=== PATIENT | female | born 1950 | race Caucasian/White ===

== ENCOUNTER 2017-01-16 13:25 | Outpatient (CLI) | payer MEDICARE, OTHER | END 2017-01-16 13:26 | disposition home or self-care (01) | DX: K58.9 Irritable bowel syndrome, unspecified (principal); D50.9 Iron deficiency anemia, unspecified; I10 Essential (primary) hypertension; M51.86 Other intervertebral disc disorders, lumbar region; F32.9 Major depressive disorder, single episode, unspecified; E78.5 Hyperlipidemia, unspecified ==

== ENCOUNTER 2017-04-18 16:46 | Outpatient (CLI) | payer MEDICARE, OTHER | END 2017-04-18 16:47 | disposition critical access hospital (66) | LOC: EMS 16:46 | PROVIDERS: ATTEND Surgery | DX: R45.89 Other symptoms and signs involving emotional state (principal) | CPT/HCPCS: A0425; A0429 ==

== ENCOUNTER 2017-04-18 17:16 | Emergency (ER) | payer MEDICARE, OTHER ==
[2017-04-18 17:25] VITALS: BP 129/88
--- NOTE | 2017-04-18 18:02 | ED Physician Documentation ---
PD HPI MHE - Stated complaint Stated Complaint: MHE - Chief complaint Chief Complaint: MHE - History obtained from History obtained from: Patient - History of Present Illness Primary symptom: Depression. No: Suicidal ideation, Psychosis, Off meds (had started a new med last week for insomnia and says she is sleeping better but still feeling a bit foggy during the mornings and thinks it might be too strong. Her main complaint here in ED is having problems with her apartment, feeling there is mold in it and it might be causing some congestion the trouble sleeping. The school business manager and low-income housing contact center consultant had not gotten back to her in the past few days after she called them.) Timing - onset: How many weeks ago (trouble sleeping for weeks, being treated. Troubles with her apartment mold for long time.) Contributing factors: Other (housing problems with her apartment) Similar symptoms before: Has not had sx before Recently seen: Clinic (seen for insomnia and had Seroquel Rx, which she says is allowing her to sleep better, but feeling foggy in the mornings.) Review of Systems Constitutional: denies: Fever, Chills Nose: denies: Rhinorrhea / runny nose, Congestion Throat: denies: Sore throat Cardiac: denies: Chest pain / pressure Respiratory: denies: Cough GI: denies: Abdominal Pain, Nausea, Vomiting, Diarrhea, Bloody / black stool : denies: Dysuria, Frequency Musculoskeletal: reports: Back pain (chronic) Neurologic: denies: Generalized weakness, Difficulty speaking, Near syncope, Confused, Altered mental status, Headache Psychiatric: reports: Anxiety, Insomnia. 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 HEENT: Tonsil/Adenoidectomy, Other - Present Medications Home Medications: Ambulatory Orders Medication Instructions Recorded Confirmed Albuterol Sulfate [Albuterol 2 puffs INH Q6HR PRN 03/23/15 04/16/17 Sulfate Hfa] Cetirizine [ZyrTEC] 10 mg PO DAILY 03/23/15 04/16/17 Fluticasone [Flonase] 2 spr OPHELIA DAILY 03/23/15 04/16/17 Gabapentin 900 mg PO DAILY 03/23/15 04/16/17 Lisinopril 10 mg PO DAILY 03/23/15 04/16/17 Montelukast Sodium [Singulair] 10 mg PO DAILY 03/23/15 04/16/17 Omeprazole [PriLOSEC] 1 cap PO DAILY 03/23/15 04/16/17 amLODIPine [Norvasc] 1 tab PO DAILY 03/23/15 04/16/17 oxyCODONE/ACET 5/325 [Percocet 5 1 tab PO TID 03/23/15 04/16/17 mg/325 mg] Ketoconazole 1 applic TP BID PRN 02/19/17 04/16/17 QUEtiapine [SEROquel] 50 mg PO DAILY 04/16/17 04/16/17 Benzonatate [Tessalon] 100 mg PO TID PRN #25 capsule 04/18/17 Dexamethasone [Decadron] 4 mg PO DAILY #5 tablet 04/18/17 - Allergies Allergies/Adverse Reactions: Allergies Allergy/AdvReac Type Severity Reaction Status Date / Time ibuprofen [From Motrin] AdvReac Headache Verified 03/23/15 13:04 - Social History Does the pt smoke?: No Smoking Status: Never smoker PD ED PE NORMAL - Vitals Vital signs reviewed: Yes - General General: Alert and oriented X 3, Well developed/nourished - HEENT HEENT: PERRL, EOMI, Pharynx benign - Neck Neck: Supple, no meningeal sign, No adenopathy - Cardiac Cardiac: RRR, No murmur - Respiratory Respiratory: Clear bilaterally - Abdomen Abdomen: Soft, Non tender - Derm Derm: Normal color, Warm and dry - Extremities Extremities: No tenderness to palpate, Normal ROM s pain - Neuro Neuro: Alert and oriented X 3, 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 She is also having trouble with her housing apartment and says the car rental agency manager is not responding to her. She asks if SW can help with that. I told her that they have gone for the day but I also don't think that they would have much enforcement/control over low-income housing issues. ), d/w patient Departure - Departure Disposition: 01 Home, Self Care Clinical Impression: Medication side effect, Cough Condition: Stable Record reviewed to determine appropriate education?: Yes Follow-Up: William Diaz MD [Provider Admit Priv/Credential] - Prescriptions: Dexamethasone [Decadron] 4 mg PO DAILY #5 tablet Benzonatate [Tessalon] 100 mg PO TID PRN #25 capsule PRN Reason: Cough Comments: I would suggest cutting the Seroquel in half (25 mg) at night and see if it does not give as much side effect and still allow sleep. For the cough, Continue your Albuterol inhaler 2 puffs 3-4 times daily. Can add Tessalon for cough and also Decadron (mild steroid) to reduce bronchiole inflammation. Follow up PMD Friday. Discharge Date/Time: 04/18/17 18:59
[2017-04-18] MEDS ORDERED: oxyCOD/ACETAMIN 5 MG/325 MG TABLET PO STA (18:14)
[2017-04-18] MEDS ORDERED: GABAPENTIN 100 MG CAPSULE PO STA (18:14)
[2017-04-18] MEDS ORDERED: oxyCOD/ACETAMIN 5 MG/325 MG TABLET PO ONE (18:22)
[2017-04-18] MEDS ORDERED: GABAPENTIN 300 MG CAPSULE ONE (18:23)
== END 2017-04-18 18:59 | disposition home or self-care (01) ==
LOC: EDUNIT# → ED 17:16
DX: F41.9 Anxiety disorder, unspecified (principal); T50.995A Adverse effect of other drugs, medicaments and biological substances, initial encounter; R05 Cough; I10 Essential (primary) hypertension; J44.9 Chronic obstructive pulmonary disease, unspecified; J45.909 Unspecified asthma, uncomplicated; Z86.010 Personal history of colon polyps; M19.90 Unspecified osteoarthritis, unspecified site; M06.9 Rheumatoid arthritis, unspecified; M10.9 Gout, unspecified
CPT/HCPCS: 99283; A9270

== ENCOUNTER 2017-05-28 14:00 | Outpatient (CLI) | payer MEDICARE, OTHER ==
--- NOTE | 2017-05-29 17:36 | Mammography Report ---
DIGITAL SCREENING MAMMOGRAM: 05/28/2017 CLINICAL INDICATION: A 66-year-old for screening. COMPARISON: 12/2010, 06/2009, 11/2007. TECHNIQUE: Routine CC and MLO projections were obtained of the breasts. FINDINGS: Scattered fibroglandular tissue is present within the breasts. There are no dominant mass es, suspicious microcalcifications, or secondary signs of malignancy. In comparison to the previous studies, there are no significant changes. ASSESSMENT: NO MAMMOGRAPHIC EVIDENCE OF MALIGNANCY. NO SIGNIFICANT INTERVAL CHANGES. RECOMMENDATION: Screening mammography is recommended annually. BIRADS category 1 - negative. STANDARD QUALIFYING STATEMENTS 1. This examination was reviewed with the aid of Computed-Aided Detection (CAD). 2. A negative or benign imaging report should not delay biopsy if clinically suspicious findings are present. Consider surgical consultation if warranted. More than 5% of cancers are not identified b y imaging. 3. Dense breasts may obscure an underlying neoplasm. JOB #: [id number] EXT JOB #:[id number]
== END 2017-05-28 14:01 | disposition home or self-care (01) ==
LOC: DI 14:00
PROVIDERS: ATTEND Internal Medicine
DX: Z12.31 Encounter for screening mammogram for malignant neoplasm of breast (principal)
CPT/HCPCS: 77067

== ENCOUNTER 2017-06-03 12:56 | Outpatient (CLI) | payer MEDICARE, OTHER ==
--- NOTE | 2017-06-04 08:52 | XRAY Report ---
TWO-VIEW CHEST: 06/03/2017 CLINICAL INDICATION: Asthma. FINDINGS: Frontal and lateral views of the chest demonstrate a normal cardiac silhouette. The lungs are hyperinflated, compatible with COPD. No focal consolidation, effusion, or pneumothorax is prese nt. IMPRESSION: HYPERINFLATION. NO EVIDENCE OF ACUTE CARDIOPULMONARY DISEASE. JOB #: [id number] EXT JOB #:[id number]
== END 2017-06-03 12:57 | disposition home or self-care (01) ==
LOC: RT 12:56
PROVIDERS: ATTEND Internal Medicine
DX: J45.909 Unspecified asthma, uncomplicated (principal); R05 Cough; F17.200 Nicotine dependence, unspecified, uncomplicated
CPT/HCPCS: 71020; 94010

== ENCOUNTER 2017-07-11 09:39 | Outpatient (CLI) | payer MEDICARE, OTHER ==
--- NOTE | 2017-07-11 13:33 | DEXA Report ---
DEXA SCAN: 07/11/2017 CLINICAL INDICATION: Postmenopausal. TECHNIQUE: Dual energy x-ray absorptiometry (DXA) was performed on a [employer] system. Regions measured are the AP spine, femoral neck, and, if needed, forearm. COMPARISON: None. In accordance with the International Society for Clinical Densitometry (ISCD) guidelines, data from previous exams may be reanalyzed using current recommendations and techniques. This is done to allow a more accurate basis for comparison with the current study. FINDINGS The data for the lumbar spine is as follows: REGION BMD (g/cm/cm) T-SCORE Z-SCORE L1 0.952 -1.5 0.1 L2 1.425 1.9 3.5 L3 1.430 1.9 3.5 L4 1.156 -0.4 1.3 TOTAL 1.236 0.5 2.1 NOTE: All evaluable vertebrae are used for classification. The data for the hip is as follows: REGION BMD (g/cm/cm) T-SCORE Z-SCORE Neck 0.865 -1.2 0.3 TOTAL 0.8788 -1.0 0.2 NOTE: The femoral neck or total proximal femur, whichever is lowest, is used for classification. IMPRESSION: THE WHO CLASSIFICATION BASED ON THE INTERNATIONAL REFERENCE STANDARD IS OSTEOPENIA (REFERENCE LEFT FEMORAL NECK). THE FRACTURE RISK IS INCREASED. RECOMMENDATION: Patients with diagnosis of osteoporosis or osteopenia should have regular bone mineral density assessment. For those eligible for Medicare, routine testing is allowed once every 2 years. Testing frequency can be increased for patients who have rapidly progressing disease or for those who are receiving medical therapy to restore bone mass. COMMENT: World Health Organization (WHO) definitions for osteoporosis and osteopenia: NORMAL BMD: T-score at -1.0 or higher, fracture risk is low. OSTEOPENIA BMD: T-score between -1.0 and -2.5, fracture risk is increased. OSTEOPOROSIS BMD: T-score at -2.5 or lower, fracture risk high. National Osteoporosis Foundation recommends: 1. Obtain adequate dietary calcium (at least 1200 mg per day) and vitamin D (400 -800 international units per day). 2. Participate, as appropriate, in regular weightbearing and muscle- strengthening exercise. 3. Avoid tobacco use and reduce alcohol and caffeine intake. 4. For more detailed information see the website at www.NOF.org. MTDD
== END 2017-07-11 09:40 | disposition home or self-care (01) ==
LOC: DI 09:39
PROVIDERS: ATTEND Internal Medicine
DX: M85.88 Other specified disorders of bone density and structure, other site (principal); N95.8 Other specified menopausal and perimenopausal disorders
CPT/HCPCS: 77080

== ENCOUNTER 2017-07-16 15:31 | Outpatient (CLI) | payer MEDICARE, OTHER ==
--- NOTE | 2017-07-17 11:08 | CT Report ---
CT CHEST WITHOUT CONTRAST FOR LUNG CANCER SCREENIN07/16/2017 CLINICAL INDICATION: A 66-year-old asymptomatic patient with [id number] history of smoking, curren t smoker for lung cancer screening. TECHNIQUE: Axial CT images of the chest were obtained without intravenous contrast, using low-dose s creening technique. No previous CT is available for comparison. In accordance with CT protocol optimization, one or more of the following dose reduction techniques w ere utilized for this exam: automated exposure control, adjustment of mA and/or KV based on patient size, or use of iterative reconstructive technique. FINDINGS: The heart and great vessels demonstrate atherosclerotic calcifications. No hilar or media stinal lymphadenopathy is present. The lungs demonstrate emphysematous changes. There is a 5-mm nod ule in the posterolateral left lower lobe (axial image 87), and a 3-mm nodule in the anterolateral ri ght lower lobe (axial image 67). No effusion or pneumothorax is present. Limited evaluation of uppe r abdominal structures demonstrates normal adrenal glands. Osseous structures demonstrate degenerati ve changes. IMPRESSION: BENIGN APPEARANCE. RECOMMENDATION: Continue annual screening with low-dose CT in 12 months. LUNG-RADS CATEGORY 2 - BENIGN APPEARANCE. JOB #: [id number] EXT JOB #:[id number]
== END 2017-07-16 15:32 | disposition home or self-care (01) ==
LOC: DI 15:31
PROVIDERS: ATTEND Internal Medicine
DX: Z12.2 Encounter for screening for malignant neoplasm of respiratory organs (principal); F17.210 Nicotine dependence, cigarettes, uncomplicated

== ENCOUNTER 2017-10-23 12:45 | Outpatient (CLI) | payer MEDICARE, OTHER ==
--- NOTE | 2017-10-23 18:47 | XRAY Report ---
DATE OF SERVICE: 10/23/2017 TWO VIEW BILATERAL FEET: 10/23/2017 CLINICAL INDICATION: Rheumatoid arthritis. Frontal and lateral views of the bilateral feet demonstrate bilateral arthritic changes of the first metatarsophalangeal joints, with moderate hallux valgus bilaterally. There is no evidence of acute fracture. No periarticular erosions are seen. IMPRESSION: Moderate bilateral hallux valgus, with moderate arthritic changes at the 1st metatarsophalangeal joints. TD: 10/23/2017 19:46
== END 2017-10-23 12:46 | disposition home or self-care (01) ==
LOC: DI 12:45
PROVIDERS: ATTEND Family Medicine
DX: M06.9 Rheumatoid arthritis, unspecified (principal); M20.12 Hallux valgus (acquired), left foot; M20.11 Hallux valgus (acquired), right foot

== ENCOUNTER 2018-03-10 16:07 | Emergency (ER) | payer MEDICARE, OTHER ==
[2018-03-10 17:06] LABS: BILIRUBIN,URINE NEGATIVE (NEGATIVE); GLUCOSE, URINE (UA) NEGATIVE (NEGATIVE); KETONES,URINE (UA) NEGATIVE (NEGATIVE); LEUKOCYTE ESTERASE, URINE NEGATIVE (NEGATIVE); NITRITE,URINE NEGATIVE (NEGATIVE); OCCULT BLOOD,URINE NEGATIVE (NEGATIVE); PH,URINE 7.5 PH (5.0-7.5); PROTEIN,URINE NEGATIVE (NEGATIVE); UROBILINOGEN,URINE 0.2 (NORMAL) E.U./dL (NORMAL)
[2018-03-10 17:07] LABS: CLARITY,URINE CLEAR (CLEAR)
[2018-03-10] MEDS ORDERED: DEXAMETHASONE 10 MG/ML VIAL IVP STA (17:24)
[2018-03-10] MEDS ORDERED: KETOROLAC 60 MG/2 ML VIAL IVP STA (17:24)
[2018-03-10] MEDS ORDERED: SODIUM CHLORIDE 0.9% 1,000 ML IV ONE (17:24)
[2018-03-10] MEDS ORDERED: cefTRIAXone 1 GM in SODIUM CHLORIDE 0.9% MINIBAG 100 ML IV STA (17:24)
--- NOTE | 2018-03-10 17:27 | ED Physician Documentation ---
PD HPI BACK PAIN - Stated complaint Stated Complaint: LOW BACK PX - Chief complaint Chief Complaint: Back Pain - History obtained from History obtained from: Patient - History of Present Illness Timing - onset: How many months ago (2+) Timing - duration: Months (2+) Timing - details: Gradual onset, Still present, Waxing and waning Location: Lower, Right Quality: Pain, Spasm, Sharp Associated symptoms: No: Fever, Weakness, Numbness, Incontinent of urine, Unable to urinate, Hematuria, Incontinent of stool Improves with: Position, Meds Worsened by: Movement Similar symptoms before: Diagnosis (sciatica) Recently seen: Clinic - Additional information Additional information: 67-year-old female with history of fibromyalgia who is on Percocet regularly has developed some pain in her right back and radiation around to the front. She has had this present for about 2 months now and the pain has become intolerable. She does have recollection that while she was taking some antibiotics for an abscessed tooth her pain seemed to improve somewhat and when she finished the antibiotics the pain came back and is now worse. She does have a history of irritable bowel and feels that her bowels are "all messed up". She is having some issues with constipation and low stool output. She takes Percocet 3 per day and she is not having relief of this pain that medicine. Review of Systems Constitutional: reports: Myalgias, Fatigue, Sweats. denies: Fever Eyes: denies: Decreased vision Ears: reports: Ear pain Nose: reports: Congestion, Sinus pressure / pain Throat: denies: Sore throat Cardiac: denies: Chest pain / pressure, Palpitations Respiratory: denies: Dyspnea, Cough GI: reports: Abdominal Pain, Constipation : denies: Dysuria, Frequency Skin: denies: Rash Musculoskeletal: reports: Back pain, Extremity pain. 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 HEENT: Tonsil/Adenoidectomy, Other - Present Medications Home Medications: Ambulatory Orders Medication Instructions Recorded Confirmed Albuterol Sulfate [Albuterol 2 puffs INH Q6HR PRN 03/23/15 01/07/18 Sulfate Hfa] Fluticasone [Flonase] 2 spr OPHELIA DAILY 03/23/15 01/07/18 Gabapentin 900 mg PO DAILY 03/23/15 01/07/18 Lisinopril 10 mg PO DAILY 03/23/15 01/07/18 Montelukast Sodium [Singulair] 10 mg PO DAILY 03/23/15 01/07/18 Omeprazole [PriLOSEC] 1 cap PO DAILY 03/23/15 01/07/18 amLODIPine [Norvasc] 1 tab PO DAILY 03/23/15 01/07/18 oxyCODONE/ACET 5/325 [Percocet 5 1 tab PO TID 03/23/15 01/07/18 mg/325 mg] Ketoconazole 1 applic TP BID PRN 02/19/17 01/07/18 QUEtiapine [SEROquel] 50 mg PO DAILY 04/16/17 01/07/18 Cyclobenzaprine HCl 1 tab PO DAILY 01/07/18 01/07/18 Meloxicam 1 tab PO DAILY 01/07/18 01/07/18 Amox/Clav 875/125 [Augmentin] 1 each PO Q12H #20 tablet 03/10/18 - Allergies Allergies/Adverse Reactions: Allergies Allergy/AdvReac Type Severity Reaction Status Date / Time ibuprofen [From Motrin] AdvReac Headache Verified 03/23/15 13:04 - Social History Does the pt smoke?: No Smoking Status: Never smoker PD ED PE NORMAL - Vitals Vital signs reviewed: Yes - General General: Alert and oriented X 3, No acute distress, Well developed/nourished - HEENT HEENT: Atraumatic, PERRL, EOMI, Other (The mucous membranes are dry. The TM's are inflamed bilaterally with rounding of the landmarks. ) - Neck Neck: Supple, no meningeal sign, No bony TTP - Cardiac Cardiac: RRR, No murmur - Respiratory Respiratory: No respiratory distress, Clear bilaterally - Abdomen Abdomen: Soft, Other (There is specific right lower quadrant pain to palpation along the inguinal ligament. ) - Back Back: No CVA TTP, Other (There is tenderness to a specific area of the lower lumbar spine over the L4/5 region on the right. ) - Derm Derm: Normal color, Warm and dry, No rash - Extremities Extremities: No deformity, No edema - Neuro Neuro: Alert and oriented X 3, No motor deficit, No sensory deficit, Normal speech Eye Opening: Spontaneous Motor: Obeys Commands Verbal: Oriented GCS Score: 15 - Psych Psych: Other (The mood is defeated and the affect is flat. ) Results - Vitals Vitals: Vital Signs - 24 hr 03/10/18 16:35 Temperature 36.6 C Heart Rate 78 Respiratory 17 Rate Blood Pressure 142/65 H O2 Saturation 100 Oxygen O2 Source Room air - Labs Labs: Laboratory Tests 03/10/18 03/10/18 03/10/18 16:50 17:30 17:30 WBC 7.2 RBC 4.43 Hgb 13.2 Hct 40.0 MCV 90.4 MCH 29.9 MCHC 33.0 RDW 13.6 Plt Count 256 MPV 7.5 L Neut # (Auto) 4.7 Lymph # (Auto) 2.0 Mitchell # (Auto) 0.5 Eos # (Auto) 0.1 Baso # (Auto) 0.0 Absolute Nucleated RBC 0.00 Nucleated RBC % 0.0 Sodium 133 L Potassium 4.7 Chloride 98 L Carbon Dioxide 26 Anion Gap 9.0 BUN 11 Creatinine 0.8 Estimated GFR (MDRD) 72 L Glucose 100 Calcium 10.1 Total Bilirubin 0.5 AST 24 ALT 16 Alkaline Phosphatase 95 Total Protein 7.5 Albumin 4.8 Globulin 2.7 Albumin/Globulin Ratio 1.8 Lipase 31 Urine Color YELLOW Urine Clarity CLEAR Urine pH 7.5 Ur Specific [place] 1.010 Urine Protein NEGATIVE Urine Glucose (UA) NEGATIVE Urine Ketones NEGATIVE Urine Occult Blood NEGATIVE Urine Nitrite NEGATIVE Urine Bilirubin NEGATIVE Urine Urobilinogen 0.2 (NORMAL) Ur Leukocyte Esterase NEGATIVE Ur Microscopic Review NOT INDICATED Urine Culture Comments NOT INDICATED - Rads (name of study) CT abdomen and pelvis with Radiology: Prelim report reviewed (Impression: 1. Right renal lithiasis.2 Mild obstipation.3 Normal appendix.), EMP read indepedently, See rad report PD MEDICAL DECISION MAKING - ED course Complexity details: reviewed results, re-evaluated patient, considered differential, d/w patient ED course: 67 y/o female with right sided hip/inguinal pain for months does not think this is her sciatica. She does have the curious history of her pain being better while she was on abx for a tooth abcess and sinus infection. On exam today she continues to have evidence of OM. She reports poor stool output and she is tender to the inguinal ligament. A CT scan of the abdomen and pelvis is ordered and she is treated for sciatica and OM with decadron, rocephin and toradal as well as a liter of saline. Her CT scan is impressive for the amount of stool present and this is addressed with the patient as well. Departure - Departure Disposition: 01 Home, Self Care Clinical Impression: Constipation by delayed colonic transit Sciatica Qualifiers: Laterality: right Qualified Code(s): M54.31 - Sciatica, right side Otitis media Qualifiers: Otitis media type: suppurative Chronicity: acute Laterality: bilateral Recurrence: not specified as recurrent Spontaneous tympanic membrane rupture: without spontaneous rupture Qualified Code(s): H66.003 - Acute suppurative otitis media without spontaneous rupture of ear drum, bilateral Condition: Stable Instructions: ED Constipation, ED Otitis Media Acute Adult, ED Sciatica Follow-Up: Waylon Power DO [Primary Care Provider] - Prescriptions: Amox/Clav 875/125 [Augmentin] 1 each PO Q12H #20 tablet
[2018-03-10 17:40] LABS: BASOPHILS % (AUTO) 0.7 %; EOSINOPHILS # (AUTO) 0.1 10^3/uL (0.0-0.7); HGB - HEMOGLOBIN 13.2 g/dL (12.0-16.0); LYMPHOCYTES % (AUTO) 26.9 %; MEAN CORPUSCULAR HEMOGLOBIN 29.9 pg (27.0-31.0); MEAN CORPUSCULAR VOLUME 90.4 fL (81.0-99.0); MEAN PLATELET VOLUME 7.5 fL (7.9-10.8); MONOCYTES # (AUTO) 0.5 10^3/uL (0.0-1.0); MONOCYTES % (AUTO) 6.3 %; NEUTROPHILS # (AUTO) 4.7 10^3/uL (1.5-6.6); NEUTROPHILS % (AUTO) 65.1 %; PLT - PLATELET COUNT 256 10^3/uL (130-450); RED BLOOD COUNT 4.43 10^6/uL (4.20-5.40); RED CELL DISTRIBUTION WIDTH 13.6 % (12.0-15.0); WHITE BLOOD COUNT 7.2 x10^3/uL (4.8-10.8)
[2018-03-10 17:53] LABS: ALBUMIN 4.8 g/dL (3.2-5.5); ALBUMIN/GLOBULIN RATIO 1.8 (1.0-2.2); BILIRUBIN,TOTAL 0.5 mg/dL (0.2-1.0); CALCIUM 10.1 mg/dL (8.5-10.3); CREATININE 0.8 mg/dL (0.4-1.0); TOTAL PROTEIN 7.5 g/dL (6.7-8.2)
[2018-03-10] MEDS ORDERED: IOPAMIDOL-300 100 ML VIAL ONE (17:56)
[2018-03-10] MEDS ORDERED: cefTRIAXone 1 GM VIAL ONE (18:04)
[2018-03-10] MEDS ORDERED: IOPAMIDOL-300 100 ML VIAL IVP ONE (18:32)
[2018-03-10] MEDS ORDERED: MAGNESIUM HYDROXIDE 2,400 MG/30 ML UDC PO STA (18:43)
--- NOTE | 2018-03-10 18:53 | CT Preliminary Report ---
Exam: CT ABDOMEN/PELVIS W/ IMPRESSION: 1. Right renal lithiasis. 2. Mild obstipation. 3. Normal appendix. [facility] SITE ID: [id number]
--- NOTE | 2018-03-10 18:55 | CT Report ---
EXAM: CT ABDOMEN AND PELVIS. EXAM DATE: 03/10/2018 06:15 PM. CLINICAL HISTORY: Right lower quadrant pain for several weeks, increasing since last week. Nausea and vomiting. Chronic constipation. COMPARISONS: None. TECHNIQUE: Routine helical CT imaging was performed through the abdomen and pelvis. IV contrast: 100 cc Isovue-300. Enteric contrast: No. Reconstructions: Coronal and sagittal. In accordance with CT protocol optimization, one or more of the following dose reduction techniques w ere utilized for this exam: automated exposure control, adjustment of mA and/or KV based on patient s ize, or use of iterative reconstructive technique. FINDINGS: Lung Bases: Unremarkable. Liver: Normal. No masses. Gallbladder/Bile Ducts: Unremarkable. Spleen: Normal. Pancreas: Normal. Adrenal Glands: Normal. Kidneys: 2 mm stone superior right calyx. Several 2.5 cm and smaller left renal cyst. Kidneys are otherwise unremarkable. No hydronephrosis. Peritoneal Cavity/Bowel: Marked amount of stool throughout the borderline enlarged colon. No free flu id, free air or adenopathy. No masses or acute inflammatory process. The appendix is well visualized and normal. Pelvic Organs: No stones within the small caliber urinary bladder. Uterus is either very small or amy gically absent. No free fluid nor adnexal mass lesions. Vasculature: No aneurysms or other significant abnormality. Bones: Marked degenerative disk disease L2-L3 . No significant abnormality. Other: None. IMPRESSION: 1. Right renal lithiasis. 2. Mild obstipation. 3. Normal appendix. [facility] Referring Provider Line: [phone] SITE ID: [id number]
[2018-03-10 19:17] VITALS: BP 178/75
== END 2018-03-10 19:16 | disposition home or self-care (01) ==
LOC: ED 16:07
DX: K59.01 Slow transit constipation (principal); M54.31 Sciatica, right side; H66.003 Acute suppurative otitis media without spontaneous rupture of ear drum, bilateral; I10 Essential (primary) hypertension; M06.9 Rheumatoid arthritis, unspecified
CPT/HCPCS: 36415; 74177; 80053; 81003; 83690; 85025; 96365; 96375; 99283; 99284; A9270; Q9967; 81001; 87086

== ENCOUNTER 2018-03-22 14:44 | Emergency (ER) | payer MEDICARE, OTHER ==
[2018-03-22] MEDS ORDERED: LIDOCAINE PATCH 5% TOP PRN (15:30)
--- NOTE | 2018-03-22 15:36 | ED Physician Documentation ---
History of Present Illness - Stated complaint Stated Complaint: BK PX/R LEG PX - Chief complaint Chief Complaint: Back Pain - Additonal information Additional information: hx from pt 67 female pmhx HTN COPD colon polyps RA fibromyalgia anxiety bipolar and anemia suffers from chronic pain has had low back pain for years worse recently rad to RLE (ant thigh to the foot) states she had recent dental work - but had back pain prior also recent lili OM dx in ER has had fevers at home which she has been treating with percocet diff urinating - hard to void - no incont or hematuria she is weak due to the pain she has numbness in her right leg also has constipation 2/2 pain meds last colonoscopy was 3 yr ago and showed polyps no blood in BM or urine in ED pt had CT AP with IV con that showd degen changes but no bony mets and no AAA, lili renal stones but no ureteral stones, no evidence of asbcess on CT txed with steroids in ED and dc on augmentin which she finished followed up with her PMD - per pt PMD checked her ears and her knee which has been giving out, and gave her a steroid shot for the back pain but no MRI has been discussed per pt she is presently on percocet gabapentin flexeril meloxicam as well as meds for her COPD and HTN she feels very drowsy 2/2 pain meds but she drove herself here (which i told her she absolutely cannot do as it endangers others) states pain is not controlled nurse screening question pt responded that she sometimes thinks about suicide when the pain is bad - I asked her and she is not suicidal at this time - she has outpt counselor Review of Systems Constitutional: reports: Fever Cardiac: denies: Chest pain / pressure Respiratory: denies: Dyspnea GI: reports: Abdominal Pain, Constipation. denies: Nausea Musculoskeletal: reports: Back pain Neurologic: reports: Numbness (RLE). 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 HEENT: Tonsil/Adenoidectomy, Other - Present Medications Home Medications: Ambulatory Orders Medication Instructions Recorded Confirmed Albuterol Sulfate [Albuterol 2 puffs INH Q6HR PRN 03/23/15 01/07/18 Sulfate Hfa] Fluticasone [Flonase] 2 spr OPHELIA DAILY 03/23/15 01/07/18 Gabapentin 900 mg PO DAILY 03/23/15 01/07/18 Lisinopril 10 mg PO DAILY 03/23/15 01/07/18 Montelukast Sodium [Singulair] 10 mg PO DAILY 03/23/15 01/07/18 Omeprazole [PriLOSEC] 1 cap PO DAILY 03/23/15 01/07/18 oxyCODONE/ACET 5/325 [Percocet 5 1 tab PO TID 03/23/15 01/07/18 mg/325 mg] Ketoconazole 1 applic TP BID PRN 02/19/17 01/07/18 Cyclobenzaprine HCl 1 tab PO DAILY 01/07/18 01/07/18 Meloxicam 1 tab PO DAILY 01/07/18 01/07/18 Felodipine [Felodipine ER] 03/22/18 Lidocaine Patch 5% [Lidoderm Patch] 1 each TOP DAILY PRN #10 patch 03/22/18 - Allergies Allergies/Adverse Reactions: Allergies Allergy/AdvReac Type Severity Reaction Status Date / Time ibuprofen [From Motrin] AdvReac Headache Verified 03/23/15 13:04 - Social History Does the pt smoke?: No Smoking Status: Never smoker PD ED PE NORMAL - Vitals Vital signs reviewed: Yes - General General: Alert and oriented X 3 - Cardiac Cardiac: RRR - Respiratory Respiratory: No respiratory distress - Abdomen Abdomen: Soft, Other (mod TTP s peritoneal signs and no pulsatile mass (and pt had a CT within last 2 weeks for same sx)) - Back Back: Other (no focal spine pain redness or swelling, diffuse pain does not seem to be worsened by palpation but is worse with movement) - Derm Derm: Normal color - Extremities Extremities: Normal ROM s pain. No: No edema (mod lili symm edema R > L) - Neuro Neuro: Alert and oriented X 3, Other (states dec senaation RLE, denies saddle anesthesia, SLR worsens back pain but not leg pain, no ankle clonus, very weak effort at all attempts at ROM 2/2 pain but is able to attempt foot dorsi plant knee ext and hip flexion, tried but could not get pt postioned well enough to check patellar DTRs) Results - Vitals Vitals: Vital Signs - 24 hr 03/22/18 03/22/18 14:49 17:22 Temperature 36.6 C Heart Rate 84 72 Respiratory 18 16 Rate Blood Pressure 114/61 151/81 H O2 Saturation 98 99 Oxygen O2 Source Room air - Labs Labs: Laboratory Tests 03/22/18 03/22/18 03/22/18 15:39 15:39 15:39 WBC 6.7 RBC 4.51 Hgb 14.0 Hct 41.6 MCV 92.1 MCH 31.0 MCHC 33.6 RDW 13.5 Plt Count 279 MPV 7.4 L Neut # (Auto) 4.4 Lymph # (Auto) 1.7 [place] # (Auto) 0.5 Eos # (Auto) 0.0 Baso # (Auto) 0.0 Absolute Nucleated RBC 0.01 Nucleated RBC % 0.1 ESR 6 Sodium 135 Potassium 3.7 Chloride 99 L Carbon Dioxide 27 Anion Gap 9.0 BUN 8 Creatinine 0.6 Estimated GFR (MDRD) 100 Glucose 106 H Calcium 9.9 C-Reactive Protein < 1.0 Urine Color Urine Clarity Urine pH Ur Specific [place] Urine Protein Urine Glucose (UA) Urine Ketones Urine Occult Blood Urine Nitrite Urine Bilirubin Urine Urobilinogen Ur Leukocyte Esterase Ur Microscopic Review Urine Culture Comments 03/22/18 16:31 WBC RBC Hgb Hct MCV MCH MCHC RDW Plt Count MPV Neut # (Auto) Lymph # (Auto) [place] # (Auto) Eos # (Auto) Baso # (Auto) Absolute Nucleated RBC Nucleated RBC % ESR Sodium Potassium Chloride Carbon Dioxide Anion Gap BUN Creatinine Estimated GFR (MDRD) Glucose Calcium C-Reactive Protein Urine Color LT. YELLOW Urine Clarity CLEAR Urine pH 7.5 Ur Specific [place] 1.010 Urine Protein NEGATIVE Urine Glucose (UA) NEGATIVE Urine Ketones NEGATIVE Urine Occult Blood NEGATIVE Urine Nitrite NEGATIVE Urine Bilirubin NEGATIVE Urine Urobilinogen 0.2 (NORMAL) Ur Leukocyte Esterase NEGATIVE Ur Microscopic Review NOT INDICATED Urine Culture Comments NOT INDICATED - Rads (name of study) duplex RLE Radiology: See rad report (neg ) PD MEDICAL DECISION MAKING - ED course ED course: back pain is long standing by pt report but worse recently reported fevers at home and worsening pain were concerning pt had recent CT with IV con for same sx within the last two weeks - no spine abn seen - considered MRI but that service is not available today at [facility] so checked labs and post void pt is afebrile here, has no saddle anesthesia, nl WBC, neg ESR and CRP and had a post void residual of zero so given the resources available to me at this time, i feel it is unlikely pt had an epidural abscess or cauda equina she is already on numerous meds for pain so will not b able to rx further controlled meds for her she reports no relief with steroids from her PMD so will add lido patches still feel pt needs a MRI but feel safe to defer to outpt setting will ask her to fup PMD next 48 hr to get this scheduled she was ambulating independently in the ER after lido and ofirmev - Sepsis Event Vital Signs: Vital Signs - 24 hr 03/22/18 03/22/18 14:49 17:22 Temperature 36.6 C Heart Rate 84 72 Respiratory 18 16 Rate Blood Pressure 114/61 151/81 H O2 Saturation 98 99 Oxygen O2 Source Room air Departure - Departure Disposition: Home, Self Care Clinical Impression: Sciatica Qualifiers: Laterality: right Qualified Code(s): M54.31 - Sciatica, right side Condition: Good Instructions: ED Sciatica, ED Neck Back Pain General Follow-Up: Waylon Power DO [Primary Care Provider] - (tomorroow to discuss getting a MRI) Prescriptions: Lidocaine Patch 5% [Lidoderm Patch] 1 each TOP DAILY PRN #10 patch PRN Reason: Pain Comments: We tried to get a MRI today for you but that service is not available on Sundays Your exam and work up with the resources that are available today are reassuring that you do not have a severe disk herniation compressing your spinal cord or an infection around the spinal cord. I still want you to get the MRI but given the reassuring work up, I think it safe for you to go home for tonight and have your PMD order the MRI as an outpatient. Because of the leg pain and your limited mobility, we also got an ultrasound of you leg and no blood clot was found You had a CT scan for similar symptoms within the last few weeks and no aneurysms was seen, some degenerative changes of the spine were noted but no fracture or bony displacement And the urine sample does not show any blood to suggest a kidney stone is passing nor any bacteria to suggest a kidney infection You are already on percocet gabapentin flexeril and meloxicam so the only medication i can think to add is lidocaine patches You reported to the ER staff that the severity of the pain sometimes makes you think about . you told me you were not feeling suicidal today. But I do recommend you follow up with your counselor about these feelings and ways to help handle the burden of chronic pain You cannot drive while taking sedating medications - it puts you and everyone else at risk
[2018-03-22 15:50] LABS: BASOPHILS % (AUTO) 0.5 %; EOSINOPHILS % (AUTO) 0.6 %; LYMPHOCYTES # (AUTO) 1.7 10^3/uL (1.5-3.5); LYMPHOCYTES % (AUTO) 25.2 %; MEAN CORPUSCULAR HGB CONC 33.6 g/dL (32.0-36.0); MEAN CORPUSCULAR VOLUME 92.1 fL (81.0-99.0); MEAN PLATELET VOLUME 7.4 fL (7.9-10.8); MONOCYTES # (AUTO) 0.5 10^3/uL (0.0-1.0); MONOCYTES % (AUTO) 7.7 %; NEUTROPHILS # (AUTO) 4.4 10^3/uL (1.5-6.6); PLT - PLATELET COUNT 279 10^3/uL (130-450); RED BLOOD COUNT 4.51 10^6/uL (4.20-5.40); RED CELL DISTRIBUTION WIDTH 13.5 % (12.0-15.0); WHITE BLOOD COUNT 6.7 x10^3/uL (4.8-10.8)
[2018-03-22] MEDS ORDERED: ACETAMINOPHEN 1,000 MG/100 ML 100 ML IV STA (16:03)
[2018-03-22 16:05] LABS: BUN - BLOOD UREA NITROGEN 8 mg/dL (6-20); CALCIUM 9.9 mg/dL (8.5-10.3); CARBON DIOXIDE - CO2 27 mmol/L (21-32); CHLORIDE 99 mmol/L (101-111); CREATININE 0.6 mg/dL (0.4-1.0); GFR - MDRD 100 (>89); GLUCOSE 106 mg/dL (70-100); SODIUM 135 mmol/L (135-145)
[2018-03-22 16:16] LABS: CRP - C-REACTIVE PROTEIN < 1.0 mg/dL (0-1.0)
[2018-03-22 16:39] LABS: BILIRUBIN,URINE NEGATIVE (NEGATIVE); GLUCOSE, URINE (UA) NEGATIVE (NEGATIVE); KETONES,URINE (UA) NEGATIVE (NEGATIVE); LEUKOCYTE ESTERASE, URINE NEGATIVE (NEGATIVE); NITRITE,URINE NEGATIVE (NEGATIVE); OCCULT BLOOD,URINE NEGATIVE (NEGATIVE); PH,URINE 7.5 PH (5.0-7.5); PROTEIN,URINE NEGATIVE (NEGATIVE); UROBILINOGEN,URINE 0.2 (NORMAL) E.U./dL (NORMAL)
[2018-03-22 16:43] LABS: CLARITY,URINE CLEAR (CLEAR)
--- NOTE | 2018-03-22 16:45 | Ultrasound Report ---
Procedure Date: 03/22/2018 Accession Number: [id number] / [id number] Procedure: US - Duplex Ext Veins Right CPT Code: FULL RESULT: EXAM: RIGHT LOWER EXTREMITY VENOUS ULTRASOUND EXAM DATE: 03/22/2018 04:30 PM. CLINICAL HISTORY: Right lower extremity pain and swelling. COMPARISON: None. TECHNIQUE: Real-time sonographic vascular imaging was performed by the nanotechnology engineering technologist through the lower extremity utilizing both color-flow and Doppler spectral analysis. Multiple solar sales representative static images were saved for review. FINDINGS: Common Femoral Vein (CFV): Normal. CFV-GSV Junction: Normal. Profunda Femoral Vein (PFV): Normal. Femoral Vein (FV) Prox: Normal. Femoral Vein (FV) Mid: Normal. Femoral Vein (FV) Dist: Normal. Popliteal Vein: Normal. Posterior Tibial Veins: Normal. Peroneal Veins: Normal. Contralateral Side CFV: Normal. Other: None. IMPRESSION: No evidence for deep venous thrombosis. [facility]
[2018-03-22 17:22] VITALS: BP 151/81
== END 2018-03-22 18:37 | disposition home or self-care (01) ==
LOC: ED 14:44
DX: M54.41 Lumbago with sciatica, right side (principal); M06.00 Rheumatoid arthritis without rheumatoid factor, unspecified site; M19.90 Unspecified osteoarthritis, unspecified site; I10 Essential (primary) hypertension; Z79.891 Long term (current) use of opiate analgesic
CPT/HCPCS: 36415; 80048; 81003; 85025; 85651; 86140; 93971; 96365; 99283; A9270; J0131; 81001; 87086

== ENCOUNTER 2018-03-25 14:33 | Outpatient (CLI) | payer MEDICARE, OTHER ==
--- NOTE | 2018-03-26 17:08 | MRI Report ---
Procedure Date: 03/25/2018 Accession Number: [id number] / [id number] Procedure: MRI - Lumbar Spine W/O CPT Code: FULL RESULT: EXAM: MRI LUMBAR SPINE WITHOUT CONTRAST. EXAM DATE: 03/25/2018 02:36 PM. CLINICAL HISTORY: Severe right-sided sciatica. No known injury. COMPARISON: MRI lumbar spine without contrast 02/07/2012. TECHNIQUE: Multiplanar, multisequence T1-weighted and fluid-sensitive sequences of the lumbar spine from T12 to S1 without contrast. Other: None. FINDINGS: Spinal Cord: The conus terminates at T12-L1. The conus medullaris and cauda equina are unremarkable. Alignment: Dextroconvex scoliosis centered at the L2-L3 level. Left lateral listhesis of L3 on L4 by approximately 4 mm. Grade 1 retrolisthesis at L2-L3 by approximately 2 mm. Bone Marrow: Five gdb-zfo-zuycljq lumbar vertebral bodies are assumed. No gross fractures or bone lesions. No bone marrow edema. Disk Levels/Facets: L5-S1: Right-sided degenerative endplate changes. Joeb-fn-dhwrvjmj right-sided and mild left-sided disk space narrowing. Minimal disk bulge. Moderate to severe facet arthropathy which has increased since the previous study. No canal stenosis. Mild foraminal stenoses. No change. L4-L5: Minimal disk bulge. Focal fissure at the left posterior lateral aspect of the disk annulus. Moderate to severe ligamentum flavum thickening and vxco-ud-aowpmadc facet arthropathy. Mild right foraminal stenosis. No canal stenosis. No change. L3-L4: There is a new posterior right paracentral disk extrusion which extends inferiorly into the upper L4 right lateral recess. The disk extrusion measures approximately 1.1 x 0.7 x 0.7 cm and causes probable impingement of the right L4 nerve. There is dvke-eg-yoefjayc right and mild left facet arthropathy. Small facet joint effusions. Mild canal stenosis. Hmfccyjn-zc-ctmsra right subarticular zone and upper L4 right lateral recess stenoses. Rojppbau-wv-wzfhtl right and mild left foraminal stenoses which is unchanged. L2-L3: Severe left-sided and severe anterior and kkqi-zm-wcwndxif right-sided disk space narrowing. Lbxuj-jj-ubbmyqyn sized left foraminal and extraforaminal disk bulge/osteophyte complex. Moderate left foraminal stenosis. Similar findings are seen on the previous study. L1-L2: Minimal disk bulge. Mild facet arthropathy. No stenoses. T12-L1: Tiny posterior central disk protrusion. Minimal caliber narrowing. No foraminal stenoses. No change. Musculature: Mild/moderate fatty atrophy of posterior paraspinal muscles. Other: The partially visualized retroperitoneum is unremarkable. IMPRESSION: 1. Kbav-al-vkdmwtif dextroconvex scoliosis centered at the L2-L3 level. Left lateral listhesis of L3 on L4 by approximately 4 mm. Grade 1 retrolisthesis at L2-L3. 2. Multilevel degenerative disk changes, osteophytosis, ligamentum flavum thickening, and facet arthropathy. Some of the more significant levels are at L3-L4 and L2-L3. 3. A new yoewi-vd-pfupfztx sized posterior right paracentral disk extrusion at L3-L4 which extends into the upper L4 right lateral recess. The disk extrusion causes impingement of the right L4 nerve. Mild canal stenosis. Gnmvsmsq-mq-fbanan right subarticular zone at upper L4 lateral recess stenoses. Rvegxvzs-pw-fowuxc right and mild left foraminal stenoses which is unchanged. 4. Oefse-yy-rauhcdea sized left foraminal and extraforaminal disk bulge/osteophyte complex at L2-L3. Moderate left foraminal stenosis. No significant change. 5. Worsening facet arthropathy at L5-S1. Mild L5-S1 foraminal stenoses. Comment: The following findings are so common in adults without low back pain that while we report their presence, they must be interpreted with caution and in the context of the clinical situation. (Reference Samanthak et al, Spine 2001) Prevalence of findings in patients without low back pain: Disk degeneration (any evidence): 92% Disk desiccation/T2 signal loss: 83% Disk height loss: 56% Disk bulge: 64% Disk protrusion: 32% Annular tear/high intensity zone: 38% RAD[facility]
== END 2018-03-25 14:34 | disposition home or self-care (01) ==
LOC: DI 14:33
PROVIDERS: ATTEND Family Medicine
DX: M51.16 Intervertebral disc disorders with radiculopathy, lumbar region (principal); M51.36 Other intervertebral disc degeneration, lumbar region; M47.896 Other spondylosis, lumbar region; M41.86 Other forms of scoliosis, lumbar region; M51.37 Other intervertebral disc degeneration, lumbosacral region; M47.897 Other spondylosis, lumbosacral region; M43.16 Spondylolisthesis, lumbar region
CPT/HCPCS: 72148

== ENCOUNTER 2018-04-24 09:57 | Outpatient (CLI) | payer MEDICARE, OTHER ==
--- NOTE | 2018-04-24 17:06 | MRI Report ---
Procedure Date: 04/24/2018 Accession Number: [id number] / [id number] Procedure: MRI - Knee RT W/O CPT Code: FULL RESULT: EXAM: RIGHT KNEE MRI WITHOUT CONTRAST EXAM DATE: 04/24/2018 10:59 AM. CLINICAL HISTORY: Instability and pain right knee. COMPARISON: Radiographs 04/17/2015. TECHNIQUE: Multiplanar, multisequence T1-weighted and fluid-sensitive sequences of the knee without contrast. Other: None. FINDINGS: Bones: Cvpe-lu-gwtfhwtt reactive edema and cystic changes at the posterolateral aspect lateral femoral condyle and to a lesser extent lateral tibial plateau. Contour deformity at the posterior margin lateral tibial plateau, suggestive of possible old impaction fracture. Minimal reactive edema at the medial aspect medial tibial plateau. Mild degenerative change at the proximal tibiofibular joint. Articular Cartilage: Shallow partial-thickness loss at the central aspect medial compartment. Large regions of full-thickness loss at the central to posterior aspects lateral compartment. Medial Meniscus: The medial meniscus is intact. Lateral Meniscus: Horizontal tear contacts the inferior articular surface anterior horn and body. Cruciate Ligaments: The anterior and posterior cruciate ligaments are intact. Collateral Ligaments: The medial collateral and lateral collateral ligamentous structures are intact. Tendons: The quadriceps, patellar, semimembranosus, and popliteus tendons are unremarkable. Musculature: No edema or fatty atrophy. Other: Small joint effusion. Moderate popliteal cyst with subtle leak proximally. No loose bodies. The medial and lateral retinacula are intact. Mild subcutaneous edema over the anterior aspect patellar tendon. Minimal reactive edema in the anterior fat pads. IMPRESSION: 1. Horizontal tear body and posterior horn lateral meniscus. 2. Tricompartmental cartilage loss, full-thickness/grade 4 at the lateral compartment. 3. Small joint effusion. [facility] MUSCULOSKELETAL RADIOLOGY SECTION
== END 2018-04-24 09:58 | disposition home or self-care (01) ==
LOC: DI 09:57
PROVIDERS: ATTEND Family Medicine
DX: S83.281A Other tear of lateral meniscus, current injury, right knee, initial encounter (principal); M23.91 Unspecified internal derangement of right knee; M25.461 Effusion, right knee

== ENCOUNTER 2018-04-29 15:45 | Outpatient (CLI) | payer MEDICARE, OTHER | END 2018-04-29 15:46 | disposition critical access hospital (66) | LOC: EMS 15:45 | PROVIDERS: ATTEND Surgery | DX: R42 Dizziness and giddiness (principal); M54.2 Cervicalgia; R51 Headache; W18.39XA Other fall on same level, initial encounter; Y92.510 Bank as the place of occurrence of the external cause | CPT/HCPCS: A0425; A0427 ==

== ENCOUNTER 2018-04-29 16:10 | Emergency (ER) | payer MEDICARE, OTHER ==
--- NOTE | 2018-04-29 17:05 | ED Physician Documentation ---
PD HPI SYNCOPE - Stated complaint Stated Complaint: GLF - Chief complaint Chief Complaint: General - History obtained from History obtained from: Patient - History of Present Illness Witnessed: Witnessed Timing - onset: Today (she was at the bank and says she felt lightheaded when went from hot outside to cool indoors and was standing there. Fell backward and struck head. possible brief LOC per bystanders. BP low initially. She says she had been feeling okay earlier in the day.) Preceding symptoms: Light headed. No: Headache, Chest pain, Palpitations, Abdominal pain Associated symptoms: Headache. No: Chest pain, Dyspnea, Nausea / vomiting, Abdominal pain Contributing factors: Other (standing few minutes in bank line). No: Recent med change, Noxious stimulae Injury occurred: Head injury Treatment CHEMICAL PLANT MANAGER: Fluids Similar symptoms before: Has not had sx before Recently seen: Not recently seen Review of Systems Constitutional: denies: Fever, Chills Nose: denies: Rhinorrhea / runny nose, Congestion Throat: denies: Sore throat Cardiac: denies: Chest pain / pressure Respiratory: denies: Dyspnea, Cough GI: denies: Abdominal Pain, Nausea, Vomiting, Diarrhea : reports: Frequency Skin: denies: Rash, Lesions Musculoskeletal: reports: Neck pain. denies: Back pain, Extremity pain Neurologic: reports: Headache. 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 HEENT: Tonsil/Adenoidectomy, Other - Present Medications Home Medications: Ambulatory Orders Medication Instructions Recorded Confirmed Albuterol Sulfate [Albuterol 2 puffs INH Q6HR PRN 03/23/15 01/07/18 Sulfate Hfa] Fluticasone [Flonase] 2 spr OPHELIA DAILY 03/23/15 01/07/18 Gabapentin 900 mg PO DAILY 03/23/15 01/07/18 Lisinopril 10 mg PO DAILY 03/23/15 01/07/18 Montelukast Sodium [Singulair] 10 mg PO DAILY 03/23/15 01/07/18 Omeprazole [PriLOSEC] 1 cap PO DAILY 03/23/15 01/07/18 oxyCODONE/ACET 5/325 [Percocet 5 1 tab PO TID 03/23/15 01/07/18 mg/325 mg] Ketoconazole 1 applic TP BID PRN 02/19/17 01/07/18 Cyclobenzaprine HCl 1 tab PO DAILY 01/07/18 01/07/18 Meloxicam 1 tab PO DAILY 01/07/18 01/07/18 Felodipine [Felodipine ER] 03/22/18 Lidocaine Patch 5% [Lidoderm Patch] 1 each TOP DAILY PRN #10 patch 03/22/18 Phenazopyridine [Pyridium] 200 mg PO TID PRN #15 tablet 04/29/18 Sulfamethox/Trimeth 800/160 1 each PO BID #14 tablet 04/29/18 [Bactrim Ds 800/160] - Allergies Allergies/Adverse Reactions: Allergies Allergy/AdvReac Type Severity Reaction Status Date / Time ibuprofen [From Motrin] AdvReac Headache Verified 04/29/18 16:22 - Social History Does the pt smoke?: No Smoking Status: Never smoker PD ED PE NORMAL - Vitals Vital signs reviewed: Yes - General General: Alert and oriented X 3, No acute distress, Well developed/nourished - HEENT HEENT: PERRL, EOMI, Ears normal, Pharynx benign, Other (small hematoma on back of head) - Neck Neck: Supple, no meningeal sign, No adenopathy, Other (mildly tender lower cervical area) - Cardiac Cardiac: RRR, No murmur - Respiratory Respiratory: Clear bilaterally - Abdomen Abdomen: Soft, Non tender - Back Back: No CVA TTP, No spinal TTP - Derm Derm: Normal color, Warm and dry - Extremities Extremities: No deformity, No tenderness to palpate, Normal ROM s pain, No edema , No calf tenderness / cord - Neuro Neuro: Alert and oriented X 3, registered nurses 2-12 intact, No motor deficit, No sensory deficit, Normal speech Eye Opening: Spontaneous Motor: Obeys Commands Verbal: Oriented GCS Score: 15 Results - Vitals Vitals: Vital Signs - 24 hr 04/29/18 04/29/18 16:19 20:28 Temperature 36.1 C L Heart Rate 77 80 Respiratory 18 18 Rate Blood Pressure 90/63 112/66 O2 Saturation 97 99 Oxygen O2 Source Room air - EKG (time done) 17:55 Rate: Rate (enter#) (72) Rhythm: NSR [place]: Normal Intervals: Normal [place] QRS: Normal Ischemia: Normal ST segments. No: ST elevation c/w ischemia, ST depression - Labs Labs: Microbiology 04/29/18 18:10 Urine Culture - Preliminary Urine,Clean Catch Laboratory Tests 04/29/18 04/29/18 04/29/18 17:47 17:47 17:47 WBC 7.9 RBC 3.96 L Hgb 12.2 Hct 36.1 L MCV 91.1 MCH 30.8 MCHC 33.8 RDW 12.9 Plt Count 227 MPV 6.6 L Neut # (Auto) 6.3 Lymph # (Auto) 0.9 L [place] # (Auto) 0.7 Eos # (Auto) 0.0 Baso # (Auto) 0.0 Absolute Nucleated RBC 0.00 Nucleated RBC % 0.0 Sodium 129 L Potassium 4.1 Chloride 96 L Carbon Dioxide 25 Anion Gap 8.0 BUN 16 Creatinine 0.8 Estimated GFR (MDRD) 72 L Glucose 116 H Calcium 9.2 Magnesium 2.2 Total Bilirubin 0.4 AST 15 ALT 12 Alkaline Phosphatase 94 Troponin I Total Protein 6.6 L Albumin 3.9 Globulin 2.7 Albumin/Globulin Ratio 1.4 Lipase 42 TSH 0.79 Urine Color Urine Clarity Urine pH Ur Specific [place] Urine Protein Urine Glucose (UA) Urine Ketones Urine Occult Blood Urine Nitrite Urine Bilirubin Urine Urobilinogen Ur Leukocyte Esterase Urine RBC Urine WBC Urine WBC Clumps Ur Squamous Epith Cells Urine Bacteria Ur Microscopic Review Urine Culture Comments 04/29/18 04/29/18 17:47 18:10 WBC RBC Hgb Hct MCV MCH MCHC RDW Plt Count MPV Neut # (Auto) Lymph # (Auto) [place] # (Auto) Eos # (Auto) Baso # (Auto) Absolute Nucleated RBC Nucleated RBC % Sodium Potassium Chloride Carbon Dioxide Anion Gap BUN Creatinine Estimated GFR (MDRD) Glucose Calcium Magnesium Total Bilirubin AST ALT Alkaline Phosphatase Troponin I < 0.04 Total Protein Albumin Globulin Albumin/Globulin Ratio Lipase TSH Urine Color YELLOW Urine Clarity SL. CLOUDY Urine pH 6.0 Ur Specific [place] <=1.005 Urine Protein NEGATIVE Urine Glucose (UA) NEGATIVE Urine Ketones TRACE Urine Occult Blood SMALL H Urine Nitrite NEGATIVE Urine Bilirubin NEGATIVE Urine Urobilinogen 0.2 (NORMAL) Ur Leukocyte Esterase MODERATE H Urine RBC 11-25 H Urine WBC >25 H Urine WBC Clumps PRESENT Ur Squamous Epith Cells FEW Squamous Urine Bacteria Many H Ur Microscopic Review INDICATED Urine Culture Comments INDICATED - Rads (name of study) head and neck CT Radiology: Prelim report reviewed (no acute findings) PD MEDICAL DECISION MAKING - ED course Complexity details: re-evaluated patient (BP improved with some fluids. Has UTI but does not seem septic. Prefers to go home. ), considered differential, d/w patient - Sepsis Event Vital Signs: Vital Signs - 24 hr 04/29/18 04/29/18 16:19 20:28 Temperature 36.1 C L Heart Rate 77 80 Respiratory 18 18 Rate Blood Pressure 90/63 112/66 O2 Saturation 97 99 Oxygen O2 Source Room air Departure - Departure Disposition: 01 Home, Self Care Clinical Impression: Lightheadedness, Near syncope Head contusion Qualifiers: Encounter type: initial encounter Contusion of head detail: scalp Qualified Code(s): S00.03XA - Contusion of scalp, initial encounter UTI (urinary tract infection) Qualifiers: Urinary tract infection type: acute cystitis Hematuria presence: without hematuria Qualified Code(s): N30.00 - Acute cystitis without hematuria Condition: Stable Record reviewed to determine appropriate education?: Yes Instructions: ED Head Injury Closed, ED UTI Cystitis Female Prescriptions: Phenazopyridine [Pyridium] 200 mg PO TID PRN #15 tablet PRN Reason: Pain Sulfamethox/Trimeth 800/160 [Bactrim Ds 800/160] 1 each PO BID #14 tablet Comments: Tylenol or naproxen if needed for headache or pains from the injury. Your head scan appears normal without any signs of bleeding or skull fracture. I think he felt lightheaded and faint due to her transient drop in blood pressure. Your blood pressure and vital signs appear normal here now. Your discomfort urinating is from a bladder infection and take Bactrim antibiotic twice daily for a week and he can use phenazopyridine to help with the discomfort of urination. Recheck if not improved over the next few days. Discharge Date/Time: 04/29/18 20:42
[2018-04-29] MEDS ORDERED: SODIUM CHLORIDE 0.9% 1,000 ML IV ONE (17:32)
[2018-04-29 17:54] LABS: BASOPHILS % (AUTO) 0.3 %; EOSINOPHILS % (AUTO) 0.1 %; HGB - HEMOGLOBIN 12.2 g/dL (12.0-16.0); LYMPHOCYTES # (AUTO) 0.9 10^3/uL (1.5-3.5); MEAN CORPUSCULAR HEMOGLOBIN 30.8 pg (27.0-31.0); MEAN CORPUSCULAR HGB CONC 33.8 g/dL (32.0-36.0); MEAN CORPUSCULAR VOLUME 91.1 fL (81.0-99.0); MEAN PLATELET VOLUME 6.6 fL (7.9-10.8); MONOCYTES # (AUTO) 0.7 10^3/uL (0.0-1.0); MONOCYTES % (AUTO) 8.3 %; NEUTROPHILS # (AUTO) 6.3 10^3/uL (1.5-6.6); NEUTROPHILS % (AUTO) 80.3 %; PLT - PLATELET COUNT 227 10^3/uL (130-450); RED BLOOD COUNT 3.96 10^6/uL (4.20-5.40); RED CELL DISTRIBUTION WIDTH 12.9 % (12.0-15.0); WHITE BLOOD COUNT 7.9 x10^3/uL (4.8-10.8)
[2018-04-29 18:14] LABS: ALBUMIN 3.9 g/dL (3.2-5.5); ALBUMIN/GLOBULIN RATIO 1.4 (1.0-2.2); BILIRUBIN,TOTAL 0.4 mg/dL (0.2-1.0); CALCIUM 9.2 mg/dL (8.5-10.3); CREATININE 0.8 mg/dL (0.4-1.0); MAGNESIUM 2.2 mg/dL (1.7-2.8); TOTAL PROTEIN 6.6 g/dL (6.7-8.2)
[2018-04-29 18:28] LABS: BILIRUBIN,URINE NEGATIVE (NEGATIVE); GLUCOSE, URINE (UA) NEGATIVE (NEGATIVE); KETONES,URINE (UA) TRACE mg/dL (NEGATIVE); LEUKOCYTE ESTERASE, URINE MODERATE (NEGATIVE); NITRITE,URINE NEGATIVE (NEGATIVE); OCCULT BLOOD,URINE SMALL (NEGATIVE); PROTEIN,URINE NEGATIVE (NEGATIVE); UROBILINOGEN,URINE 0.2 (NORMAL) E.U./dL (NORMAL)
[2018-04-29 18:34] LABS: CLARITY,URINE SL. CLOUDY (CLEAR)
[2018-04-29 19:02] LABS: SQUAMOUS EPITHELIAL CELL,UR FEW Squamous (<= Few); WBC CLUMPS,URINE PRESENT
[2018-04-29 19:03] LABS: BACTERIA,URINE Many /HPF (None Seen)
--- NOTE | 2018-04-29 19:29 | CT Report ---
Procedure Date: 04/29/2018 Accession Number: [id number] / [id number] Procedure: CT - Head W/O CPT Code: FULL RESULT: EXAM: CT HEAD EXAM DATE: 04/29/2018 06:54 PM. CLINICAL HISTORY: Syncope. Hit head. COMPARISON: None. TECHNIQUE: Multiaxial CT images were obtained from the foramen magnum to the vertex. Reformats: Sagittal and coronal. IV contrast: None. In accordance with CT protocol optimization, one or more of the following dose reduction techniques were utilized for this exam: automated exposure control, adjustment of mA and/or KV based on patient size, or use of iterative reconstructive technique. FINDINGS: Parenchyma: No intraparenchymal hemorrhage. No evidence of mass, midline shift, or CT findings of infarction. Hawkins-white differentiation is distinct. Extraaxial Spaces: Normal for age. No subdural or epidural collections identified. Ventricles: Normal in size and position. Sinuses and Orbits: Imaged paranasal sinuses, orbits, and mastoids show no significant abnormality. Bones: No evidence of fracture or calvarial defect. Other: None. IMPRESSION: Normal head CT. RADIA
[2018-04-29] MEDS ORDERED: SULFAMETH/TRIMETH DS 800/160 MG TABLET PO STA (19:47)
[2018-04-29] MEDS ORDERED: PHENAZOPYRIDINE 100 MG TABLET PO STA (19:48)
--- NOTE | 2018-04-29 19:53 | CT Report ---
Procedure Date: 04/29/2018 Accession Number: [id number] / [id number] Procedure: CT - Cervical Spine W/O CPT Code: FULL RESULT: EXAM: CT CERVICAL SPINE WITHOUT CONTRAST. DATE: 04/29/2018 07:13 PM. HISTORY: Syncope, hit head; head/neck pain. COMPARISONS: CT head without contrast 04/29/2018. MR cervical spine 08/09/2017. TECHNIQUE: Thin-section axial images were acquired of the cervical spine without contrast. Post-processing: Coronal and sagittal reformats. Other: None. In accordance with CT protocol optimization, one or more of the following dose reduction techniques were utilized for this exam: automated exposure control, adjustment of mA and/or KV based on patient size, or use of iterative reconstructive technique. FINDINGS: Alignment: No scoliosis or spondylolisthesis. Bones: No fracture or bone lesion. Interspace Levels/Facets: Similar mild disk height loss at C4-C5 and moderate disk height loss at C5-C6. Partial fusion of the bilateral facets at C2-C3. Otherwise minimal to mild multilevel degenerative facet disease. No evidence of moderate or severe canal stenosis at any level. Moderate to severe bilateral neural foraminal stenosis at C5-C6 due to uncovertebral spurring as before. Musculature: Normal. No fatty atrophy. Other: The paravertebral and prevertebral soft tissues are unremarkable. The lung apices are clear. IMPRESSION: No acute osseous abnormality or malalignment of the cervical spine with degenerative changes from C4-C6, similar to prior MRI. RADIA
[2018-04-29 20:28] VITALS: BP 112/66
== END 2018-04-29 20:42 | disposition home or self-care (01) ==
LOC: EDUNIT# → ED 16:10
DX: S00.03XA Contusion of scalp, initial encounter (principal); N30.00 Acute cystitis without hematuria; R42 Dizziness and giddiness; R55 Syncope and collapse; I10 Essential (primary) hypertension; W18.30XA Fall on same level, unspecified, initial encounter; W22.8XXA Striking against or struck by other objects, initial encounter; Y92.510 Bank as the place of occurrence of the external cause
CPT/HCPCS: 36415; 70450; 72125; 80053; 81001; 83690; 83735; 84443; 84484; 85025; 87077; 87086; 87181; 93005; 99283; A9270; 81003

== ENCOUNTER 2018-08-11 17:36 | Outpatient (CLI) | payer MEDICARE, OTHER | END 2018-08-11 17:37 | disposition critical access hospital (66) | LOC: EMS 17:36 | PROVIDERS: ATTEND Surgery | DX: R45.851 Suicidal ideations (principal) | CPT/HCPCS: A0425; A0429 ==

== ENCOUNTER 2018-08-11 18:05 | Emergency (ER) | payer MEDICARE, OTHER ==
--- NOTE | 2018-08-11 18:26 | ED Physician Documentation ---
PD HPI MHE - Stated complaint Stated Complaint: SI - Chief complaint Chief Complaint: MHE - History obtained from History obtained from: Patient, EMS - History of Present Illness Primary symptom: Suicidal ideation Timing - onset: How many hours ago (1) Pain level max: 0 Pain level now: 0 - Additional information Additional information: Patient is a 67-year-old female who told her family that she was going to kill herself tonight by eating papaya which she has a reported allergy to. She has no evidence of anaphylaxis on scene or here. She is not answering questions willingly. Review of Systems Unable to obtain: Uncooperative PD PAST MEDICAL HISTORY - Past Medical History Cardiovascular: Hypertension Respiratory: Asthma, COPD Endocrine/Autoimmune: None GI: Colon polyps, Other : None HEENT: Other Psych: None Musculoskeletal: Osteoarthritis, Rheumatoid arthritis, Gout, Chronic back pain Derm: None - Past Surgical History Past Surgical History: Yes Ortho: Other /[employer]: Hysterectomy HEENT: Tonsil/Adenoidectomy, Other - Present Medications Home Medications: Ambulatory Orders Medication Instructions Recorded Confirmed Albuterol Sulfate [Albuterol 2 puffs INH Q6HR PRN 03/23/15 01/07/18 Sulfate Hfa] Fluticasone [Flonase] 2 spr OPHELIA DAILY 03/23/15 01/07/18 Gabapentin 900 mg PO DAILY 03/23/15 01/07/18 Lisinopril 10 mg PO DAILY 03/23/15 01/07/18 Montelukast Sodium [Singulair] 10 mg PO DAILY 03/23/15 01/07/18 Omeprazole [PriLOSEC] 1 cap PO DAILY 03/23/15 01/07/18 oxyCODONE/ACET 5/325 [Percocet 5 1 tab PO TID 03/23/15 01/07/18 mg/325 mg] Ketoconazole 1 applic TP BID PRN 02/19/17 01/07/18 Cyclobenzaprine HCl 1 tab PO DAILY 01/07/18 01/07/18 Meloxicam 1 tab PO DAILY 01/07/18 01/07/18 Felodipine [Felodipine ER] 03/22/18 Lidocaine Patch 5% [Lidoderm Patch] 1 each TOP DAILY PRN #10 patch 03/22/18 Phenazopyridine [Pyridium] 200 mg PO TID PRN #15 tablet 04/29/18 Sulfamethox/Trimeth 800/160 1 each PO BID #14 tablet 04/29/18 [Bactrim Ds 800/160] - Allergies Allergies/Adverse Reactions: Allergies Allergy/AdvReac Type Severity Reaction Status Date / Time ibuprofen [From Motrin] AdvReac Headache Verified 04/29/18 16:22 - Social History Does the pt smoke?: No Smoking Status: Never smoker PD ED PE NORMAL - Vitals Vital signs reviewed: Yes - General General: No acute distress, Other (Flat affect, disheveled) - HEENT HEENT: PERRL, Moist mucous membranes - Neck Neck: Supple, no meningeal sign - Cardiac Cardiac: RRR - Respiratory Respiratory: No respiratory distress, Clear bilaterally - Abdomen Abdomen: Soft, Non tender, Non distended - Back Back: No spinal TTP - Derm Derm: Warm and dry - Extremities Extremities: No deformity - Neuro Neuro: Other (Alert) - Psych Psych: Other (Flat) Results - Vitals Vitals: Vital Signs - 24 hr 08/11/18 18:06 Temperature 36.6 C Heart Rate 84 Respiratory 16 Rate Blood Pressure 137/83 H O2 Saturation 98 Oxygen O2 Source Room air - EKG (time done) 1839 Rate: Rate (enter#) (82) Rhythm: NSR [place]: Normal Intervals: Normal GA QRS: Normal Ischemia: Normal ST segments - Labs Labs: Laboratory Tests 08/11/18 08/11/18 08/11/18 18:24 18:24 18:24 WBC 7.2 RBC 4.32 Hgb 12.9 Hct 38.9 MCV 90.0 MCH 29.9 MCHC 33.2 RDW 14.7 Plt Count 269 MPV 7.4 L Neut # (Auto) 4.9 Lymph # (Auto) 1.7 [place] # (Auto) 0.5 Eos # (Auto) 0.0 Baso # (Auto) 0.0 Absolute Nucleated RBC 0.00 Nucleated RBC % 0.0 Sodium 136 Potassium 3.8 Chloride 102 Carbon Dioxide 25 Anion Gap 9.0 BUN 11 Creatinine 0.8 Estimated GFR (MDRD) 72 L Glucose 165 H Calcium 9.6 Total Bilirubin 0.5 AST 26 ALT 17 Alkaline Phosphatase 112 Total Protein 7.2 Albumin 4.4 Globulin 2.8 Albumin/Globulin Ratio 1.6 Lipase 35 TSH 0.98 Urine Color Urine Clarity Urine pH Ur Specific [place] Urine Protein Urine Glucose (UA) Urine Ketones Urine Occult Blood Urine Nitrite Urine Bilirubin Urine Urobilinogen Ur Leukocyte Esterase Ur Microscopic Review Urine Culture Comments Salicylates < 6.0 Urine Opiates Screen Ur Oxycodone Screen Urine Methadone Screen Ur Propoxyphene Screen Acetaminophen < 10 L Ur Barbiturates Screen Ur Tricyclics Screen Ur Phencyclidine Scrn Ur Amphetamine Screen U Methamphetamines Scrn U Benzodiazepines Scrn Urine Cocaine Screen U Cannabinoids Screen Ethyl Alcohol < 5.0 08/11/18 18:58 WBC RBC Hgb Hct MCV MCH MCHC RDW Plt Count MPV Neut # (Auto) Lymph # (Auto) [place] # (Auto) Eos # (Auto) Baso # (Auto) Absolute Nucleated RBC Nucleated RBC % Sodium Potassium Chloride Carbon Dioxide Anion Gap BUN Creatinine Estimated GFR (MDRD) Glucose Calcium Total Bilirubin AST ALT Alkaline Phosphatase Total Protein Albumin Globulin Albumin/Globulin Ratio Lipase TSH Urine Color YELLOW Urine Clarity CLEAR Urine pH 7.0 Ur Specific [place] <=1.005 Urine Protein NEGATIVE Urine Glucose (UA) NEGATIVE Urine Ketones NEGATIVE Urine Occult Blood NEGATIVE Urine Nitrite NEGATIVE Urine Bilirubin NEGATIVE Urine Urobilinogen 0.2 (NORMAL) Ur Leukocyte Esterase NEGATIVE Ur Microscopic Review NOT INDICATED Urine Culture Comments NOT INDICATED Salicylates Urine Opiates Screen NEGATIVE Ur Oxycodone Screen NEGATIVE Urine Methadone Screen NEGATIVE Ur Propoxyphene Screen NEGATIVE Acetaminophen Ur Barbiturates Screen NEGATIVE Ur Tricyclics Screen NEGATIVE Ur Phencyclidine Scrn NEGATIVE Ur Amphetamine Screen NEGATIVE U Methamphetamines Scrn NEGATIVE U Benzodiazepines Scrn NEGATIVE Urine Cocaine Screen NEGATIVE U Cannabinoids Screen NEGATIVE Ethyl Alcohol PD MEDICAL DECISION MAKING - ED course Complexity details: reviewed results, considered differential, 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 She reportedly stated that she is allergic to papayas. No evidence of allergic reaction here. No focal neurological deficits. She is uncooperative with the exam. Patient is medically clear for psychiatric care. Patient will be signed out to the oncoming emergency department physician awaiting disposition from the [facility]. This document was made in part using voice recognition software. While efforts are made to proofread this document, sound alike and grammatical errors may occur. No anaphylaxis or allergic reaction present Departure - Departure Clinical Impression: Suicidal behavior Qualifiers: Attempted self-injury: with attempted self-injury Qualified Code(s): T14.91XA - Suicide attempt, initial encounter Condition: Stable
[2018-08-11 18:31] LABS: BASOPHILS % (AUTO) 0.5 %; EOSINOPHILS % (AUTO) 0.5 %; HGB - HEMOGLOBIN 12.9 g/dL (12.0-16.0); LYMPHOCYTES # (AUTO) 1.7 10^3/uL (1.5-3.5); LYMPHOCYTES % (AUTO) 23.5 %; MEAN CORPUSCULAR HEMOGLOBIN 29.9 pg (27.0-31.0); MEAN CORPUSCULAR HGB CONC 33.2 g/dL (32.0-36.0); MEAN PLATELET VOLUME 7.4 fL (7.9-10.8); MONOCYTES # (AUTO) 0.5 10^3/uL (0.0-1.0); NEUTROPHILS # (AUTO) 4.9 10^3/uL (1.5-6.6); NEUTROPHILS % (AUTO) 68.5 %; PLT - PLATELET COUNT 269 10^3/uL (130-450); RED BLOOD COUNT 4.32 10^6/uL (4.20-5.40); RED CELL DISTRIBUTION WIDTH 14.7 % (12.0-15.0); WHITE BLOOD COUNT 7.2 x10^3/uL (4.8-10.8)
[2018-08-11 18:57] LABS: ACETAMINOPHEN < 10 ug/mL (10-30); ALBUMIN 4.4 g/dL (3.2-5.5); ALBUMIN/GLOBULIN RATIO 1.6 (1.0-2.2); ALKALINE PHOSPHATASE 112 IU/L (42-121); ALT ALANINE AMINOTRANSFERASE 17 IU/L (10-60); AST ASPARTATE AMINOTRANSFERASE 26 IU/L (10-42); BILIRUBIN,TOTAL 0.5 mg/dL (0.2-1.0); BUN - BLOOD UREA NITROGEN 11 mg/dL (6-20); CALCIUM 9.6 mg/dL (8.5-10.3); CARBON DIOXIDE - CO2 25 mmol/L (21-32); CHLORIDE 102 mmol/L (101-111); CREATININE 0.8 mg/dL (0.4-1.0); GFR - MDRD 72 (>89); GLUCOSE 165 mg/dL (70-100); LIPASE 35 U/L (22-51); SALICYLATE < 6.0 mg/dL; SODIUM 136 mmol/L (135-145); TOTAL PROTEIN 7.2 g/dL (6.7-8.2)
[2018-08-11 18:59] LABS: MUDS CUTOFF CONCENTRATIONS CUTOFF CONC BELOW:
[2018-08-11 19:02] LABS: BILIRUBIN,URINE NEGATIVE (NEGATIVE); GLUCOSE, URINE (UA) NEGATIVE (NEGATIVE); KETONES,URINE (UA) NEGATIVE (NEGATIVE); LEUKOCYTE ESTERASE, URINE NEGATIVE (NEGATIVE); NITRITE,URINE NEGATIVE (NEGATIVE); OCCULT BLOOD,URINE NEGATIVE (NEGATIVE); PROTEIN,URINE NEGATIVE (NEGATIVE); UROBILINOGEN,URINE 0.2 (NORMAL) E.U./dL (NORMAL)
[2018-08-11 19:07] LABS: CLARITY,URINE CLEAR (CLEAR)
[2018-08-11 19:14] LABS: AMPHETAMINE SCREEN,URINE NEGATIVE (NEGATIVE); BENZODIAZEPINES SCREEN, URINE NEGATIVE (NEGATIVE); COCAINE SCREEN URINE NEGATIVE (NEGATIVE); METHADONE SCREEN, URINE NEGATIVE (NEGATIVE); METHAMPHETAMINES SCREEN, URINE NEGATIVE (NEGATIVE); OPIATE SCREEN, URINE NEGATIVE (NEGATIVE); OXYCODONE SCREEN, URINE NEGATIVE (NEGATIVE); PROPOXYPHENE SCREEN, URINE NEGATIVE (NEGATIVE); TRICYCLIC ANTIDEPRESSANT,URINE NEGATIVE (NEGATIVE)
[2018-08-12] MEDS ORDERED: diphenhydrAMINE 25 MG CAPSULE PO STA (00:02)
--- NOTE | 2018-08-12 06:02 | ED Physician Documentation ---
ED Addendum - Addendum Addendum: 08/12/18 07:00 AM The patient's care was turned over to By the off going emergency physician who medically cleared the patient. The patient is currently pending evaluation by the [facility]. The [facility] came and evaluated the patient, they have determined that the patient is not obtainable but have recommended that the patient not be discharged home until social work sees and evaluates the patient. The patient does not want to be placed in a behavioral health facility, [facility] would like for social work to arrange close follow-up for the patient before being discharged home. The patient has been stable throughout the evening. The patient's care will be turned over to the oncoming emergency physician Dr. Jarrett for final disposition
[2018-08-12 15:59] VITALS: BP 130/84
== END 2018-08-12 11:03 | disposition home or self-care (01) ==
LOC: EDUNIT# → ED 18:05
DX: T14.91XA Suicide attempt, initial encounter (principal); X83.8XXA Intentional self-harm by other specified means, initial encounter; I10 Essential (primary) hypertension; J44.9 Chronic obstructive pulmonary disease, unspecified; M19.90 Unspecified osteoarthritis, unspecified site; M06.9 Rheumatoid arthritis, unspecified; M10.9 Gout, unspecified; G89.29 Other chronic pain; M54.9 Dorsalgia, unspecified; Z79.51 Long term (current) use of inhaled steroids; Z79.891 Long term (current) use of opiate analgesic; Z79.2 Long term (current) use of antibiotics
CPT/HCPCS: 36415; 80053; 81003; 83690; 84443; 85025; 93005; 99283; 99284; A9270; 80306; 80307; 80320; 80329; 81001; 87086

== ENCOUNTER 2019-06-01 13:08 | Outpatient (CLI) | payer MEDICARE, OTHER ==
--- NOTE | 2019-06-02 15:32 | XRAY Report ---
Reason: DYSPHAGIA, CHRONIC LARYNGITIS Procedure Date: 06/01/2019 Accession Number: [id number] / [id number] Procedure: FL - Modified Barium Swallow W/SP CPT Code: FULL RESULT: EXAM: MODIFIED BARIUM SWALLOW EXAM DATE: 06/01/2019 02:26 PM. CLINICAL HISTORY: Dysphagia, chronic laryngitis. COMPARISON: None. TECHNIQUE: Under the direction of speech pathology, patient swallowed various consistencies of barium under lateral fluoroscopic observation of the neck. Fluoroscopy Time: 37 seconds. Number of Images: 45. FINDINGS: Swallowing Mechanism: Normal oral phase and swallowing reflex. Airway Protection: Normal epiglottic motion. No episodes of tracheal penetration or aspiration with all consistencies of barium. Pharynx: Normal. No significant vallecular or piriform sinus contrast pooling. Other: None. IMPRESSION: No aspiration is visualized. RADIA
== END 2019-06-01 13:09 | disposition home or self-care (01) ==
LOC: DI 13:08
PROVIDERS: ATTEND Otolaryngology
DX: R13.19 Other dysphagia (principal); J37.0 Chronic laryngitis
CPT/HCPCS: 74230

== ENCOUNTER 2019-06-25 13:24 | Outpatient (CLI) | payer MEDICARE, OTHER ==
[2019-06-25] MEDS ORDERED: IOVERSOL 320 50 ML VIAL ONE (13:55)
[2019-06-25] MEDS ORDERED: IOVERSOL 320 100 ML VIAL IVP ONE ×2 (13:55→15:36)
[2019-06-25] MEDS ORDERED: IOVERSOL 320 50 ML VIAL PO ONE (15:36)
--- NOTE | 2019-06-27 00:04 | CT Report ---
Reason: RIGHT LOWER QUADRANT PAIN, ABDOMINAL PAIN Procedure Date: 06/25/2019 Accession Number: [id number] / [id number] Procedure: CT - Abdomen/Pelvis W CPT Code: FULL RESULT: EXAM: CT ABDOMEN AND PELVIS EXAM DATE: 06/25/2019 03:21 PM. CLINICAL HISTORY: RIGHT LOWER QUADRANT PAIN, ABDOMINAL PAIN. COMPARISONS: ABDOMEN/PELVIS W/ 03/10/2018 6:14 PM. TECHNIQUE: Routine helical CT imaging was performed through the abdomen and pelvis. IV contrast: OPTI 320 90ML. Enteric contrast: Yes. Reconstructions: Coronal and sagittal. In accordance with CT protocol optimization, one or more of the following dose reduction techniques were utilized for this exam: automated exposure control, adjustment of mA and/or KV based on patient size, or use of iterative reconstructive technique. FINDINGS: Lung Bases: Unremarkable. Liver: Normal. No masses. Gallbladder/Bile Ducts: Unremarkable. Spleen: Normal. Pancreas: Normal. Adrenal Glands: Normal. Kidneys: Kidneys are normally positioned and excreting contrast. There is a cyst along the peripheral aspect of the left kidney. This measures 19 mm in diameter. There is no hydronephrosis. Peritoneal Cavity/Bowel: Normal. No free fluid, free air or adenopathy. No masses or acute inflammatory process. There is a large amount of stool throughout the colon. There are no inflammatory changes. There is no evidence for appendicitis. Pelvic Organs: The uterus has been resected. There are no bladder calculi. Vasculature: There are atherosclerotic vascular calcifications of the aortoiliac vessels. Bones: There is thoracolumbar scoliosis. There are degenerative changes at the L2-L3 disk level. Other: None. IMPRESSION: 1. No definite findings to explain clinical symptoms. 2. Large amount of stool burden throughout the colon. 3. Degenerative changes at the L2-L3 disk level. Thoracolumbar scoliosis. RADIA
== END 2019-06-25 13:25 | disposition home or self-care (01) ==
LOC: DI 13:24
PROVIDERS: ATTEND Family Medicine
DX: R10.31 Right lower quadrant pain (principal); M51.36 Other intervertebral disc degeneration, lumbar region; M41.9 Scoliosis, unspecified
CPT/HCPCS: 74177; Q9967

== ENCOUNTER 2020-04-11 12:53 | Outpatient (CLI) | payer MEDICARE, OTHER | END 2020-04-11 12:54 | disposition home or self-care (01) | LOC: DI 12:53 | PROVIDERS: ATTEND Family Medicine | DX: R60.0 Localized edema (principal); I27.20 Pulmonary hypertension, unspecified; I08.0 Rheumatic disorders of both mitral and aortic valves | CPT/HCPCS: 93306 ==

== ENCOUNTER 2020-04-24 13:40 | Outpatient (CLI) | payer MEDICARE, OTHER ==
--- NOTE | 2020-04-24 14:59 | XRAY Report ---
PROCEDURE: Chest 2 View X-Ray INDICATIONS: peripheral edema TECHNIQUE: 2 view(s) of the chest. COMPARISON: Chest X-ray views, 06/03/[address] chest without contrast, 07/16/2017. FINDINGS: Surgical changes and devices: None. Lungs and pleura: No pleural effusions or pneumothorax. Lungs are clear. Mediastinum: Mediastinal contours are normal. Heart size is normal. Bones and chest wall: No suspicious bony abnormalities. Soft tissues appear unremarkable. IMPRESSION: No acute cardiopulmonary disease. Reviewed by: Luisito Gomez MD on 04/24/2020 2:58 PM PDT Approved by: Luisito Gomez MD on 04/24/2020 2:58 PM PDT Station ID: [id number]
== END 2020-04-24 23:59 | disposition home or self-care (01) ==
LOC: DI.N 13:40
PROVIDERS: ATTEND Family Medicine
DX: R60.0 Localized edema (principal)
CPT/HCPCS: 71046

== ENCOUNTER 2020-12-04 12:38 | Outpatient (CLI) | payer MEDICARE, OTHER ==
--- NOTE | 2020-12-06 12:38 | Ultrasound Report ---
PROCEDURE: Duplex Lwr Ext Arterial RT INDICATIONS: RLE PVD TECHNIQUE: Color and pulse Doppler interrogation was performed of the right lower extremity arterial system, wit h image documentation. COMPARISON: None FINDINGS: Common femoral artery: 110 cm/sec, with triphasic flow. Deep femoral artery: 201 cm/sec, with monophasic flow. Proximal superficial femoral artery: 120 cm/sec, with triphasic flow. Mid superficial femoral artery: 112 cm/sec, with triphasic flow. Distal superficial femoral artery: 162 cm/sec, with triphasic 83 flow. Popliteal artery: 83 cm/sec, with triphasic flow. Posterior tibial artery: 111 cm/sec, with triphasic flow. Anterior tibial artery/dorsalis pedis: 101/87 cm/sec, with triphasic/monophasic flow. Hawkins-scale imaging description: Moderate calcified and soft plaque, scattered within the lower extre mity arterial vasculature. IMPRESSION: Focal elevation of arterial flow velocity within the profunda femoral artery proximally, indicating g reater than 50% stenosis. However, the superficial femoral artery through its proximal, mid and dista l aspect shows excellent flow, triphasic, with normal flow velocity. Mild atherosclerotic narrowing o f the distal anterior tibial artery/dorsalis pedis artery with mildly reduced phasicity of flow exten ding across the ankle into the foot. Reviewed by: Abdirahman Forbes MD on 12/06/2020 12:36 PM PST Approved by: Abdirahman Forbes MD on 12/06/2020 12:36 PM PST Station ID: [id number]
== END 2020-12-04 12:39 | disposition home or self-care (01) ==
LOC: DI 12:38
PROVIDERS: ATTEND Family Medicine
DX: I73.9 Peripheral vascular disease, unspecified (principal)

== ENCOUNTER 2021-01-18 15:39 | Outpatient (CLI) | payer MEDICARE, OTHER ==
--- NOTE | 2021-01-18 17:06 | XRAY Report ---
PROCEDURE: Elbow 3 View LT INDICATIONS: LEFT ELBOW CONTUSION TECHNIQUE: 3 views of the elbow were acquired. COMPARISON: None. FINDINGS: No fracture. Scattered subchondral sclerosis and spurring. Chronic corticated ossicle seen adjacent to the lateral epicondyle raising possibility of chronic common extensor origin tendinopathy Soft tissues: No elbow joint effusion. No suspicious soft tissue calcifications. IMPRESSION: No acute fracture. Left elbow joint degenerative changes as above. If the patient's pain or other symptoms persist, cons ider further evaluation with MRI. Reviewed by: Rizwan Hunt MD on 01/18/2021 5:05 PM PDT Approved by: Rizwan Hunt MD on 01/18/2021 5:05 PM PDT Station ID: [id number]
== END 2021-01-18 15:40 | disposition home or self-care (01) ==
LOC: DI.N 15:39
PROVIDERS: ATTEND Family Medicine
DX: M85.88 Other specified disorders of bone density and structure, other site (principal); M77.8 Other enthesopathies, not elsewhere classified

== ENCOUNTER 2021-03-28 13:28 | Outpatient (CLI) | payer MEDICARE, OTHER ==
--- NOTE | 2021-03-28 16:47 | MRI Report ---
PROCEDURE: Elbow LT W/O INDICATIONS: CONTUSION OF LEFT ELBOW TECHNIQUE: Noncontrast coronal proton density fast spin echo and T2 fast spin echo with fat saturation, axial an d sagittal T1 spin echo and T2 fast spin echo with fat saturation through the elbow. COMPARISON: Elbow radiograph dated 01/18/2021. FINDINGS: Image quality: Excellent. Lateral structures: The lateral ulnar collateral ligament and radial collateral ligament both appear intact. The overlying common extensor tendon also appears normal. Medial structures: The ulnar collateral ligament appears intact. The overlying common flexor tendon appears mildly thickened with heterogeneous T2 hyperintense signal.. The ulnar nerve appears normal in size and signal within the cubital tunnel. Anterior structures: Distal biceps tendinosis at its proximal radial insertion is seen with small frank unt of surrounding soft tissue edema and fluid. The brachialis tendon is intact. The median and radia l neurovascular bundles appear normal; no focal muscle atrophy to suggest nerve impingement. Posterior structures: The triceps tendon appears intact. No olecranon bursal fluid. Bone and cartilage: No bone marrow contusions or fractures. No osteochondral injuries. IMPRESSION: 1. No marrow edema. No fracture or dislocation. Small amount of joint fluid, no gross loose body. 2. Tendinosis and low-grade partial-thickness tear involving distal biceps tendon at its proximal rad ial insertion. No full-thickness biceps tendon rupture. Distal brachialis tendon is intact. 3. Mild tendinosis involving common flexor tendon origin. Reviewed by: Ryan Dodson MD on 03/28/2021 4:46 PM PDT Approved by: Ryan Dodson MD on 03/28/2021 4:46 PM PDT Station ID: [id number]
== END 2021-03-28 13:29 | disposition home or self-care (01) ==
LOC: DI 13:28
PROVIDERS: ATTEND Family Medicine
DX: S50.02XA Contusion of left elbow, initial encounter (principal); S46.212A Strain of muscle, fascia and tendon of other parts of biceps, left arm, initial encounter

== ENCOUNTER 2021-05-02 11:00 | Day surgery (SDC) | payer MEDICARE, OTHER ==
[2021-05-02] MEDS ORDERED: LACTATED RINGERS 1,000 ML IV ONE (11:54)
--- NOTE | 2021-05-02 12:07 | ANESTHESIA ---
Pre-Anesthesia VS, & Labs - Diagnosis polyps - Procedure colonoscopy Vital Signs: Temp Pulse Resp BP Pulse Ox 36.7 C 68 16 139/80 H 100 05/02/21 11:38 05/02/21 11:38 05/02/21 11:38 05/02/21 11:38 05/02/21 11:38 Height: 5 ft 3 in Weight (kg): 70.6 kg Body Mass Index: 27.6 BMI Classification: Overweight - NPO >8 hours - Is Patient ?: No Home Medications and Allergies Home Medications: Ambulatory Orders Docusate Sodium 100Mg Capsule [Colace 100Mg Capsule] 1 tab PO DAILY 05/01/21 Magnesium Hydroxide [Milk of Magnesia] PO DAILY 05/01/21 Methylcellulose (with Sugar) [Citrucel Powder] 1 PO DAILY 05/01/21 polyethylene glycoL 3350 [Miralax] 1 PO BID 05/01/21 Albuterol Sulfate [Albuterol Sulfate Hfa] 2 puffs INH Q6HR PRN 03/23/15 Fluticasone [Flonase] 2 spr OPHELIA DAILY 03/23/15 Gabapentin 900 mg PO DAILY 03/23/15 Montelukast Sodium [Singulair] 10 mg PO DAILY 03/23/15 Omeprazole [PriLOSEC] 1 cap PO DAILY 03/23/15 Ketoconazole 1 applic TP BID PRN 02/19/17 Cyclobenzaprine HCl 1 tab PO DAILY 01/07/18 Meloxicam 1 tab PO DAILY 01/07/18 Felodipine [Felodipine ER] 5 mg ORAL DAILY 03/22/18 Docusate Sodium 100Mg Capsule [Colace 100Mg Capsule] 1 tab PO DAILY 05/01/21 Magnesium Hydroxide [Milk of Magnesia] PO DAILY 05/01/21 Methylcellulose (with Sugar) [Citrucel Powder] 1 PO DAILY 05/01/21 polyethylene glycoL 3350 [Miralax] 1 PO BID 05/01/21 Allergies/Adverse Reactions: Allergies Allergy/AdvReac Type Severity Reaction Status Date / Time almond Allergy Anaphylaxis Verified 05/01/21 13:56 ibuprofen [From Motrin] AdvReac Headache Verified 04/29/18 16:22 Anes History & Medical History - Anesthetic History Anesthesia Complications: reports: No previous complications - Medical History Cardiovascular: reports: Hypertension Pulmonary: reports: Asthma Gastrointestinal: reports: Chronic constipation Urinary: reports: Chronic bladder infection, Kidney stones Musculoskeletal: reports: Osteoarthritis, Chronic back pain Endocrine/Autoimmune: reports: None Skin: reports: None Smoking Status: Never smoker History of Cancer?: No - Surgical History Eyes Ears Nose Throat (EENT): reports: Myringotomy (tubes), Tonsil/Adenoidectomy, Other Gynecologic: reports: Hysterectomy Orthopedic: reports: Rotator cuff repair, Spine surgery, Other Exam General: Alert Mouth Opening: Greater than 4 Fingerbreadths Mallampati classification: II Thyromental Distance: greater than 6 cm Respiratory: Lungs clear Cardiovascular: Regular rate Plan Anesthesia Type: Total IV Consent for Procedure(s) Verified and Reviewed: Yes Code Status: Attempt Resuscitation ASA classification: 3-Severe systemic disease Is this case an emergency?: No
[2021-05-02] MEDS ORDERED: PROPOFOL 200 MG/20 ML VIAL IVP ONE ×3 (12:17→12:53)
[2021-05-02] MEDS ORDERED: LIDOCAINE-PF 2% 10 ML AMP SUBQ ONE (12:24)
[2021-05-02] MEDS ORDERED: LACTATED RINGERS 400 ML IV ONE (13:00)
--- NOTE | 2021-05-02 13:39 | ANESTHESIA POST OP EVALUATION ---
Anesthesia Post Eval - Post Anesthesia Eval Vitals: Last Vital Signs Temp 36.4 C L 05/02/21 13:00 Pulse 77 05/02/21 13:08 Resp 14 05/02/21 13:08 BP 97/73 05/02/21 13:08 Pulse Ox 100 05/02/21 13:08 CV Function Including HR & BP: Stable Pain Control: Satisfactory Nausea & Vomiting: Negative Mental Status: Baseline Respiratory Status: Airway Patent Hydration Status: Satisfactory Anesthesia Complications: None
[2021-05-02 13:56] VITALS: BP 151/78
== END 2021-05-02 11:01 | disposition home or self-care (01) ==
LOC: SDS 11:00
PROVIDERS: ATTEND Surgery
DX: K62.5 Hemorrhage of anus and rectum (principal); K59.09 Other constipation; K64.8 Other hemorrhoids; E21.3 Hyperparathyroidism, unspecified; E07.9 Disorder of thyroid, unspecified; Z86.010 Personal history of colon polyps; K21.9 Gastro-esophageal reflux disease without esophagitis; I10 Essential (primary) hypertension; E78.5 Hyperlipidemia, unspecified; J45.909 Unspecified asthma, uncomplicated; F17.210 Nicotine dependence, cigarettes, uncomplicated; F10.21 Alcohol dependence, in remission; N30.20 Other chronic cystitis without hematuria; M19.90 Unspecified osteoarthritis, unspecified site; M10.9 Gout, unspecified; G89.29 Other chronic pain; M54.9 Dorsalgia, unspecified; I27.20 Pulmonary hypertension, unspecified; F43.10 Post-traumatic stress disorder, unspecified; F32.9 Major depressive disorder, single episode, unspecified; Z79.52 Long term (current) use of systemic steroids; Z79.899 Other long term (current) drug therapy; Z87.442 Personal history of urinary calculi; Z86.73 Personal history of transient ischemic attack (TIA), and cerebral infarction without residual deficits
CPT/HCPCS: 45378; J7120

== ENCOUNTER 2021-05-03 02:55 | Outpatient (CLI) | payer MEDICARE, OTHER | END 2021-05-03 02:56 | disposition critical access hospital (66) | LOC: EMS 02:55 | DX: R07.9 Chest pain, unspecified (principal); M25.512 Pain in left shoulder; R10.12 Left upper quadrant pain; S36.031A Moderate laceration of spleen, initial encounter; X58.XXXA Exposure to other specified factors, initial encounter | CPT/HCPCS: A0425; A0426; A0429 ==

== ENCOUNTER 2021-05-03 03:07 | Emergency (ER) | payer MEDICARE, OTHER ==
[2021-05-03] MEDS ORDERED: HYDROmorphone 1 MG/ML CARPUJECT IVP STA ×3 (03:11→09:14)
[2021-05-03 03:39] LABS: BASOPHILS % (AUTO) 0.6 %; EOSINOPHILS % (AUTO) 0.6 %; HCT - HEMATOCRIT 28.7 % (37.0-47.0); HGB - HEMOGLOBIN 8.4 g/dL (12.0-16.0); LYMPHOCYTES # (AUTO) 1.5 10^3/uL (1.5-3.5); LYMPHOCYTES % (AUTO) 23.1 %; MEAN CORPUSCULAR HEMOGLOBIN 22.6 pg (27.0-31.0); MEAN CORPUSCULAR HGB CONC 29.3 g/dL (32.0-36.0); MEAN CORPUSCULAR VOLUME 77.2 fL (81.0-99.0); MEAN PLATELET VOLUME 9.1 fL (7.9-10.8); MONOCYTES # (AUTO) 0.5 10^3/uL (0.0-1.0); MONOCYTES % (AUTO) 8.4 %; NEUTROPHILS # (AUTO) 4.3 10^3/uL (1.5-6.6); NEUTROPHILS % (AUTO) 67.1 %; PLT - PLATELET COUNT 333 10^3/uL (130-450); RED BLOOD COUNT 3.72 10^6/uL (4.20-5.40); WHITE BLOOD COUNT 6.4 x10^3/uL (4.8-10.8)
[2021-05-03 03:48] LABS: ALBUMIN/GLOBULIN RATIO 1.5 (1.0-2.2); BILIRUBIN,TOTAL 0.5 mg/dL (0.2-1.0); CALCIUM 9.2 mg/dL (8.5-10.3); CREATININE 0.7 mg/dL (0.4-1.0); TOTAL PROTEIN 6.6 g/dL (6.7-8.2)
--- NOTE | 2021-05-03 03:49 | ED Physician Documentation ---
History of Present Illness - Stated complaint Stated Complaint: LEFT ABD PAIN AND CP - Chief complaint Chief Complaint: Abd Pain - History obtained from History obtained from: Patient - Additonal information Additional information: 70-year-old woman with history of high blood pressure, asthma, stroke, hyperlipidemia, hypothyroidism, fibromyalgia, presents status post colonoscopy yesterday with Dr. Funez With sudden onset pain Around 1:30 AM in the left upper quadrant, left chest, and left shoulder. Patient denies nausea vomiting or diarrhea. Denies cough or shortness of breath. Review of Systems Ten Systems: 10 systems reviewed and negative Constitutional: denies: Fever, Chills Cardiac: reports: Chest pain / pressure Respiratory: denies: Dyspnea, Cough GI: reports: Abdominal Pain. 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 HEENT: Myringotomy (tubes), Tonsil/Adenoidectomy, Other - Present Medications Home Medications: Ambulatory Orders Medication Instructions Recorded Confirmed Albuterol Sulfate [Albuterol 2 puffs INH Q6HR PRN 03/23/15 05/01/21 Sulfate Hfa] Fluticasone [Flonase] 2 spr OPHELIA DAILY 03/23/15 05/01/21 Gabapentin 900 mg PO DAILY 03/23/15 05/01/21 Montelukast Sodium [Singulair] 10 mg PO DAILY 03/23/15 05/01/21 Omeprazole [PriLOSEC] 1 cap PO DAILY 03/23/15 05/01/21 Ketoconazole 1 applic TP BID PRN 02/19/17 05/01/21 Cyclobenzaprine HCl 1 tab PO DAILY 01/07/18 05/01/21 Meloxicam 1 tab PO DAILY 01/07/18 05/01/21 Felodipine [Felodipine ER] 5 mg ORAL DAILY 03/22/18 Lidocaine Patch 5% [Lidoderm Patch] 1 each TOP DAILY PRN #10 patch 03/22/18 Docusate Sodium 100Mg Capsule 1 tab PO DAILY 05/01/21 05/01/21 [Colace 100Mg Capsule] Magnesium Hydroxide [Milk of PO DAILY 05/01/21 Magnesia] Methylcellulose (with Sugar) 1 PO DAILY 05/01/21 [Citrucel Powder] polyethylene glycoL 3350 [Miralax] 1 PO BID 05/01/21 - Allergies Allergies/Adverse Reactions: Allergies Allergy/AdvReac Type Severity Reaction Status Date / Time almond Allergy Anaphylaxis Verified 05/03/21 03:09 ibuprofen [From Motrin] AdvReac Headache Verified 05/03/21 03:09 - Social History Does the pt smoke?: No Smoking Status: Never smoker Does the pt drink ETOH?: No Does the pt have substance abuse?: No - Immunizations Immunizations are current?: Yes PD ED PE NORMAL - Vitals Vital signs reviewed: Yes - General General: Alert and oriented X 3, Well developed/nourished, Other (Writhing in b ed) - HEENT HEENT: Atraumatic, PERRL, EOMI - Neck Neck: Supple, no meningeal sign - Cardiac Cardiac: RRR - Respiratory Respiratory: No respiratory distress, Clear bilaterally - Abdomen Abdomen: Other (Peritoneal abdomen, diffusely ttp) - Back Back: No CVA TTP - Derm Derm: Normal color, Warm and dry - Neuro Neuro: Alert and oriented X 3 - Psych Psych: Normal mood, Normal affect Results - Vitals Vitals: Oxygen O2 Source Nasal cannula - EKG (time done) 0314 Rate: Rate (enter#) (77) Rhythm: NSR [place]: Normal Intervals: Normal HI QRS: Normal Ischemia: Normal ST segments Computer interpretation: Disagree with computer (no ST depression, no ischemic changes) - Labs Labs: Laboratory Tests 05/03/21 05/03/21 05/03/21 03:29 03:29 04:30 WBC 6.4 RBC 3.72 L Hgb 8.4 L Hct 28.7 L MCV 77.2 L MCH 22.6 L MCHC 29.3 L RDW 16.0 H Plt Count 333 MPV 9.1 Neut # (Auto) 4.3 Lymph # (Auto) 1.5 [place] # (Auto) 0.5 Eos # (Auto) 0.0 Baso # (Auto) 0.0 Absolute Nucleated RBC 0.00 Nucleated RBC % 0.0 PT INR APTT Sodium 138 Potassium 3.0 L Chloride 100 L Carbon Dioxide 28 Anion Gap 10.0 BUN 13 Creatinine 0.7 Estimated GFR (MDRD) 83 L Glucose 164 H Calcium 9.2 Total Bilirubin 0.5 AST 22 ALT 17 Alkaline Phosphatase 110 Total Protein 6.6 L Albumin 4.0 Globulin 2.6 Albumin/Globulin Ratio 1.5 Lipase 39 Urine Color Urine Clarity Urine pH Ur Specific [place] Urine Protein Urine Glucose (UA) Urine Ketones Urine Occult Blood Urine Nitrite Urine Bilirubin Urine Urobilinogen Ur Leukocyte Esterase Ur Microscopic Review Urine Culture Comments Nasal Adenovirus (PCR) NOT DETECTED Nasal B. parapertussis DNA (PCR) NOT DETECTED Nasal Coronavir 229E PCR NOT DETECTED Nasal Coronavir HKU1 PCR NOT DETECTED Nasal Coronavir NL63 PCR NOT DETECTED Nasal Coronavir OC43 PCR NOT DETECTED Nasal Enterovir/Rhinovir PCR NOT DETECTED Nasal Influenza B PCR NOT DETECTED Nasal Influenza A PCR NOT DETECTED Nasal Parainfluen 1 PCR NOT DETECTED Nasal Parainfluen 2 PCR NOT DETECTED Nasal Parainfluen 3 PCR NOT DETECTED Nasal Parainfluen 4 PCR NOT DETECTED Nasal RSV (PCR) NOT DETECTED Nasal B.pertussis DNA PCR NOT DETECTED Nasal C.pneumoniae (PCR) NOT DETECTED [place] Human Metapneumo PCR NOT DETECTED Nasal M.pneumoniae (PCR) NOT DETECTED Nasal SARS-CoV-2 (PCR) NOT DETECTED Blood Type Blood Type Recheck Antibody Screen Crossmatch IS Only 05/03/21 05/03/21 05/03/21 05:33 05:53 06:04 WBC RBC Hgb Hct MCV MCH MCHC RDW Plt Count MPV Neut # (Auto) Lymph # (Auto) [place] # (Auto) Eos # (Auto) Baso # (Auto) Absolute Nucleated RBC Nucleated RBC % PT 12.4 INR 1.1 APTT 30.1 Sodium Potassium Chloride Carbon Dioxide Anion Gap BUN Creatinine Estimated GFR (MDRD) Glucose Calcium Total Bilirubin AST ALT Alkaline Phosphatase Total Protein Albumin Globulin Albumin/Globulin Ratio Lipase Urine Color Urine Clarity Urine pH Ur Specific [place] Urine Protein Urine Glucose (UA) Urine Ketones Urine Occult Blood Urine Nitrite Urine Bilirubin Urine Urobilinogen Ur Leukocyte Esterase Ur Microscopic Review Urine Culture Comments Nasal Adenovirus (PCR) Nasal B. parapertussis DNA (PCR) Nasal Coronavir 229E PCR Nasal Coronavir HKU1 PCR Nasal Coronavir NL63 PCR Nasal Coronavir OC43 PCR Nasal Enterovir/Rhinovir PCR Nasal Influenza B PCR Nasal Influenza A PCR Nasal Parainfluen 1 PCR Nasal Parainfluen 2 PCR Nasal Parainfluen 3 PCR Nasal Parainfluen 4 PCR Nasal RSV (PCR) Nasal B.pertussis DNA PCR Nasal C.pneumoniae (PCR) [place] Human Metapneumo PCR Nasal M.pneumoniae (PCR) Nasal SARS-CoV-2 (PCR) Blood Type O POSITIVE Blood Type Recheck O POSITIVE Antibody Screen NEGATIVE Crossmatch IS Only See Detail 05/03/21 05/03/21 07:47 08:45 WBC 11.6 H RBC 3.12 L Hgb 7.4 L Hct 23.9 L MCV 76.6 L MCH 23.7 L MCHC 31.0 L RDW 15.9 H Plt Count 268 MPV 8.6 Neut # (Auto) 10.0 H Lymph # (Auto) 0.9 L [place] # (Auto) 0.6 Eos # (Auto) 0.0 Baso # (Auto) 0.0 Absolute Nucleated RBC 0.00 Nucleated RBC % 0.0 PT INR APTT Sodium Potassium Chloride Carbon Dioxide Anion Gap BUN Creatinine Estimated GFR (MDRD) Glucose Calcium Total Bilirubin AST ALT Alkaline Phosphatase Total Protein Albumin Globulin Albumin/Globulin Ratio Lipase Urine Color YELLOW Urine Clarity CLEAR Urine pH 6.0 Ur Specific [place] 1.010 Urine Protein NEGATIVE Urine Glucose (UA) NEGATIVE Urine Ketones NEGATIVE Urine Occult Blood NEGATIVE Urine Nitrite NEGATIVE Urine Bilirubin NEGATIVE Urine Urobilinogen 0.2 (NORMAL) Ur Leukocyte Esterase NEGATIVE Ur Microscopic Review NOT INDICATED Urine Culture Comments NOT INDICATED Nasal Adenovirus (PCR) Nasal B. parapertussis DNA (PCR) Nasal Coronavir 229E PCR Nasal Coronavir HKU1 PCR Nasal Coronavir NL63 PCR Nasal Coronavir OC43 PCR Nasal Enterovir/Rhinovir PCR Nasal Influenza B PCR Nasal Influenza A PCR Nasal Parainfluen 1 PCR Nasal Parainfluen 2 PCR Nasal Parainfluen 3 PCR Nasal Parainfluen 4 PCR Nasal RSV (PCR) Nasal B.pertussis DNA PCR Nasal C.pneumoniae (PCR) [place] Human Metapneumo PCR Nasal M.pneumoniae (PCR) Nasal SARS-CoV-2 (PCR) Blood Type Blood Type Recheck Antibody Screen Crossmatch IS Only PD MEDICAL DECISION MAKING - ED course ED course: 4 AMpatient feeling better status post Dilaudid. Denies nausea. Endorsing left shoulder pain and persistent abdominal pain. d/w Dr. Gonzalez in regards to grade 3 splenic lac and he advised us to contact Dr. funez. 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 unable to reach him. d/w patient and son that she has splenic lac that is traumatic in nature. patient states she has been having pain in this area since before the colonoscopy and that she has had frequent falls. unlikely related to colonoscopy. 6am d/w Dr. Baldwin (accepting surgeon at [facility]) who states patient definitely should go to a hospital with IR and gen surg capabilities. she recommends [facility] but states she can take the patient if they don't have availability. she will contact [facility] and call back. d/w [facility] ([place], [place]) Dr. Jaydon Noriega, gen surg accepting. they will call back when they have a bed. Patient endorsed to incoming daytime MD Departure - Departure Disposition: 02 Transfer Acute Care Hosp Clinical Impression: Splenic laceration, Multiple falls, Anemia Condition: Stable Discharge Date/Time: 05/03/21 09:25
[2021-05-03] MEDS ORDERED: IOPAMIDOL-300 100 ML VIAL ONE (04:19)
[2021-05-03] MEDS ORDERED: IOPAMIDOL-300 100 ML VIAL IVP ONE (04:57)
[2021-05-03 05:47] LABS: B. PARAPERTUSSIS- RESP PCR PAN NOT DETECTED; B. PERTUSSIS- RESP PCR PANEL NOT DETECTED; C. PNEUMONIAE- RESP PCR PANEL NOT DETECTED; CORONAVIRUS 229E-RESP PCR NOT DETECTED; CORONAVIRUS HKU1-RESP PCR NOT DETECTED; CORONAVIRUS NL63-RESP PCR NOT DETECTED; CORONAVIRUS OC43-RESP PCR NOT DETECTED; HUMAN METAPNEUMOVIRUS NOT DETECTED; INFLUENZA A- RESP PCR PANEL NOT DETECTED; INFLUENZA B - RESP PCR PANEL NOT DETECTED; M. PNEUMONIAE- RESP PCR PANEL NOT DETECTED; PARAINFLUENZA VIRUS 1 NOT DETECTED; PARAINFLUENZA VIRUS 2 NOT DETECTED; PARAINFLUENZA VIRUS 3 NOT DETECTED; PARAINFLUENZA VIRUS 4 NOT DETECTED; RHINOVIRUS/ENTEROVIRUS NOT DETECTED; RSV- RESP PCR PANEL NOT DETECTED; SARS-CoV-2 -RESP PCR PANEL NOT DETECTED
[2021-05-03 06:08] LABS: INR 1.1 (0.8-1.2); PT - PROTHROMBIN TIME 12.4 secs (9.9-12.6)
[2021-05-03 06:23] LABS: PARTIAL THROMBOPLASTIN TIME 30.1 secs (24.9-33.3)
[2021-05-03 07:55] LABS: BASOPHILS % (AUTO) 0.3 %; HCT - HEMATOCRIT 23.9 % (37.0-47.0); HGB - HEMOGLOBIN 7.4 g/dL (12.0-16.0); LYMPHOCYTES # (AUTO) 0.9 10^3/uL (1.5-3.5); LYMPHOCYTES % (AUTO) 8.1 %; MEAN CORPUSCULAR HEMOGLOBIN 23.7 pg (27.0-31.0); MEAN CORPUSCULAR VOLUME 76.6 fL (81.0-99.0); MEAN PLATELET VOLUME 8.6 fL (7.9-10.8); MONOCYTES # (AUTO) 0.6 10^3/uL (0.0-1.0); MONOCYTES % (AUTO) 4.8 %; NEUTROPHILS % (AUTO) 86.4 %; PLT - PLATELET COUNT 268 10^3/uL (130-450); RED BLOOD COUNT 3.12 10^6/uL (4.20-5.40); RED CELL DISTRIBUTION WIDTH 15.9 % (12.0-15.0); WHITE BLOOD COUNT 11.6 x10^3/uL (4.8-10.8)
--- NOTE | 2021-05-03 08:08 | XRAY Report ---
PROCEDURE: Abdomen 2 View X-Ray INDICATIONS: eval for perf TECHNIQUE: 2 views of the abdomen were acquired. COMPARISON: None FINDINGS: Surgical changes and devices: None. Bowel: No pneumoperitoneum. The bowel gas pattern is normal. Small hiatal hernia. Soft tissues: No masses; visualized solid organ contours appear normal in size. No suspicious abdom inal calcifications. Bones: No suspicious bony abnormalities. IMPRESSION: Small hiatal hernia. No evidence of acute abdominal process. A preliminary report with the above findings was provided at the time of the study by [facility]. Reviewed by: Francisco Tapia MD on 05/03/2021 8:07 AM PDT Approved by: Francisco Tapia MD on 05/03/2021 8:07 AM PDT Station ID: [id number]
--- NOTE | 2021-05-03 08:10 | XRAY Report ---
PROCEDURE: Chest 1 View X-Ray INDICATIONS: eval for perf TECHNIQUE: One view of the chest was acquired. COMPARISON: 04/24/2020 FINDINGS: Surgical changes and devices: None. Lungs and pleura: No pleural effusions or pneumothorax. Minimal bibasilar atelectasis. Mediastinum: Mediastinal contours appear normal. Heart size is normal. Mild to moderate hiatal baylee ia. Bones and chest wall: No suspicious bony lesions. Overlying soft tissues appear unremarkable. IMPRESSION: 1. Minimal bibasilar atelectasis. 2. Mild to moderate hiatal hernia. Reviewed by: Francisco Tapia MD on 05/03/2021 8:08 AM PDT Approved by: Francisco aTpia MD on 05/03/2021 8:08 AM PDT Station ID: [id number]
[2021-05-03 08:52] LABS: BILIRUBIN,URINE NEGATIVE (NEGATIVE); GLUCOSE, URINE (UA) NEGATIVE (NEGATIVE); KETONES,URINE (UA) NEGATIVE (NEGATIVE); LEUKOCYTE ESTERASE, URINE NEGATIVE (NEGATIVE); NITRITE,URINE NEGATIVE (NEGATIVE); OCCULT BLOOD,URINE NEGATIVE (NEGATIVE); PROTEIN,URINE NEGATIVE (NEGATIVE); UROBILINOGEN,URINE 0.2 (NORMAL) E.U./dL (NORMAL)
[2021-05-03 09:00] LABS: CLARITY,URINE CLEAR (CLEAR)
--- NOTE | 2021-05-03 09:06 | CT Report ---
PROCEDURE: Abdomen/Pelvis W INDICATIONS: acute onset abd pain s/p colonoscopy CONTRAST: IV CONTRAST: Isovue 300 ml: 100 PO CONTRAST: *NO PO CONTRAST TECHNIQUE: After the administration of intravenous contrast, 5 mm thick sections acquired from the diaphragms to the symphysis. 5 mm thick coronal and sagittal reformats were acquired. For radiation dose reducti on, the following was used: automated exposure control, adjustment of mA and/or kV according to lainey ent size. COMPARISON: 06/25/2019 FINDINGS: Image quality: Excellent. ABDOMEN: Lung bases: Minimal bibasilar dependent change. Heart size is normal. Moderate hiatal hernia. Solid organs: There is extensive splenic laceration with active extravasation and large subcapsular splenic hematoma and associated perisplenic hematoma. On coronal image 34/6, the thickness of the sub capsular splenic hematoma is 4.3 cm. Overall dimensions of subcapsular hematoma/perisplenic hematoma is approximately 10.0 x 9.3 x 10.3 cm. No liver laceration. Liver unremarkable. There is, however, some perihepatic hemorrhagic fluid. Gallb ladder not identified. Biliary system is non dilated. Pancreas enhances normally. No adrenal nodul es. Kidneys demonstrate normal size and enhancement, without hydronephrosis. Peritoneum and bowel: Bowel loops demonstrate normal wall thickness and caliber. There is mild hemor rhagic pelvic ascites as well as mild hemorrhagic perihepatic ascites. Nodes and vessels: No retroperitoneal or mesenteric adenopathy by size criteria. Aorta is tortuous a nd ectatic but not frankly aneurysmal. It measures 2.9 cm in diameter. There are atherosclerotic calc ifications in the aorta and bilateral common iliac arteries. Miscellaneous: No ventral hernias. PELVIS: Genitourinary: Bladder wall thickness is normal. Miscellaneous: No inguinal hernias or adenopathy. Bones: No suspicious bony lesions. No vertebral body compression fractures. Extensive degenerative change, scoliotic curvature. IMPRESSION: 1. Severe splenic injury with laceration, large subcapsular/perisplenic hematoma, and active extravas ation. The presence of active extravasation implies that this is a grade 4 splenic injury by AAST cri teria 2. Mild generalized hemorrhagic ascites. A preliminary report with the above findings was provided at the time of the study by [facility]. Reviewed by: Francisco Tapia MD on 05/03/2021 9:04 AM PDT Approved by: Francisco Tapia MD on 05/03/2021 9:04 AM PDT Station ID: [id number]
[2021-05-03 09:14] VITALS: BP 131/75
[2021-05-03] MEDS ORDERED: HYDROmorphone 1 MG/ML CARPUJECT ONE (09:19)
== END 2021-05-03 09:25 | disposition short-term general hospital (02) ==
LOC: EDUNIT# → SUPCPDRO 03:07 → ED 03:07
DX: S36.032A Major laceration of spleen, initial encounter (principal); X58.XXXA Exposure to other specified factors, initial encounter; D64.9 Anemia, unspecified; Z91.81 History of falling; Z20.822 Contact with and (suspected) exposure to COVID-19
CPT/HCPCS: 36415; 36430; 71045; 74019; 74177; 80053; 81003; 83690; 85025; 85610; 85730; 86850; 86900; 86901; 86920; 87631; 93005; 96374; 96376; 99285; J1170; P9016; Q9967; 0202U; 81001; 87086

== ENCOUNTER 2021-05-03 09:29 | Outpatient (CLI) | payer MEDICARE, OTHER | END 2021-05-03 09:30 | disposition short-term general hospital (02) | LOC: EMS 09:29 | PROVIDERS: ATTEND Emergency Medicine | DX: S36.031A Moderate laceration of spleen, initial encounter (principal) | CPT/HCPCS: A0425; A0426 ==

== ENCOUNTER 2021-05-25 14:49 | Emergency (ER) | payer MEDICARE, OTHER ==
[2021-05-25] MEDS ORDERED: ONDANSETRON 4 MG/2 ML VIAL IVP STA (15:38)
[2021-05-25] MEDS ORDERED: HYDROmorphone 1 MG/ML CARPUJECT IVP STA (15:38)
--- NOTE | 2021-05-25 15:41 | ED Physician Documentation ---
PD HPI ABD PAIN - Stated complaint Stated Complaint: ABD PX - Chief complaint Chief Complaint: Abd Pain - History obtained from History obtained from: Patient - History of Present Illness Timing - onset: How many weeks ago (3) Timing - duration: Weeks (3) Timing - details: Gradual onset, Still present, Waxing and waning Quality: Sharp, Pain Location: LUQ Radiation: Chest Improved by: Laying still Worsened by: Eating, Moving, Breathing, Position, Palpation Associated symptoms: Nausea, Loss of appetite. No: Vomiting, Diarrhea Similar symptoms before: Diagnosis (splenic laceration after colonoscopy) Recently seen: Admitted - Additional information Additional information: 70-year-old female had colonoscopy done last month and she had a complication following that with a splenic laceration. She was kept at [facility] for several days for that episode. She states that the pain is never really resolved and her pain is worse now over the past 3 days. She is having pain when she breathes when she eats and she is getting nauseous when she eats and she has had a decreased appetite Review of Systems Constitutional: denies: Fever Eyes: denies: Decreased vision Ears: denies: Ear pain Nose: denies: Congestion Throat: denies: Sore throat Cardiac: reports: Chest pain / pressure. denies: Palpitations, Pedal edema, Calf pain Respiratory: reports: Dyspnea. denies: Cough, Wheezing GI: reports: Abdominal Pain, Nausea. 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 HEENT: Myringotomy (tubes), Tonsil/Adenoidectomy, Other - Present Medications Home Medications: Ambulatory Orders Medication Instructions Recorded Confirmed Albuterol Sulfate [Albuterol 2 puffs INH Q6HR PRN 03/23/15 05/01/21 Sulfate Hfa] Fluticasone [Flonase] 2 spr OPHELIA DAILY 03/23/15 05/01/21 Gabapentin 900 mg PO DAILY 03/23/15 05/01/21 Montelukast Sodium [Singulair] 10 mg PO DAILY 03/23/15 05/01/21 Omeprazole [PriLOSEC] 1 cap PO DAILY 03/23/15 05/01/21 Ketoconazole 1 applic TP BID PRN 02/19/17 05/01/21 Cyclobenzaprine HCl 1 tab PO DAILY 01/07/18 05/01/21 Meloxicam 1 tab PO DAILY 01/07/18 05/01/21 Felodipine [Felodipine ER] 5 mg ORAL DAILY 03/22/18 Lidocaine Patch 5% [Lidoderm Patch] 1 each TOP DAILY PRN #10 patch 03/22/18 Docusate Sodium 100Mg Capsule 1 tab PO DAILY 05/01/21 05/01/21 [Colace 100Mg Capsule] Magnesium Hydroxide [Milk of PO DAILY 05/01/21 Magnesia] Methylcellulose (with Sugar) 1 PO DAILY 05/01/21 [Citrucel Powder] polyethylene glycoL 3350 [Miralax] 1 PO BID 05/01/21 Lactulose [Generlac] 10 gm PO TID PRN #300 ml 05/25/21 - Allergies Allergies/Adverse Reactions: Allergies Allergy/AdvReac Type Severity Reaction Status Date / Time almond Allergy Anaphylaxis Verified 05/03/21 03:09 papaya Allergy Anaphylaxis Verified 05/25/21 15:00 ibuprofen [From Motrin] AdvReac Headache Verified 05/03/21 03:09 - Social History Does the pt smoke?: No Smoking Status: Never smoker Does the pt drink ETOH?: No Does the pt have substance abuse?: No - Immunizations Immunizations are current?: Yes PD ED PE NORMAL - Vitals Vital signs reviewed: Yes (hypertensive) - General General: Alert and oriented X 3, No acute distress, Well developed/nourished - HEENT HEENT: Atraumatic, PERRL, EOMI - Neck Neck: Supple, no meningeal sign, No bony TTP - Cardiac Cardiac: RRR, No murmur - Respiratory Respiratory: No respiratory distress, Clear bilaterally - Abdomen Abdomen: Normal bowel sounds, Soft, Non distended, No organomegaly, Other (TTP to the LUQ with radiation of pain into the chest) - Back Back: No CVA TTP, No spinal TTP - Derm Derm: Normal color, Warm and dry, No rash - Extremities Extremities: No deformity - Neuro Neuro: Alert and oriented X 3, 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, No motor deficit, No sensory deficit, Normal speech Eye Opening: Spontaneous Motor: Obeys Commands Verbal: Oriented GCS Score: 15 - Psych Psych: Normal mood, Normal affect Results - Vitals Vitals: Vital Signs - 24 hr 05/25/21 14:54 Temperature 36.8 C Heart Rate 79 Respiratory 18 Rate Blood Pressure 152/81 H O2 Saturation 98 Oxygen O2 Source Room air - Labs Labs: Laboratory Tests 05/25/21 05/25/21 05/25/21 15:16 15:51 15:51 WBC 7.2 RBC 4.58 Hgb 11.4 L Hct 36.8 L MCV 80.3 L MCH 24.9 L MCHC 31.0 L RDW 19.5 H Plt Count 518 H MPV 8.5 Neut # (Auto) 5.1 Lymph # (Auto) 1.4 L [place] # (Auto) 0.6 Eos # (Auto) 0.0 Baso # (Auto) 0.1 Absolute Nucleated RBC 0.00 Nucleated RBC % 0.0 Sodium 138 Potassium 4.3 Chloride 101 Carbon Dioxide 27 Anion Gap 10.0 BUN 22 H Creatinine 0.8 Estimated GFR (MDRD) 71 L Glucose 98 Calcium 10.1 Total Bilirubin 0.6 AST 17 ALT 12 Alkaline Phosphatase 130 H Total Protein 7.4 Albumin 4.4 Globulin 3.0 Albumin/Globulin Ratio 1.5 Lipase 48 Urine Color YELLOW Urine Clarity CLEAR Urine pH 5.5 Ur Specific [place] >=1.030 H Urine Protein NEGATIVE Urine Glucose (UA) NEGATIVE Urine Ketones NEGATIVE Urine Occult Blood TRACE-INTA Urine Nitrite NEGATIVE Urine Bilirubin NEGATIVE Urine Urobilinogen 0.2 (NORMAL) Ur Leukocyte Esterase NEGATIVE Ur Microscopic Review NOT INDICATED Urine Culture Comments NOT INDICATED - Rads (name of study) chest Radiology: Prelim report reviewed (Impression: No acute cardiopulmonary abnormality identified. Mild to moderate hiatal hernia.), EMP read indepedently, See rad report PD MEDICAL DECISION MAKING - ED course ED course: CT ab/pel with: Impression: Prior splenic rupture, with subacute hematoma, without findings of hyperdense components or active extravasation. There is a moderate amount of stool seen within the colon. Please correlate with clinical constipation. Inc idental note is made of: Moderate hiatal hernia nonobstructing right kidney stone simple appearing left renal cysts moderate dextro convex scoliosis focal L2-L3 degenerative change hysterectomy. 70-year-old female with a recent splenic rupture has pain again the left upper quadrant pain into her left shoulder she is quite constipated on her on her CT scan. Here in the emergency department she arrives with pain and appears to be painful she is administered some Dilaudid which does help with her pain. She goes on to give a lot of history about how bad her constipation is and how difficult it is to take care of she has not gotten luck with milk of magnesia or magnesium citrate. We will try today some lactulose. Her CT scan shows improvement in her hematoma and we will provide some dexamethasone as an attempt to ameliorate the irritating pain to the left shoulder and we will avoid narcotic. Departure - Departure Disposition: 01 Home, Self Care Clinical Impression: Constipation by delayed colonic transit Spleen hematoma Qualifiers: Encounter type: subsequent encounter Qualified Code(s): S36.029D - Unspecified contusion of spleen, subsequent encounter Condition: Stable Instructions: ED Hematoma, ED Constipation Follow-Up: Walyon Power DO [Primary Care Provider] - Prescriptions: Lactulose [Generlac] 10 gm PO TID PRN #300 ml PRN Reason: constipation
[2021-05-25] MEDS ORDERED: IOPAMIDOL-300 50 ML VIAL ONE (15:48)
[2021-05-25 15:57] LABS: BILIRUBIN,URINE NEGATIVE (NEGATIVE); GLUCOSE, URINE (UA) NEGATIVE (NEGATIVE); KETONES,URINE (UA) NEGATIVE (NEGATIVE); LEUKOCYTE ESTERASE, URINE NEGATIVE (NEGATIVE); NITRITE,URINE NEGATIVE (NEGATIVE); OCCULT BLOOD,URINE TRACE-INTA (NEGATIVE); PH,URINE 5.5 PH (5.0-7.5); PROTEIN,URINE NEGATIVE (NEGATIVE); UROBILINOGEN,URINE 0.2 (NORMAL) E.U./dL (NORMAL)
[2021-05-25 15:58] LABS: BASOPHILS # (AUTO) 0.1 10^3/uL (0.0-0.1); BASOPHILS % (AUTO) 0.7 %; EOSINOPHILS % (AUTO) 0.4 %; HCT - HEMATOCRIT 36.8 % (37.0-47.0); HGB - HEMOGLOBIN 11.4 g/dL (12.0-16.0); LYMPHOCYTES # (AUTO) 1.4 10^3/uL (1.5-3.5); LYMPHOCYTES % (AUTO) 18.9 %; MEAN CORPUSCULAR HEMOGLOBIN 24.9 pg (27.0-31.0); MEAN CORPUSCULAR VOLUME 80.3 fL (81.0-99.0); MEAN PLATELET VOLUME 8.5 fL (7.9-10.8); MONOCYTES # (AUTO) 0.6 10^3/uL (0.0-1.0); MONOCYTES % (AUTO) 8.8 %; NEUTROPHILS # (AUTO) 5.1 10^3/uL (1.5-6.6); NEUTROPHILS % (AUTO) 71.1 %; PLT - PLATELET COUNT 518 10^3/uL (130-450); RED BLOOD COUNT 4.58 10^6/uL (4.20-5.40); RED CELL DISTRIBUTION WIDTH 19.5 % (12.0-15.0); WHITE BLOOD COUNT 7.2 x10^3/uL (4.8-10.8)
[2021-05-25 15:58] LABS: CLARITY,URINE CLEAR (CLEAR)
--- NOTE | 2021-05-25 16:15 | XRAY Report ---
PROCEDURE: Chest 1 View X-Ray INDICATIONS: chest pain TECHNIQUE: One view of the chest was acquired. COMPARISON: Chest radiographs 05/03/2021 FINDINGS: Surgical changes and devices: None. Lungs and pleura: No pleural effusions or pneumothorax. Lungs are clear. Mediastinum: Mediastinal contours appear normal. Heart size is normal. Mild to moderate hernia red emonstrated. Bones and chest wall: No suspicious bony lesions. Overlying soft tissues appear unremarkable. IMPRESSION: No acute cardiopulmonary abnormality identified. Mild to moderate hiatal hernia. Reviewed by: Jose M Vidal MD on 05/25/2021 4:14 PM PDT Approved by: Jose M Vidal MD on 05/25/2021 4:14 PM PDT Station ID: [id number]
[2021-05-25 16:16] LABS: ALBUMIN 4.4 g/dL (3.2-5.5); ALBUMIN/GLOBULIN RATIO 1.5 (1.0-2.2); BILIRUBIN,TOTAL 0.6 mg/dL (0.2-1.0); CALCIUM 10.1 mg/dL (8.5-10.3); CREATININE 0.8 mg/dL (0.4-1.0); POTASSIUM 4.3 mmol/L (3.5-5.0); TOTAL PROTEIN 7.4 g/dL (6.7-8.2)
[2021-05-25] MEDS ORDERED: SODIUM CHLORIDE 0.9% 1,000 ML IV STA (16:43)
--- NOTE | 2021-05-25 17:45 | CT Report ---
PROCEDURE: Abdomen/Pelvis W INDICATIONS: LUQ pain splenic rupture CONTRAST: IV CONTRAST: Isovue 300 ml: 100 PO CONTRAST: *NO PO CONTRAST TECHNIQUE: After the administration of IV contrast, 5 mm thick sections acquired from the diaphragms to the symp hysis. 5 mm thick coronal and sagittal reformats were acquired. For radiation dose reduction, the f ollowing was used: automated exposure control, adjustment of mA and/or kV according to patient size. COMPARISON: 05/03/2021, 06/25/2019 FINDINGS: Image quality: Excellent. ABDOMEN: Lung bases: Lung bases are clear. Heart size is normal. There is a moderate hiatal hernia seen. Solid organs: In this patient with this given history, scrutiny is given to the spleen. The spleen d emonstrates an irregular appearance, yet this is improved compared to the prior examination. There is a resolving hematoma seen surrounding the spleen, with a density of 33 Hounsfield units, which is im proved compared to the prior examination. No hyperdense components can be seen to suggest active extr avasation or acute hemorrhage. Liver demonstrates size and enhancement. Gallbladder wall does not appear thickened. Biliary syst em is non dilated. Pancreas enhances normally. No adrenal nodules. The kidneys are mildly atrophic. At the superior pole of the right kidney, there is a nonobstructing 3 mm kidney stone seen. Stable nonenhancing simple appearing cysts are seen on the left. Peritoneum and bowel: Bowel loops demonstrate normal wall thickness and caliber. No free fluid or a ir. There is a moderate amount of stool seen within the colon. A normal appendix is incidentally not ed. The transverse colon is redundant and tortuous. Nodes and vessels: No retroperitoneal or mesenteric adenopathy by size criteria. Aorta and inferior vena cava are normal in size. Atherosclerotic calcification is seen. Miscellaneous: No ventral hernias. PELVIS: Genitourinary: Bladder wall thickness is normal. This patient is status post hysterectomy. No adnex al masses can be seen. Miscellaneous: No inguinal hernias or adenopathy. Bones: No suspicious bony lesions. No vertebral body compression fractures. Moderate dextroconvex scoliosis is seen. Degenerative changes are seen throughout, which are worst at the L2-L3 level. IMPRESSION: Prior splenic rupture, with a subacute hematoma, without findings of hyperdense componen ts or active extravasation. There is a moderate amount of stool seen within the colon. Please correlate with clinical constipatio n. Incidental note is made of: Moderate hiatal hernia Nonobstructing right-sided kidney stone Simple appearing left renal cysts Moderate dextroconvex scoliosis Focal L2-L3 degenerative change Hysterectomy Reviewed by: Lukasz Garcia MD on 05/25/2021 4:43 PM [facility] Approved by: Lukasz Garcia MD on 05/25/2021 4:43 PM [facility] Station ID: [id number]
[2021-05-25 18:06] VITALS: BP 149/73
[2021-05-25] MEDS ORDERED: DEXAMETHASONE 10 MG/ML VIAL IVP STA (18:10)
[2021-05-25] MEDS ORDERED: IOPAMIDOL-300 50 ML VIAL PO ONE (18:50)
== END 2021-05-25 18:37 | disposition home or self-care (01) ==
LOC: ED 14:49
DX: S36.029A Unspecified contusion of spleen, initial encounter (principal); X58.XXXA Exposure to other specified factors, initial encounter; K59.01 Slow transit constipation; I10 Essential (primary) hypertension
CPT/HCPCS: 36415; 71045; 74177; 80053; 81003; 83690; 85025; 96374; 96375; 99284; J1170; Q9967; 81001; 87086

== ENCOUNTER 2021-07-31 13:32 | Outpatient (CLI) | payer MEDICARE, OTHER ==
[2021-07-31 14:20] LABS: BASOPHILS # (AUTO) 0.1 10^3/uL (0.0-0.1); BASOPHILS % (AUTO) 0.8 %; EOSINOPHILS % (AUTO) 0.3 %; HCT - HEMATOCRIT 40.3 % (37.0-47.0); HGB - HEMOGLOBIN 12.4 g/dL (12.0-16.0); LYMPHOCYTES # (AUTO) 1.6 10^3/uL (1.5-3.5); LYMPHOCYTES % (AUTO) 25.6 %; MEAN CORPUSCULAR HEMOGLOBIN 25.8 pg (27.0-31.0); MEAN CORPUSCULAR HGB CONC 30.8 g/dL (32.0-36.0); MEAN PLATELET VOLUME 9.2 fL (7.9-10.8); MONOCYTES # (AUTO) 0.5 10^3/uL (0.0-1.0); MONOCYTES % (AUTO) 7.9 %; NEUTROPHILS # (AUTO) 4.1 10^3/uL (1.5-6.6); NEUTROPHILS % (AUTO) 65.2 %; PLT - PLATELET COUNT 312 10^3/uL (130-450); RED CELL DISTRIBUTION WIDTH 18.7 % (12.0-15.0); WHITE BLOOD COUNT 6.3 x10^3/uL (4.8-10.8)
[2021-07-31 14:35] LABS: ALBUMIN 4.8 g/dL (3.2-5.5); ALBUMIN/GLOBULIN RATIO 1.5 (1.0-2.2); BILIRUBIN,TOTAL 0.8 mg/dL (0.2-1.0); CALCIUM 10.8 mg/dL (8.5-10.3); CREATININE 0.7 mg/dL (0.4-1.0); POTASSIUM 3.9 mmol/L (3.5-5.0); TOTAL PROTEIN 7.9 g/dL (6.7-8.2)
== END 2021-07-31 13:33 | disposition home or self-care (01) ==
LOC: LAB 13:32
PROVIDERS: ATTEND Family Medicine
DX: E83.52 Hypercalcemia (principal); S36.00 Unspecified injury of spleen; D64.9 Anemia, unspecified; Z77.011 Contact with and (suspected) exposure to lead; M06.9 Rheumatoid arthritis, unspecified; F41.9 Anxiety disorder, unspecified
CPT/HCPCS: 36415; 80053; 83540; 83655; 84466; 85025

== ENCOUNTER 2021-08-02 11:22 | Outpatient (CLI) | payer MEDICARE, OTHER ==
[2021-08-02] MEDS ORDERED: IOVERSOL 320 100 ML VIAL IVP ONE (11:40)
[2021-08-02] MEDS ORDERED: IOVERSOL 320 50 ML VIAL ONE (11:40)
--- NOTE | 2021-08-02 13:21 | CT Report ---
PROCEDURE: Abdomen/Pelvis W INDICATIONS: ABD PAIN, INJURY TO SPLEEN CONTRAST: IV CONTRAST: Optiray 320 ml: 100 PO CONTRAST: Optiray 320 ml50 TECHNIQUE: After the administration of oral and intravenous contrast, 5 mm thick sections acquired from the diap hragms to the symphysis. 5 mm thick coronal and sagittal reformats were acquired. For radiation dos e reduction, the following was used: automated exposure control, adjustment of mA and/or kV accordin g to patient size. COMPARISON: 05/25/2021 FINDINGS: Image quality: Excellent. ABDOMEN: Lung bases: Lung bases are clear. Heart size is normal. Mild coronary artery calcifications. Solid organs: No liver lesions. Liver is unremarkable in appearance. Continued decrease in the size o f a subcapsular splenic collection, which on previous coronal image 32/5 measured approximately 9.8 x 3.9 cm, and on current coronal image 29/6 measures approximately 5.9 x 1.8 cm. Additionally, the con tents are now water density consistent with resolving liquefying subcapsular splenic hematoma. Gallbl adder is unremarkable. Biliary system is non dilated. Pancreas enhances normally. No adrenal nodul es. Kidneys demonstrate normal size and enhancement, without hydronephrosis. Small nonobstructing r ight renal stone, as before. Peritoneum and bowel: Moderate hiatal hernia. Bowel loops demonstrate normal wall thickness and clotilde héctor. No free fluid or air. Large fecal load. Nodes and vessels: No retroperitoneal or mesenteric adenopathy by size criteria. The aorta is tortuo us and ectatic, but not frankly aneurysmal. The inferior vena cava is unremarkable. Miscellaneous: No ventral hernias. PELVIS: Genitourinary: Bladder wall thickness is normal. Miscellaneous: No inguinal hernias or adenopathy. Uterus is surgically absent. Bones: No suspicious bony lesions. No vertebral body compression fractures. Dextrocurvature of the lumbar spine is centered at L2-L3. IMPRESSION: 1. Continued improvement in splenic subcapsular hematoma, now much smaller, and water density, with n o evidence of rehemorrhage. 2. Large fecal load. 3. No evidence of acute abdominal process. 4. Moderate hiatal hernia. 5. Right nephrolithiasis. Reviewed by: Francisco Tapia MD on 08/02/2021 1:19 PM PDT Approved by: Francisco Tapia MD on 08/02/2021 1:19 PM PDT Station ID: [id number]
[2021-08-02] MEDS: IOVERSOL 320 100 ML VIAL IVP ONE (22:30)
[2021-08-02] MEDS: IOVERSOL 320 50 ML VIAL PO ONE (22:31)
== END 2021-08-02 11:23 | disposition home or self-care (01) ==
LOC: DI 11:22
PROVIDERS: ATTEND Family Medicine
DX: R10.9 Unspecified abdominal pain (principal); S36.00 Unspecified injury of spleen; K44.9 Diaphragmatic hernia without obstruction or gangrene; N20.0 Calculus of kidney
CPT/HCPCS: 74177; Q9967

== ENCOUNTER 2021-10-20 12:48 | Outpatient (CLI) | payer MEDICARE, OTHER | END 2021-10-20 12:49 | disposition EMS.NT | LOC: EMS 12:48 | DX: R42 Dizziness and giddiness (principal); R07.81 Pleurodynia ==

== ENCOUNTER 2021-11-01 08:00 | Outpatient (CLI) | payer MEDICARE, OTHER ==
--- NOTE | 2021-11-02 09:04 | XRAY Report ---
PROCEDURE: Knee 2 View RT INDICATIONS: RIGHT KNEE PAIN / KEEPS GIVING OUT TECHNIQUE: 2 views of the right knee(s) were acquired. COMPARISON: None. FINDINGS: Bones: No fractures or dislocations. Moderate tricompartmental osteoarthritis is seen more prominent in lateral femoral tibial compartment. No suspicious bony lesions. Soft tissues: No significant joint effusion. No suspicious soft tissue calcifications. IMPRESSION: Moderate tricompartment osteoarthritis more prominent in lateral femoral tibial compartm ent. No acute fracture or dislocation. No significant joint effusion. Reviewed by: Ryan Dodson MD on 11/02/2021 9:02 AM PST Approved by: Ryan Dodson MD on 11/02/2021 9:02 AM PST Station ID: [id number]
--- NOTE | 2021-11-02 09:11 | XRAY Report ---
PROCEDURE: Shoulder 2 View LT INDICATIONS: LEFT SHOULDER PAIN S/P FALL TECHNIQUE: 2 views of the shoulder were acquired. COMPARISON: None. FINDINGS: Bones: No fractures or dislocations. Mild to moderate acromioclavicular joint and glenohumeral join t osteophytic changes are seen with joint space narrowing, subchondral sclerosis and marginal osteoph yte formation. No suspicious bony lesions. Visualized ribs appear intact. Soft tissues: No suspicious soft tissue calcifications. IMPRESSION: Mild to moderate left shoulder joint osteoarthritis. No gross acute fracture or dislocat ion. Reviewed by: Ryan Dodson MD on 11/02/2021 9:10 AM PST Approved by: Ryan Dodson MD on 11/02/2021 9:10 AM PST Station ID: [id number]
--- NOTE | 2021-11-02 09:12 | XRAY Report ---
PROCEDURE: Cervical Spine 2 View INDICATIONS: NECK PAIN S/P FALL TECHNIQUE: 4 view(s) of the cervical spine were acquired. COMPARISON: None. FINDINGS: Bones: No fractures or dislocations to the C7-T1 level. Degenerative endplate changes and bilateral facet hypertrophic changes are noted throughout cervical spine more prominent at C4-5 and C5-6 level s. The lateral masses of C1 appear intact on the odontoid view. No suspicious bony lesions. Soft tissues: No prevertebral soft tissue swelling. IMPRESSION: Degenerative disc disease throughout cervical spine. No gross acute cervical spine fract ure or dislocation. Reviewed by: Ryan Dodson MD on 11/02/2021 9:11 AM PST Approved by: Ryan Dodson MD on 11/02/2021 9:11 AM PST Station ID: [id number]
== END 2021-11-01 23:59 ==
LOC: DI.N 08:00
PROVIDERS: ATTEND Family Medicine
DX: M47.812 Spondylosis without myelopathy or radiculopathy, cervical region (principal); M50.321 Other cervical disc degeneration at C4-C5 level; M19.012 Primary osteoarthritis, left shoulder; M17.11 Unilateral primary osteoarthritis, right knee

== ENCOUNTER 2021-11-02 11:04 | Outpatient (CLI) | payer MEDICARE, OTHER ==
[2021-11-02 18:37] LABS: BASOPHILS # (AUTO) 0.1 10^3/uL (0.0-0.1); BASOPHILS % (AUTO) 0.7 %; EOSINOPHILS % (AUTO) 0.4 %; HCT - HEMATOCRIT 41.5 % (37.0-47.0); HGB - HEMOGLOBIN 12.9 g/dL (12.0-16.0); LYMPHOCYTES # (AUTO) 1.6 10^3/uL (1.5-3.5); LYMPHOCYTES % (AUTO) 20.5 %; MEAN CORPUSCULAR HEMOGLOBIN 26.8 pg (27.0-31.0); MEAN CORPUSCULAR HGB CONC 31.1 g/dL (32.0-36.0); MEAN CORPUSCULAR VOLUME 86.3 fL (81.0-99.0); MONOCYTES # (AUTO) 0.5 10^3/uL (0.0-1.0); MONOCYTES % (AUTO) 6.8 %; NEUTROPHILS # (AUTO) 5.5 10^3/uL (1.5-6.6); NEUTROPHILS % (AUTO) 71.5 %; PLT - PLATELET COUNT 335 10^3/uL (130-450); RED BLOOD COUNT 4.81 10^6/uL (4.20-5.40); WHITE BLOOD COUNT 7.7 x10^3/uL (4.8-10.8)
[2021-11-02 18:52] LABS: ALBUMIN 4.5 g/dL (3.2-5.5); ALBUMIN/GLOBULIN RATIO 1.5 (1.0-2.2); BILIRUBIN,TOTAL 0.6 mg/dL (0.2-1.0); CALCIUM 10.1 mg/dL (8.5-10.3); CREATININE 0.7 mg/dL (0.4-1.0); TOTAL PROTEIN 7.5 g/dL (6.7-8.2)
[2021-11-02 18:56] LABS: THYROID STIMULATING HORMONE 1.13 uIU/mL (0.34-5.60)
[2021-11-02 19:02] LABS: FERRITIN 10.6 ng/mL (11.0-306.8)
== END 2021-11-02 11:05 | disposition home or self-care (01) ==
LOC: LAB.N 11:04
PROVIDERS: ATTEND Family Medicine
DX: D50.9 Iron deficiency anemia, unspecified (principal); R29.6 Repeated falls
CPT/HCPCS: 36415; 80053; 82728; 83540; 84443; 84466; 85025

== ENCOUNTER 2021-11-12 07:47 | Outpatient (CLI) | payer MEDICARE, OTHER ==
[2021-11-12] MEDS ORDERED: GADOBUTROL 7.5 MMOL/7.5 ML VIAL ONE (08:38)
--- NOTE | 2021-11-12 09:05 | MRI Report ---
PROCEDURE: Brain W/WO INDICATIONS: FREQUENT FALLS, GAIT ATAXIA CONTRAST: IV CONTRAST: Gadavist ml: 6.5 TECHNIQUE: Noncontrast axial T1 spin echo, axial T2 fast spin echo, sagittal and axial FLAIR, coronal T2 fast sp in echo, axial gradient echo, axial diffusion and ADC through the brain. After the administration of contrast, axial and coronal T1 spin echo with fat saturation through the brain. COMPARISON: None. FINDINGS: Image quality: Excellent. CSF spaces: Basal cisterns are patent. No extra-axial fluid collections. Ventricles are normal in size and shape. Brain: No midline shift. No intracranial bleeds or masses. No abnormal intracranial enhancement. There is cerebral volume loss for age. Parenchymal signal intensity is within normal limits. The brai nstem appears normal. Diffusion-weighted images demonstrate no acute ischemic insults. No chronic i schemic insults. Normal intravascular flow voids are present. Skull and face: Calvarial marrow is normal in signal. Orbits appear normal. Sinuses: Sinuses and mastoids appear clear. IMPRESSION: 1. Mild volume loss. 2. No acute process. No recent infarct. Reviewed by: Aurea Wadsworth MD on 11/12/2021 9:04 AM [facility] Approved by: Aurea Wadsworth MD on 11/12/2021 9:04 AM PST Station ID: [id number]
[2021-11-12] MEDS ORDERED: GADOBUTROL 7.5 MMOL/7.5 ML VIAL IVP ONE (09:33)
== END 2021-11-12 07:48 | disposition home or self-care (01) ==
LOC: DI 07:47
PROVIDERS: ATTEND Family Medicine
DX: R26.0 Ataxic gait (principal); R29.6 Repeated falls
CPT/HCPCS: 70553; A9585

== ENCOUNTER 2022-11-19 20:39 | Outpatient (CLI) | payer MEDICARE, OTHER | END 2022-11-19 20:40 | disposition critical access hospital (66) | LOC: EMS 20:39 | DX: R53.1 Weakness (principal) | CPT/HCPCS: A0425; A0427 ==

== ENCOUNTER 2022-11-19 20:58 | Emergency (ER) | payer MEDICARE, OTHER ==
--- NOTE | 2022-11-19 21:14 | ED Physician Documentation ---
History of Present Illness - Stated complaint Stated Complaint: WEAKNESS, DIZZY - Chief complaint Chief Complaint: General - Additonal information Additional information: Patient is a 71-year-old female presenting with diffuse chest and abdominal pain. She reports that a few hours ago she "ate a salad" and began developing severe pain. She reports that she has severe pain after eating or drinking anything and has for several years after "the colonoscopy where they shredded my spleen". She reports a history of chronic constipation because "they forced me to take opiates for 16 years".Reports occasional nausea and vomiting. States that she does not wish narcotic pain medication under any circumstances. She has a past medical history significant for colonoscopy that was complicated by splenic laceration that occurred in 2020. She did report that the procedure was performed here at our facility but documentation shows that she was treated for at [facility] at that time. Review of Systems Constitutional: denies: Fever Eyes: denies: Loss of vision Ears: denies: Loss of hearing Nose: denies: Rhinorrhea / runny nose Throat: denies: Dental pain / toothache Cardiac: reports: Chest pain / pressure GI: reports: Abdominal Pain, Nausea, Vomiting, Constipation : denies: Dysuria PD PAST MEDICAL HISTORY - Past Medical History Cardiovascular: Hypertension Respiratory: Asthma Endocrine/Autoimmune: None GI: Chronic constipation : Chronic bladder infection, Kidney stones HEENT: Chronic sinusitis Psych: Anxiety, Panic attacks, Post traumatic stress disorder Musculoskeletal: Osteoarthritis, Chronic back pain Derm: None - Past Surgical History Past Surgical History: Yes Ortho: Rotator cuff repair, Spine surgery, Other /[employer]: Hysterectomy HEENT: Myringotomy (tubes), Tonsil/Adenoidectomy, Other - Present Medications Home Medications: Ambulatory Orders Medication Instructions Recorded Confirmed Albuterol Sulfate [Albuterol 2 puffs INH Q6HR PRN 03/23/15 05/01/21 Sulfate Hfa] Fluticasone [Flonase] 2 spr OPHELIA DAILY 03/23/15 05/01/21 Gabapentin 900 mg PO DAILY 03/23/15 05/01/21 Montelukast Sodium [Singulair] 10 mg PO DAILY 03/23/15 05/01/21 Omeprazole [PriLOSEC] 1 cap PO DAILY 03/23/15 05/01/21 Ketoconazole 1 applic TP BID PRN 02/19/17 05/01/21 Cyclobenzaprine HCl 1 tab PO DAILY 01/07/18 05/01/21 Meloxicam 1 tab PO DAILY 01/07/18 05/01/21 Felodipine [Felodipine ER] 5 mg ORAL DAILY 03/22/18 Lidocaine Patch 5% [Lidoderm Patch] 1 each TOP DAILY PRN #10 patch 03/22/18 Docusate Sodium 100Mg Capsule 1 tab PO DAILY 05/01/21 05/01/21 [Colace 100Mg Capsule] Magnesium Hydroxide [Milk of PO DAILY 05/01/21 Magnesia] Methylcellulose (with Sugar) 1 PO DAILY 05/01/21 [Citrucel Powder] polyethylene glycoL 3350 [Miralax] 1 PO BID 05/01/21 Lactulose [Generlac] 10 gm PO TID PRN #300 ml 05/25/21 Pantoprazole Sodium [Protonix] 40 mg PO DAILY #30 gm 11/20/22 - Allergies Allergies/Adverse Reactions: Allergies Allergy/AdvReac Type Severity Reaction Status Date / Time almond Allergy Anaphylaxis Verified 11/19/22 21:06 papaya Allergy Anaphylaxis Verified 11/19/22 21:06 ibuprofen [From Motrin] AdvReac Headache Verified 11/19/22 21:06 - Social History Does the pt smoke?: No Smoking Status: Never smoker Does the pt drink ETOH?: No Does the pt have substance abuse?: No - Immunizations Immunizations are current?: Yes PD ED PE NORMAL - Vitals Vital signs reviewed: Yes - General General: Alert and oriented X 3, Well developed/nourished - HEENT HEENT: Atraumatic, PERRL, EOMI, Ears normal, Moist mucous membranes - Neck Neck: Supple, no meningeal sign, No bony TTP, No adenopathy, Thyroid normal - Cardiac Cardiac: RRR, No murmur, No gallop, No rub, Strong equal pulses - Respiratory Respiratory: No respiratory distress, Clear bilaterally - Abdomen Abdomen: Normal bowel sounds, Non tender - Female Female : Deferred - Rectal Rectal: Deferred - Back Back: No CVA TTP - Derm Derm: Normal color - Extremities Extremities: No deformity - Neuro Neuro: Alert and oriented X 3, certified 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 assistant 2-12 intact, No motor deficit Results - Vitals Vitals: Vital Signs - 24 hr 11/19/22 11/19/22 11/19/22 21:03 21:09 21:26 Temperature 36.8 C Heart Rate 71 65 69 Respiratory 18 19 20 Rate Blood Pressure 204/98 H O2 Saturation 100 100 97 11/19/22 23:00 Temperature Heart Rate 65 Respiratory 16 Rate Blood Pressure 183/75 H O2 Saturation 100 Oxygen O2 Source Room air - EKG (time done) 2106 Rate: Rate (enter#) (63) Rhythm: NSR Seibert: Normal Intervals: Normal CT QRS: Normal Ischemia: Normal ST segments, Non specific changes, Other (Moderate motion artifact) Computer interpretation: Agree with computer - Labs Labs: Laboratory Tests 11/19/22 11/19/22 11/19/22 21:18 21:28 21:28 WBC 6.0 RBC 4.37 Hgb 9.5 L Hct 32.5 L MCV 74.4 L MCH 21.7 L MCHC 29.2 L RDW 16.4 H Plt Count 363 MPV 9.1 Neut # (Auto) 4.2 Lymph # (Auto) 1.2 L Sibley # (Auto) 0.5 Eos # (Auto) 0.0 Baso # (Auto) 0.1 Absolute Nucleated RBC 0.00 Nucleated RBC % 0.0 Sodium Potassium Chloride Carbon Dioxide Anion Gap BUN Creatinine Estimated GFR (MDRD) Glucose Lactic Acid 0.9 Calcium Total Bilirubin AST ALT Alkaline Phosphatase Troponin I High Sens Total Protein Albumin Globulin Albumin/Globulin Ratio Lipase Urine Color YELLOW Urine Clarity CLEAR Urine pH 7.5 Ur Specific [place] 1.015 Urine Protein NEGATIVE Urine Glucose (UA) NEGATIVE Urine Ketones NEGATIVE Urine Occult Blood NEGATIVE Urine Nitrite NEGATIVE Urine Bilirubin NEGATIVE Urine Urobilinogen 0.2 (NORMAL) Ur Leukocyte Esterase NEGATIVE Ur Microscopic Review NOT INDICATED Urine Culture Comments NOT INDICATED Urine Opiates Screen NEGATIVE Ur Oxycodone Screen NEGATIVE Urine Methadone Screen NEGATIVE Ur Propoxyphene Screen NEGATIVE Ur Barbiturates Screen NEGATIVE Ur Tricyclics Screen NEGATIVE Ur Phencyclidine Scrn NEGATIVE Ur Amphetamine Screen NEGATIVE U Methamphetamines Scrn NEGATIVE U Benzodiazepines Scrn NEGATIVE Urine Cocaine Screen NEGATIVE U Cannabinoids Screen NEGATIVE Ethyl Alcohol SARS-CoV-2 (PCR) 11/19/22 11/19/22 11/19/22 21:28 21:28 21:28 WBC RBC Hgb Hct MCV MCH MCHC RDW Plt Count MPV Neut # (Auto) Lymph # (Auto) Sibley # (Auto) Eos # (Auto) Baso # (Auto) Absolute Nucleated RBC Nucleated RBC % Sodium 137 Potassium 4.0 Chloride 102 Carbon Dioxide 22 Anion Gap 13.0 BUN 15 Creatinine 0.8 Estimated GFR (MDRD) 71 L Glucose 106 H Lactic Acid Calcium 9.9 Total Bilirubin 0.5 AST 20 ALT 16 Alkaline Phosphatase 115 Troponin I High Sens 9.6 Total Protein 7.1 Albumin 4.1 Globulin 3.0 Albumin/Globulin Ratio 1.4 Lipase 45 Urine Color Urine Clarity Urine pH Ur Specific [place] Urine Protein Urine Glucose (UA) Urine Ketones Urine Occult Blood Urine Nitrite Urine Bilirubin Urine Urobilinogen Ur Leukocyte Esterase Ur Microscopic Review Urine Culture Comments Urine Opiates Screen Ur Oxycodone Screen Urine Methadone Screen Ur Propoxyphene Screen Ur Barbiturates Screen Ur Tricyclics Screen Ur Phencyclidine Scrn Ur Amphetamine Screen U Methamphetamines Scrn U Benzodiazepines Scrn Urine Cocaine Screen U Cannabinoids Screen Ethyl Alcohol < 5.0 SARS-CoV-2 (PCR) 11/19/22 21:36 WBC RBC Hgb Hct MCV MCH MCHC RDW Plt Count MPV Neut # (Auto) Lymph # (Auto) Sibley # (Auto) Eos # (Auto) Baso # (Auto) Absolute Nucleated RBC Nucleated RBC % Sodium Potassium Chloride Carbon Dioxide Anion Gap BUN Creatinine Estimated GFR (MDRD) Glucose Lactic Acid Calcium Total Bilirubin AST ALT Alkaline Phosphatase Troponin I High Sens Total Protein Albumin Globulin Albumin/Globulin Ratio Lipase Urine Color Urine Clarity Urine pH Ur Specific [place] Urine Protein Urine Glucose (UA) Urine Ketones Urine Occult Blood Urine Nitrite Urine Bilirubin Urine Urobilinogen Ur Leukocyte Esterase Ur Microscopic Review Urine Culture Comments Urine Opiates Screen Ur Oxycodone Screen Urine Methadone Screen Ur Propoxyphene Screen Ur Barbiturates Screen Ur Tricyclics Screen Ur Phencyclidine Scrn Ur Amphetamine Screen U Methamphetamines Scrn U Benzodiazepines Scrn Urine Cocaine Screen U Cannabinoids Screen Ethyl Alcohol SARS-CoV-2 (PCR) NOT DETECTED PD Medical Decision Making - ED course Complexity details: reviewed old records, reviewed results, re-evaluated patient, considered differential, d/w patient ED course: Patient is 71-year-old female presenting to the emergency department with diffuse chest and abdominal pain. Endorse for history of pain associated with any food or fluid intake ongoing for years. Associated this with injury that occurred during colonoscopy in 2020. Afebrile, hemodynamically stable. Patient demonstrated signs of distress such as periodically thrashing in bed but refused all medications for pain narcotic or otherwise. I did obtain comprehensive labs which Were generally within normal limits or nonactionable. Patient did notably have a mild microcytic anemia however this does not appear to be an acute problem. CTA chest did not show any pulmonary emboli and demonstrated a likely benign pulmonary nodule. CT the abdomen pelvis showed some wall thickening of the small intestine likely indicating mild enteritis and signs of constipation. Patient was reevaluated on multiple occasions. Was offered medication for symptomatic management which was declined on multiple occasions. She did request pickles or pickle juice and I explained that this is not something that we have available in the emergency department. She also requested packets of mustard and she was provided with A packet of mustard with only minimal symptomatic relief. At this time there does not appear to be any life-threatening cause for the patient's condition nor is there hospitalized above diagnosis. She was offered medication for symptomatic management including Protonix, medication to act as bowel regimen, and medication for pain control all of which were refused. Discharged with encouragement to follow-up with primary care or return as needed. Departure - Departure Disposition: 01 Home, Self Care Clinical Impression: Enteritis Constipation Qualifiers: Constipation type: unspecified constipation type Qualified Code(s): K59.00 - Constipation, unspecified Instructions: ED Constipation Prescriptions: Pantoprazole Sodium [Protonix] 40 mg PO DAILY #30 gm Comments: Thank you for allowing us the opportunity to care for you this evening at [facility]. Today in the emergency department you were diagnosed with acute enteritis, a form of inflammation of the small bowel as well as chronic constipation. Additionally you appear to be having a low level anemia which is not a new finding In comparison to blood work that has been performed in the past. The remainder of your tests including your blood work, EKG, urine test and the CT scans of your chest, abdomen and pelvis were all very reassuring. There does not appear to be a life-threatening cause for your symptoms today. You refused most of the interventions offered in the emergency department including medications to help with pain and to help with your chronic constipation. As we discussed you were given a dose of Protonix, and antiacid medication which can be beneficial in the setting of enteritis and I have sent a prescription for more of this medication to your preferred pharmacy, [facility] in [place]. It is important that you follow-up with your primary care doctor concerning your ER visit as soon as possible. If it anytime you have new or worsening symptoms you are always welcome to return to the emergency department for reevaluation.
[2022-11-19 21:33] LABS: MUDS CUTOFF CONCENTRATIONS CUTOFF CONC BELOW:
[2022-11-19 21:35] LABS: BILIRUBIN,URINE NEGATIVE (NEGATIVE); GLUCOSE, URINE (UA) NEGATIVE (NEGATIVE); KETONES,URINE (UA) NEGATIVE (NEGATIVE); LEUKOCYTE ESTERASE, URINE NEGATIVE (NEGATIVE); NITRITE,URINE NEGATIVE (NEGATIVE); OCCULT BLOOD,URINE NEGATIVE (NEGATIVE); PH,URINE 7.5 PH (5.0-7.5); PROTEIN,URINE NEGATIVE (NEGATIVE); UROBILINOGEN,URINE 0.2 (NORMAL) E.U./dL (NORMAL)
[2022-11-19 21:35] LABS: BASOPHILS # (AUTO) 0.1 10^3/uL (0.0-0.1); BASOPHILS % (AUTO) 0.8 %; EOSINOPHILS % (AUTO) 0.3 %; HCT - HEMATOCRIT 32.5 % (37.0-47.0); HGB - HEMOGLOBIN 9.5 g/dL (12.0-16.0); LYMPHOCYTES # (AUTO) 1.2 10^3/uL (1.5-3.5); LYMPHOCYTES % (AUTO) 19.8 %; MEAN CORPUSCULAR HEMOGLOBIN 21.7 pg (27.0-31.0); MEAN CORPUSCULAR HGB CONC 29.2 g/dL (32.0-36.0); MEAN CORPUSCULAR VOLUME 74.4 fL (81.0-99.0); MEAN PLATELET VOLUME 9.1 fL (7.9-10.8); MONOCYTES # (AUTO) 0.5 10^3/uL (0.0-1.0); MONOCYTES % (AUTO) 8.2 %; NEUTROPHILS # (AUTO) 4.2 10^3/uL (1.5-6.6); NEUTROPHILS % (AUTO) 70.6 %; PLT - PLATELET COUNT 363 10^3/uL (130-450); RED BLOOD COUNT 4.37 10^6/uL (4.20-5.40); RED CELL DISTRIBUTION WIDTH 16.4 % (12.0-15.0)
[2022-11-19 21:37] LABS: CLARITY,URINE CLEAR (CLEAR)
[2022-11-19 21:46] LABS: AMPHETAMINE SCREEN,URINE NEGATIVE (NEGATIVE); BARBITURATE SCREEN,UR NEGATIVE (NEGATIVE); BENZODIAZEPINES SCREEN, URINE NEGATIVE (NEGATIVE); COCAINE SCREEN URINE NEGATIVE (NEGATIVE); METHADONE SCREEN, URINE NEGATIVE (NEGATIVE); METHAMPHETAMINES SCREEN, URINE NEGATIVE (NEGATIVE); OPIATE SCREEN, URINE NEGATIVE (NEGATIVE); OXYCODONE SCREEN, URINE NEGATIVE (NEGATIVE); PROPOXYPHENE SCREEN, URINE NEGATIVE (NEGATIVE); THC CANNABINOID SCREEN, URINE NEGATIVE (NEGATIVE); TRICYCLIC ANTIDEPRESSANT,URINE NEGATIVE (NEGATIVE)
[2022-11-19 23:07] LABS: ALBUMIN 4.1 g/dL (3.2-5.5); ALBUMIN/GLOBULIN RATIO 1.4 (1.0-2.2); BILIRUBIN,TOTAL 0.5 mg/dL (0.2-1.0); CALCIUM 9.9 mg/dL (8.5-10.3); CREATININE 0.8 mg/dL (0.4-1.0); TOTAL PROTEIN 7.1 g/dL (6.7-8.2)
[2022-11-19] MEDS ORDERED: iohexoL-300 100 ML VIAL IVP ONE (23:46)
--- NOTE | 2022-11-20 00:52 | CT Report ---
PROCEDURE: ANGIO CHEST W/WO INDICATIONS: Rule out PE CONTRAST: Omni 300 100ml TECHNIQUE: After the administration of intravenous contrast, 2 mm axial images were acquired from the pulmonary apices to the posterior costophrenic angles during the arterial phase. In addition, 1 mm lung kernel and 5 mm soft tissue kernel reconstructions were performed. 3-dimensional coronal oblique maximum int ensity projection (MIP) reformats, 8 mm axial MIP, and 5 mm coronal and sagittal MPR reformats were t hen performed through the thorax. For radiation dose reduction, the following was used: automated exp osure control, adjustment of mA and/or kV according to patient size. COMPARISON: None. Correlation made to chest CT 07/16/2017, CT abdomen and pelvis 06/25/2019 FINDINGS: Image quality: Excellent. Pulmonary arteries: Pulmonary arteries are normal in size, and demonstrate no intraluminal filling d efects to suggest central pulmonary embolism. Lungs and pleura: Mild centrilobular emphysematous changes in upper and lower lobes. There is eventr ation of the right hemidiaphragm with adjacent right lower lobe atelectasis. Tiny subpleural lingular nodule, part solid 5 mm posterolateral subpleural left lower lobe nodule, (3/169). No pleural effu sions or pneumothorax. Central and peripheral airways are patent. Mediastinum: There is a moderate-sized hiatal hernia. Heart size is normal, without pericardial effu azam. No mediastinal or hilar adenopathy. Thoracic aorta is normal in caliber and enhancement. Bones and chest wall: No suspicious bony lesions. Ribs and thoracic spine appear intact throughout. No axillary or supraclavicular adenopathy. The thyroid is normal in size and there are no incident al findings. Abdomen: CT abdomen was performed concurrently and will be dictated separately. IMPRESSION: 1. No pulmonary embolus. 2. Mild centrilobular emphysema. 3. Posterolateral left lower lobe lung nodule, stable to smaller since 2017, benign. 4. Moderate-sized hiatal hernia which is not new. Reviewed by: Reba Abarca MD on 11/20/2022 1:02 AM PST Approved by: Reba Abarca MD on 11/20/2022 1:02 AM PST Station ID: [id number]
--- NOTE | 2022-11-20 00:59 | CT Report ---
PROCEDURE: ABDOMEN/PELVIS W INDICATIONS: diffuse chest and abd pain CONTRAST: Omni 300 100ml TECHNIQUE: After the administration of IV contrast, 5 mm thick sections acquired from the diaphragms to the symp hysis. 5 mm thick coronal and sagittal reformats were acquired. For radiation dose reduction, the f ollowing was used: automated exposure control, adjustment of mA and/or kV according to patient size. COMPARISON: Most recent CT 08/02/2021 FINDINGS: Image quality: Excellent. ABDOMEN: Lung bases: Lung bases are clear. Heart size is normal. Chronic moderate-sized hiatal hernia. Solid organs: Liver and spleen are normal in size and enhancement. Gallbladder is completely decomp ressed. Biliary system is non dilated. Pancreas enhances normally. No adrenal nodules. Kidneys de monstrate normal size and enhancement, without hydronephrosis. The right kidney is displaced superio rly. There is a nonobstructing 3 mm upper pole calculus. An exophytic cyst arises from the lateral le ft kidney upper pole. No visible hydroureter. Peritoneum and bowel: Aside from herniated proximal stomach, the distal stomach is normal. There is no fluid in the hernia sac or adjacent inflammation. There are a few loops of central small bowel whi ch demonstrate mild wall thickening and there are fluid-filled, but not significantly distended. Ther e is increased quantity of solid stool throughout all loops of colon. No wall thickening or inflammat ion. Bowel loops demonstrate normal wall thickness and caliber. No free fluid or air. Nodes and vessels: No retroperitoneal or mesenteric adenopathy by size criteria. Aorta and inferior vena cava are normal in size. Duplicated IVC. Tortuous proximal abdominal aorta with moderate ather osclerosis. Miscellaneous: No ventral hernias. PELVIS: Genitourinary: Bladder wall thickness is normal. Uterus and ovaries are not well seen. Miscellaneous: No inguinal hernias or adenopathy. Mild posterior pelvic floor prolapse. Bones: No suspicious bony lesions. Severe disc degeneration L2-3. Prominent endplate spurs. No verte bral body compression fractures. IMPRESSION: 1. A few mildly prominent centralized small bowel loops with slight wall thickening may indicate ente ritis. 2. Increased solid stool burden suggesting constipation. Excellent 3. Chronic moderate size hiatal hernia. Reviewed by: Reba Abarca MD on 11/20/2022 1:08 AM PST Approved by: Reba Abarca MD on 11/20/2022 1:08 AM PST Station ID: [id number]
[2022-11-20] MEDS ORDERED: PANTOPRAZOLE 40 MG VIAL IVP STA (01:15)
[2022-11-20 02:42] VITALS: BP 170/73
== END 2022-11-20 03:00 | disposition home or self-care (01) ==
LOC: EDUNIT# → ED 20:58
DX: K59.00 Constipation, unspecified (principal); K52.9 Noninfective gastroenteritis and colitis, unspecified; Z20.822 Contact with and (suspected) exposure to COVID-19
CPT/HCPCS: 36415; 71275; 74177; 80053; 80306; 81003; 83605; 83690; 84484; 85025; 87635; 93005; 96374; 99283; 99284; G0480; 80320; 81001; 87086

== ENCOUNTER 2025-09-26 17:45 | Observation (INO) ==
--- OUTSIDE RECORDS SUMMARY | 2025-09-26 18:16 | EXTERNAL MEDICAL SUMMARY RPT | Continuity of Care Document ---
Author Organization [facility] Address [address] [place] [id number] Phone Allergies and Intolerances date description facility reaction severity 2025-06-07 10:00 [id number]^ibuprofen ^^From Motrin^^allergy.id [facility] Headache (no severity) 2025-09-24 10:00 [id number]^ibuprofen ^^From Motrin^^allergy.[facility] Headache (no severity) 2025-09-26 10:00 [id number]^ibuprofen ^^From Motrin^^allergy.[facility] Headache (no severity) 2025-06-07 10:00 [id number]^papaya^^p apaya^^ allergy.id [facility] Anaphylaxis (no severity) 2025-09-24 10:00 [id number]^papaya^^p apaya^^ allergy.id [facility] Anaphylaxis (no severity) 2025-09-26 10:00 [id number]^papaya^^p apaya^^ allergy.id [facility] Anaphylaxis (no severity) 2025-06-07 10:00 [id number]^almond^^a lmond^^ allergy.id [facility] Anaphylaxis (no severity) 2025-09-24 10:00 [id number]^almond^^a lmond^^ allergy.id [facility] Anaphylaxis (no severity) 2025-09-26 10:00 [id number]^almond^^a lmond^^ allergy.id [facility] Anaphylaxis (no severity) Social History date description facility
[2025-09-26 19:18] LABS: HCT - HEMATOCRIT 20.6 % (37.0-47.0); MEAN PLATELET VOLUME 8.6 fL (7.9-10.8); NRBC ABSOLUTE COUNT (AUTO) 0.00 x10^3/uL; NUCLEATED RED BLOOD CELLS AUTO 0.0 /100WBC; PLT - PLATELET COUNT 383 10^3/uL (130-450); RED CELL DISTRIBUTION WIDTH 17.4 % (12.0-15.0)
[2025-09-26 19:20] LABS: HGB - HEMOGLOBIN 5.6 g/dL (12.0-16.0)
--- NOTE | 2025-09-26 19:34 | CT Report ---
PROCEDURE: CT Head WO INDICATIONS: dizzy TECHNIQUE: CT of the head was performed, without intravenous contrast. Reformats: Coronal and sagittal. For radiation dose reduction, the following was used: automated exposure control, adjustment of mA and/or kV according to patient size. COMPARISON: None. FINDINGS: Image quality: Diagnostic. CSF spaces: Basal cisterns are patent. No extra-axial fluid collections. Ventricles are normal in size and shape. Brain: No midline shift. No intracranial mass effect or hemorrhage. Hawkins- white matter interface is normal. Skull and face: Calvarium and visualized facial bones are intact, without suspicious lesions. Sinuses: Visualized sinuses and mastoids are clear. IMPRESSION: No acute intracranial pathology. Reviewed by: Ru Posada MD on 09/26/2025 7:31 PM [facility] Approved by: Ru Posada MD on 09/26/2025 7:31 PM [facility] Station ID: [id number]
[2025-09-26 19:39] LABS: ALT ALANINE AMINOTRANSFERASE 9.0 IU/L (10-60); AST ASPARTATE AMINOTRANSFERASE 14.0 IU/L (10-42); BUN - BLOOD UREA NITROGEN 13.0 mg/dL (6-20); CARBON DIOXIDE - CO2 24.0 mmol/L (21-32); CREATININE 0.6 mg/dL (0.6-1.3); GFR - MDRD 98.0 (>89)
--- NOTE | 2025-09-26 19:43 | ED Physician Documentation ---
History of Present Illness Stated complaint Stated Complaint: DIZZINESS Chief complaint Chief Complaint: General History obtained from History obtained from: Patient History of Present Illness Pain level max: 0 Pain level now: 0 Additonal information Additional information: Patient is a 74-year-old female who presents to the emergency department complaining of dizziness. She states she has been feeling lightheaded and dizzy. She thinks that it started when she started a new medication. She also had shingles on the right side of her chest, she states she is not taking her valacyclovir as prescribed because she cannot remember to take it. No fevers. No chills. No dark stools or blood in the stool. Review of Systems Constitutional Denies: Fever or Chills Ears, nose, mouth, and throat Denies: Neck pain Cardiovascular Denies: chest pain or shortness of breath with exertion Respiratory Denies: Shortness of breath or Cough Gastrointestinal Denies: Abdominal pain, Nausea or Vomiting Musculoskeletal Denies: Back pain or Neck pain Integumentary/Breast Denies: Rash Meds/Allgy Home Medications Ambulatory Orders Medication Instructions Recorded Confirmed albuterol sulfate 90 mcg/actuation 2 puff inhalation Q 6HR PRN Asthma 03/23/15 06/07/25 aerosol inhaler fluticasone propionate 50 2 spr intranasal DAILY 03/2306/07/25 mcg/actuation nasal spray,suspension gabapentin 300 mg capsule 900 mg PO DAILY 03/23/1511/30 montelukast 10 mg tablet 10 mg PO DAILY 03/23/1511/30 (Singulair) omeprazole 20 mg capsule,delayed 1 cap PO DAILY 06/07/25 release ketoconazole 2 % topical cream 1 applic TP BID PRN As Needed Per 02/19/17 06/07/25 Provider Orders cyclobenzaprine 5 mg tablet 1 tab PO DAILY 01/07/18 meloxicam 7.5 mg tablet 1 tab PO DAILY 01/07/1811/30 felodipine 5 mg tablet,extended 5 mg ORAL DAILY 06/07/25 release 24 hr lidocaine 5 % topical patch 1 ea topical DAILY PRN Phill n #10 03/22/18 06/07/25 patches docusate sodium 100 mg capsule 1 tab PO DAILY 05/01/21 06/07/25 (Stool Softener) magnesium hydroxide 2,400 mg/10 mL PO DAILY 05/01/21 0 06/07/25 oral suspension (Milk Of Magnesia Concentrated) methylcellulose (with sugar) oral 1 PO DAILY 05/01/21 06/07/25 powder (Citrucel (sucrose) oral powder) polyethylene glycol 3350 17 gram 1 PO BID 05/01/2111/30 oral powder packet lactulose 10 gram/15 mL oral 10 g (15 mL) PO TID PRN 0 05/25/21 06/07/25 solution (Generlac) constipation #300 mL pantoprazole 40 mg granules 40 mg PO DAILY #30 grams 0 11/20/22 06/07/25 delayed-release for susp in packet (Protonix) Cymbalta 20 mg capsule,delayed 20 mg PO DAILY #60 caps 12/31/24 06/07/25 release (duloxetine) diclofenac sodium 1 % topical gel 2 g topical QID #100 grams 09/24/25 09/24/25 (Arthritis Pain (diclofenac)) valacyclovir 1 gram tablet 1,000 mg PO TID 7 days #21 tabs 09/24/25 09/24/25 Allergies Allergies Allergy/AdvReac Type Severity Reaction Status Date / Time almond Allergy Anaphylaxis Verified 09/26/25 17:59 papaya Allergy Anaphylaxis Verified 09/26/25 17:59 ibuprofen (From Motrin) AdvReac Headache Verified 09/26/25 17:59 PFSH Active Problems All Active Problems (Updated 09/26/25 @ 21:35 by Nolan Laureano DNP) Cognitive and behavioral changes (Acute) Iron deficiency anemia (Acute) Symptomatic anemia (Acute) Shingles (Acute) BMI 27.0-27.9,adult (Acute) HTN (hypertension) (Acute) Chronic neck pain (Acute) Chronic left shoulder pain (Acute) Social History Social History (Updated 06/11/25 @ 15:08 by Jitendra Mancilla PA-C) Smoking Status: Smoker with current status unk How many cigarettes a day do you smoke? (20 cigarettes=1 Pk): 15 Do you dip or chew tobacco?: No Patient requests smoking cessation consult: No Initiate information on smoking cessation: No Do you feel safe in your home environment?: Yes History of physical, verbal, emotional, or financial abuse?: No POLST Patient has POLST: No Exam Exam Vital Signs: Vital Signs x48h Temp Pulse Resp BP Pulse Ox 09/26/25 19:57 77 99 09/26/25 17:55 36.6 C 73 18 166/57 H 98 Constitutional normal general appearance and no apparent distress HENMT oropharynx normal moist mucous membranes Eyes PERRL Neck/C-Spine visual inspection normal Chest Rash on the right side of the chest, consistent with shingles Respiratory breath sounds equal bilaterally, normal respiratory effort and clear to auscultation bilaterally Cardiovascular normal heart rate noted and regular rhythm noted Gastrointestinal abdomen normal to inspection, abdomen soft to palpation, nontender to palpation and nondistended Genitourinary no CVA tenderness Extremities no edema Neurology speech normal Psychiatry mental status grossly normal and oriented x3 Skin skin color normal Results Vitals Vitals: Vital Signs - 24 hr 09/26/25 17:55 09/26/25 19:57 Temperature 36.6 C Temperature Source Oral Pulse Rate 73 77 Respiratory Rate 18 Blood Pressure 166/57 H O2 Saturation 98 99 O2 Source Room air Pain Intensity 8 Oxygen O2 Source Room air Labs Labs: Laboratory Tests 09/26/25 09/26/25 19:05 19:30 WBC 4.0 L RBC 3.14 L Hgb 5.6 L* Hct 20.6 L MCV 65.6 L MCH 17.8 L MCHC 27.2 L RDW 17.4 H Plt Count 383 MPV 8.6 Neut # (Auto) 2.3 Lymph # (Auto) 1.3 L [place] # (Auto) 0.4 Eos # (Auto) 0.0 Baso # (Auto) 0.0 Absolute Nucleated RBC 0.00 Nucleated RBC % 0.0 Sodium 139 Potassium 4.1 Chloride 109 Carbon Dioxide 24 Anion Gap 6.0 BUN 13 Creatinine 0.6 Estimated GFR (MDRD) 98 Glucose 78 Calcium 8.8 Iron < 10 L TIBC 483 H % Saturation TNP Transferrin 345 Total Bilirubin 0.2 AST 14 ALT 9 L Alkaline Phosphatase 123 H Total Protein 5.9 L Albumin 3.7 Globulin 2.2 Albumin/Globulin Ratio 1.7 Blood Type O POSITIVE Antibody Screen NEGATIVE Crossmatch IS Only See Detail Rads (name of study) ct abd/pelvis: Relevant Findings:: Final report received PD Medical Decision Making ED course Complexity details: reviewed results, re-evaluated patient, considered differential, d/w patient and d/w solutions consultant ED course: Patient has a shingles rash to the right side of the chest. Her laboratory testing shows a significant anemia, hemoglobin of 5. CT abdomen pelvis did not show any acute abnormalities. She states that she has a longstanding history of iron deficiency and her iron level here is 0. She is symptomatic from the anemia. She states that she has had colonoscopies in the past that did not show any acute abnormalities. She states that she does not have any active blood in the stool or dark or tarry stools. Not on blood thinners. Discussed with Dr. Jules, general surgery on-call who recommends admission to the hospitalist service and they can consult her if needed. Rectal exam in the emergency department does not show any stool in the rectal vault. Discussed with the hospitalist who accepts for transfusion. This document was made in part using voice recognition software. While efforts are made to proofread this document, sound alike and grammatical errors may occur. Discharge Plan Discharge Patient Disposition: [facility] DC/Xfer Condition: Stable Clinical Impression: Symptomatic anemia Interventions: ED Admission Assessment Last Done: 09/26/25 21:55 Vitals documented within 30 minutes of discharge?: Yes
--- NOTE | 2025-09-26 20:56 | CT Report ---
PROCEDURE: CT Abdomen/Pelvis W INDICATIONS: anemia CONTRAST: Omni 300 100ml TECHNIQUE: After the administration of intravenous contrast, a CT scan of the abdomen and pelvis was performed. Images were recorded and evaluated at appropriate window settings. Reformats: coronal and sagittal. For radiation dose reduction, the following was used: automated exposure control, adjustment of mA and/or kV according to patient size. COMPARISON: 11/19/2022 FINDINGS: Image quality: Diagnostic Lower chest: Bilateral Bochdalek's hernias, containing fat and parts of kidney Moderate hiatal hernia also seen. Scattered scarring and atelectasis. Coronary calcifications. Borderline cardiomegaly. Liver: Subcentimeter left lobe lesions, too small characterize, probably cysts. Gallbladder and biliary system: Nondistended gallbladder. Nonspecific pericholecystic fluid and edema, mild. Mildly prominent CBD at 6 to 7 mm. Pancreas: No ductal dilation. Mild to moderate parenchymal atrophy Spleen: Nonenlarged Adrenals: No discrete nodules Kidneys: No solid renal mass. No hydronephrosis. Left upper pole renal cyst. Vessels and lymph nodes: Main portal vein is patent. Moderate aortoiliac atherosclerotic calcifications. Abdominal aortic aneurysm, measuring up to 3.2 cm. IVC duplication, normal variant. No lymph nodes enlarged by size criteria. Bowel and peritoneum: No bowel obstruction. Moderate to large proximal colonic fecal loading. Normal diameter appendix. No drainable abscess or ascites. No hemoperitoneum. No retroperitoneal hematoma. Questionable area of focal wall thickening is seen in the ascending colon. No definite contrast extravasation. Body wall: Unremarkable Pelvis: Bladder is distended, unremarkable. Pessary in place. Uterus is absent Bones: No aggressive appearing osseous abnormality. There are degenerative osseous changes. Rightward lumbar spinal curvature. IMPRESSION: No hemoperitoneum or retroperitoneal hematoma. No definite contrast extravasation. Questionable area of focal wall thickening in the ascending colon. Consider colonoscopy correlation in the setting of anemia. Nondistended gallbladder. Nonspecific mild pericholecystic fluid and edema are seen. Consider ultrasound correlation if clinically indicated. Abdominal aortic aneurysm measuring up to 3.2 cm. Abdominal aorta is tortuous. Other findings above. Reviewed by: Brandon Lynn MD on 09/26/2025 8:53 PM PST Approved by: Brandon Lynn MD on 09/26/2025 8:53 PM PST Station ID: [id number]
--- NOTE | 2025-09-26 21:15 | HISTORY & PHYSICAL EXAMINATION ---
Chief Complaint Chief Complaint Chief Complaint: Dizziness History of Present Illness Admitted From Admitted From:: Home History Obtained From History obtained from: Patient interview, chart review Exam Limitations: Patient is a poor historian, Possibly demented History of Present Illness HPI Comment/Other: 74-year-old female with history of chronic shoulder pain, hypertension, PTSD, asthma who presents with dizziness. She reports she has had dizziness for quite some time, with several falls leading to chronic pain in her shoulder. There is documentation from December of this year saying that she has had shoulder pain for several months before that time and she has already had it imaged and no fractures were found. ROS is limited due to symptomatic anemia, her conversation is delayed and she jumps from topic to topic without seemingly any point. She reports the shoulder pain, the dizziness, and the recent shingles flare, for which she is on valacyclovir. In the ED, she was noted to have a hemoglobin of 5.6. Iron panel was added on by ER provider, showing iron less than 10, TIBC 483. CT head was performed which showed no acute abnormality. CT abdomen/pelvis showed questionable area of focal wall thickening in the ascending colon, and abdominal aortic aneurysm measuring 3.2 cm. ED provider reports there is no blood in the rectal vault, patient denies melena. ED provider ordered type and screen, and hospitalist was contacted for observation for acute symptomatic anemia/iron deficiency anemia Meds/Allgy Home Medications Ambulatory Orders Medication Instructions Recorded Confirmed albuterol sulfate 90 mcg/actuation 2 puff inhalation Q 6HR PRN Asthma 03/23/15 06/07/25 aerosol inhaler fluticasone propionate 50 2 spr intranasal DAILY 03/2306/07/25 mcg/actuation nasal spray,suspension gabapentin 300 mg capsule 900 mg PO DAILY 03/23/1511/30 montelukast 10 mg tablet 10 mg PO DAILY 03/23/1511/30 (Singulair) omeprazole 20 mg capsule,delayed 1 cap PO DAILY 06/07/25 release ketoconazole 2 % topical cream 1 applic TP BID PRN As Needed Per 02/19/17 06/07/25 Provider Orders cyclobenzaprine 5 mg tablet 1 tab PO DAILY 01/07/18 meloxicam 7.5 mg tablet 1 tab PO DAILY 01/07/1811/30 felodipine 5 mg tablet,extended 5 mg ORAL DAILY 06/07/25 release 24 hr lidocaine 5 % topical patch 1 ea topical DAILY PRN Phill n #10 03/22/18 06/07/25 patches docusate sodium 100 mg capsule 1 tab PO DAILY 05/01/21 06/07/25 (Stool Softener) magnesium hydroxide 2,400 mg/10 mL PO DAILY 05/01/21 0 06/07/25 oral suspension (Milk Of Magnesia Concentrated) methylcellulose (with sugar) oral 1 PO DAILY 05/01/21 06/07/25 powder (Citrucel (sucrose) oral powder) polyethylene glycol 3350 17 gram 1 PO BID 05/01/2111/30 oral powder packet lactulose 10 gram/15 mL oral 10 g (15 mL) PO TID PRN 0 05/25/21 06/07/25 solution (Generlac) constipation #300 mL pantoprazole 40 mg granules 40 mg PO DAILY #30 grams 0 11/20/22 06/07/25 delayed-release for susp in packet (Protonix) Cymbalta 20 mg capsule,delayed 20 mg PO DAILY #60 caps 12/31/24 06/07/25 release (duloxetine) diclofenac sodium 1 % topical gel 2 g topical QID #100 grams 09/24/25 09/24/25 (Arthritis Pain (diclofenac)) valacyclovir 1 gram tablet 1,000 mg PO TID 7 days #21 tabs 09/24/25 09/24/25 Allergies Allergies Allergy/AdvReac Type Severity Reaction Status Date / Time almond Allergy Anaphylaxis Verified 09/26/25 17:59 papaya Allergy Anaphylaxis Verified 09/26/25 17:59 ibuprofen (From Motrin) AdvReac Headache Verified 09/26/25 17:59 PFSH Active Problems All Active Problems (Updated 09/26/25 @ 21:35 by Nolan Laureano DNP) Cognitive and behavioral changes (Acute) Iron deficiency anemia (Acute) Symptomatic anemia (Acute) Shingles (Acute) BMI 27.0-27.9,adult (Acute) HTN (hypertension) (Acute) Chronic neck pain (Acute) Chronic left shoulder pain (Acute) Social History Social History (Updated 06/11/25 @ 15:08 by Jitendra Mancilla PA-C) Smoking Status: Smoker with current status unk How many cigarettes a day do you smoke? (20 cigarettes=1 Pk): 15 Do you dip or chew tobacco?: No Patient requests smoking cessation consult: No Initiate information on smoking cessation: No Do you feel safe in your home environment?: Yes History of physical, verbal, emotional, or financial abuse?: No POLST Patient has POLST: No Review of Systems Status of ROS: unobtainable due to mental status Exam Exam Vital Signs: Vital Signs x48h Temp Pulse Resp BP Pulse Ox 09/26/25 17:55 98 F 73 18 166/57 H 98 Constitutional Hyperactive elderly female [facility] normocephalic and head/scalp atraumatic Poor dentition Eyes PERRL Chest Shingles rash along right side of chest, Lesions sloughing over Respiratory breath sounds equal bilaterally and normal respiratory effort Cardiovascular normal heart rate noted and regular rhythm noted Gastrointestinal abdomen normal to inspection Extremities normal to inspection Neurology GCS 15 Psychiatry mental status grossly normal Speech tangential, delayed Skin Shingles rash on left chest, sloughing over Conclusion/Plan Problem List (1) Symptomatic anemia: (2) Iron deficiency anemia: (3) Dizziness: Plan: For all of the above: Patient has a history of anemia, dizziness going back for some time. I am seeing notes related iron deficiency anemia as far back as 2014. She had a colonoscopy in 2020 which revealed hemorrhoids. She denies melanotic stools or chris GI bleeding. Her hemoglobin in the ED was 5.6, which triggered the ED adding on an iron panel which revealed an iron level too low to count and a TIBC of 483. Case was presented to general surgery, who will follow if needed. I believe that this is primarily an iron deficiency anemia and there is likely no surgical intervention needed ED ordered type and screen Transfuse 2 units PRBC now, recheck hemoglobin after transfusion Ferrous sulfate p.o. 325 mg twice daily with meals starting tonight One-time dose IV ferric gluconate, this will have to be in the morning as we do not have an in-house pharmacist after hours She would likely benefit from outpatient iron management, whether oral or IV (4) Shingles: Plan: She was seen in the walk-in clinic for this on 09/24 and started on valacyclovir. Continue valacyclovir Lesions are sloughing over, no need for isolation Have ordered one-time dose of Toradol for pain and Benadryl for itching P.o. Tylenol 650 mg I have also reordered her home dose gabapentin as this may help Qualifiers: Herpes zoster complications: without complications Qualified Code(s): B 02.9 - Zoster without complications (5) Chronic left shoulder pain: Plan: She has had shoulder pain for some time, this is unchanged This pain was mentioned in ED note earlier this year reflecting normal imaging No gross deformity Voltaren, Tylenol, lidocaine (6) Cognitive and behavioral changes: Plan: Patient speech is very tangential, I suspect that the patient is not caring for herself adequately given she is no longer receiving iron supplementation and she reported to the ED provider that she is not sure if she is actually taking her prescribed antivirals. Patient also appears agitated to me, Constantly fidgeting Patient may benefit from cognitive eval when her hemoglobin has been corrected Check UA Plan Place in observation Will maintain full code for now as there is no POLST on file and patient's conversation is very difficult to redirect Her emergency contact is listed as her son Lab Results Lab results reviewed: Yes 09/26/25 19:05 09/26/25 19:05 Core Measures Anticipated LOS I expect patient to be DC'd or transferred within 96 hours.: Yes DVT/VTE - Prophylaxis VTE/DVT Prophylaxis med ordered at admit?: Yes
[2025-09-26] MEDS ORDERED: DICLOFENAC SODIUM 1% GEL 50 GM TUBE TOP PRN (21:50)
[2025-09-26] MEDS ORDERED: SODIUM CHLORIDE FLUSH 0.9% 10 ML SYRINGE IVP PRN (21:50)
[2025-09-26] MEDS ORDERED: ACETAMINOPHEN 325 MG TABLET PO PRN (21:50)
[2025-09-26] MEDS ORDERED: ONDANSETRON ODT 4 MG TABLET TL PRN (21:50)
[2025-09-26] MEDS ORDERED: hydrALAZINE INJ 20 MG/ML VIAL IVP PRN (22:01)
[2025-09-26 22:03] LABS: GLUCOSE, URINE (UA) NEGATIVE (NEGATIVE); KETONES,URINE (UA) NEGATIVE (NEGATIVE); OCCULT BLOOD,URINE NEGATIVE (NEGATIVE)
[2025-09-26] MEDS: FERROUS SULFATE 325 MG TABLET PO SCH (22:48)
[2025-09-26] MEDS: GABAPENTIN 300 MG CAPSULE PO SCH (22:48)
[2025-09-26] MEDS: LACTATED RINGERS 1,000 ML IV SCH (23:01)
[2025-09-26] MEDS: KETOROLAC 15 MG/ML VIAL IVP STA (23:13)
[2025-09-26] MEDS: SODIUM CHLORIDE FLUSH 0.9% 10 ML SYRINGE IVP SCH (23:17)
[2025-09-27] MEDS ORDERED: SODIUM CHLORIDE 0.9% 500 ML IV ONE
[2025-09-27] MEDS ORDERED: IPRATROPIUM/ALBUTEROL 3 ML NEB INH PRN (01:20)
--- NOTE | 2025-09-27 01:22 | PROVIDER PROGRESS NOTE ---
Hospitalist Cross-cover Note Cross-Cover Note Cross-Cover Note: per rn " pt admitted for iron deficiency anemia, hgb 5.6 Just FYI, pt refused Iron tablets, Gabapentin, Lisinopril and Hydralazine, BP 170/60s, pt educated the risk of not having these medications, Despite all efforts to educate this pat ient, pt adamantly refusing these meds. Pt agreed on blood transfusion" transfuse 1 unit duoneb prn d/t reports of sob
[2025-09-27] MEDS: ONDANSETRON 4 MG/2 ML VIAL IVP PRN (05:23)
[2025-09-27 06:10] LABS: HCT - HEMATOCRIT 28.4 % (37.0-47.0); HGB - HEMOGLOBIN 8.1 g/dL (12.0-16.0); MEAN PLATELET VOLUME 8.6 fL (7.9-10.8); NRBC ABSOLUTE COUNT (AUTO) 0.00 x10^3/uL; NUCLEATED RED BLOOD CELLS AUTO 0.0 /100WBC; PLT - PLATELET COUNT 352 10^3/uL (130-450); RED CELL DISTRIBUTION WIDTH 20.9 % (12.0-15.0)
[2025-09-27 06:13] LABS: SLIDE REVIEW? Indicated
[2025-09-27 06:24] LABS: BUN - BLOOD UREA NITROGEN 14.0 mg/dL (6-20); CARBON DIOXIDE - CO2 25.0 mmol/L (21-32); CREATININE 0.8 mg/dL (0.6-1.3); GFR - MDRD 70.0 (>89)
[2025-09-27] MEDS: FERRIC GLUCONATE 62.5 MG/5 ML VIAL IVP ONE (08:16)
[2025-09-27] MEDS: ENOXAPARIN 40 MG/0.4 ML SYRINGE SUBQ SCH (08:16)
--- NOTE | 2025-09-27 11:40 | PHARMACY PROGRESS NOTE ---
Best Possible Medication History Admit Date and Time: 09/26/252103 Home Medications Medication Instructions Recorded Confirmed Type albuterol sulfate 90 mcg/actuation 2 puff inhalation Q 6HR PRN Asthma 03/23/15 09/27/25 History aerosol inhaler fluticasone propionate 50 2 spr intranasal DAILY PRN a llergy 03/23/15 09/27/25 History mcg/actuation nasal symptoms spray,suspension valacyclovir 1 gram tablet 1,000 mg PO TID 7 days #21 tabs 09/24/25 09/27/25 Rx diclofenac sodium 1 % topical gel 2 g topical QID PRN pain 09/27/25 09/27/25 History (Arthritis Pain (diclofenac)) Processed by: Pharmacy (Medication reconciliation completed by Pharmacy Tenisha Alcazar) Medications reviewed in ED?: No Medication History completed: Yes Patient Interview: Completed Secondary Source(s): Insurance records [facility] Statement: As the person ultimately responsible for medication therapy, providers are able to order a medication from an existing home medication list in [facility] via the "Reconcile Routine" prior to Confirmation of that medication by supportability engineer. Such practice is discouraged except when the physician, in their clinical judgment, deems that a medical need exists for a medication without regard to previous use.
--- NOTE | 2025-09-27 12:43 | XRAY Report ---
PROCEDURE: XR Humerus LT INDICATIONS: arm pain after fall TECHNIQUE: 2 views of the humerus were acquired. COMPARISON: None. FINDINGS: Bones: No fractures or dislocations. No suspicious bony lesions. Soft tissues: No suspicious soft tissue calcifications or masses. IMPRESSION: No acute bony abnormality. Reviewed by: Francisco Tapia MD on 09/27/2025 12:40 PM PST Approved by: Francisco Tapia MD on 09/27/2025 12:40 PM [facility] Station ID: [id number]
--- NOTE | 2025-09-27 14:13 | Discharge Summary ---
Discharge Summary Admit Date: 09/26/25 Discharge Date: 09/27/25 Discharging Provider: Nolan Laureano Primary Care Provider: No PCP Code Status: Attempt Resuscitation DIAGNOSES Discharge Diagnoses with Status of Each Condition: Symptomatic anemiasecondary to iron deficiency Iron deficiency anemiahave been informed she is on PPI and H2 evgeny. Discharging on oral iron supplement. Encouraging PCP follow-up Dizzinesslikely secondary to iron deficiency anemia. CT head negative, no orthostasis, no nystagmus Shinglesalready started on Valtrex outpatient Chronic left shoulder painrepeated x-ray, still no fracture Cognitive and behavioral changesI am less concerned now about cognitive decline, Patient just does not prioritize adherence to medical recommendations AAAWill need outpatient follow-up HPI History of Present Illness: 74-year-old female with history of chronic shoulder pain, hypertension, PTSD, asthma who presents with dizziness. She reports she has had dizziness for quite some time, with several falls leading to chronic pain in her shoulder. There is documentation from December of this year saying that she has had shoulder pain for several months before that time and she has already had it imaged and no fractures were found. ROS is limited due to symptomatic anemia, her conversation is delayed and she jumps from topic to topic without seemingly any point. She reports the shoulder pain, the dizziness, and the recent shingles flare, for which she is on valacyclovir. In the ED, she was noted to have a hemoglobin of 5.6. Iron panel was added on by ER provider, showing iron less than 10, TIBC 483. CT head was performed which showed no acute abnormality. CT abdomen/pelvis showed questionable area of focal wall thickening in the ascending colon, and abdominal aortic aneurysm measuring 3.2 cm. ED provider reports there is no blood in the rectal vault, patient denies melena. ED provider ordered type and screen, and hospitalist was contacted for observation for acute symptomatic anemia/iron deficiency anemia HOSPITAL COURSE Hospital Course: Patient was placed in observation and received 3 units of PRBC overnight. She was given 1 dose of IV iron this morning. She has refused any oral iron, stating she has history of constipation related to this. I attempted to explain her need for iron supplementation, and possibilities of starting bowel regimen since she still refuses this. She was noted to be hypertensive, with highest blood pressure 177/71. I attempted to start her on lisinopril for this, but she refused it. She continued to complain of left arm pain. I ordered another x- ray of that arm and it was without fracture. She reports dizziness, but is not related to activity and has no associated nystagmus or really any objective signs. CT head is clear, no orthostasis. She was evaluated by physical therapy, who recommended SNF versus home health. She would not qualify for SNF, so she is discharging home with home health. I have ordered lisinopril and iron supplementation in the outpatient setting, I suspect she will not take this ALLERGIES Allergies Allergy/AdvReac Type Severity Reaction Status Date / Time almond Allergy Anaphylaxis Verified 09/26/25 17:59 papaya Allergy Anaphylaxis Verified 09/26/25 17:59 ibuprofen (From Motrin) AdvReac Headache Verified 09/26/25 17:59 MEDICATIONS Ambulatory Orders Medication Instructions Recorded Confirmed albuterol sulfate 90 mcg/actuation 2 puff inhalation Q 6HR PRN Asthma 03/23/15 09/27/25 aerosol inhaler fluticasone propionate 50 2 spr intranasal DAILY PRN a llergy 03/23/15 09/27/25 mcg/actuation nasal symptoms spray,suspension valacyclovir 1 gram tablet 1,000 mg PO TID 7 days #21 tabs 09/24/25 09/27/25 diclofenac sodium 1 % topical gel 2 g topical QID PRN pain 09/27/25 09/27/25 (Arthritis Pain (diclofenac)) ferrous sulfate 325 mg (65 mg 325 mg PO BIDWM 30 days #60 tabs 09/27/25 iron) tablet lisinopril 20 mg tablet 20 mg PO DAILY 30 days #30 t abs 09/27/25 PHYSICAL EXAM AT DISCHARGE Vital Signs: Vital Signs x48h Temp Pulse Resp BP Pulse Ox O2 Flow Rate 09/27/25 13:52 97.7 F 71 20 162/79 H 93 09/27/25 08:15 2 09/27/25 08:14 98.1 F 70 18 150/74 H 94 09/27/25 06:24 98.2 F 65 20 160/70 H 97 LABS 09/27/25 06:02 09/27/25 06:02 Discharge Plan Discharge Patient Disposition: 01 Home, Self Care Condition: Stable Medically Cleared Date:: 09/27/25 Prescriptions: New lisinopril 20 mg Tablet 20 mg PO DAILY 30 Days Qty: 30 0RF ferrous sulfate 325 mg (65 mg iron) Tablet 325 mg PO BIDWM 30 Days Qty: 60 0RF Continued albuterol sulfate 8.5 GM HFA aerosol inhaler 2 puff inhalation Q6HR PRN (Reason: Asthma) fluticasone propionate 120 SPRAYS spray,suspension 2 spr intranasal DAILY PRN (Reason: allergy symptoms) diclofenac sodium [Arthritis Pain (diclofenac)] 1 % gel 2 g topical QID PRN (Reason: pain) Rx Instructions: Apply to affected shoulder for pain. valacyclovir 1 gram tablet 1,000 mg PO TID 7 Days Qty: 21 2RF Diet: Regular Health Concerns: You came into the hospital with pain in your left arm which has been ongoing for some time. You also reported dizziness. Your workup was significant for severe iron deficiency anemia. You have had longstanding history of this, as I can see that you have had appointments at our [facility] [place] clinic for iron supplementation. You also reported to our dietitian that you take medications like omeprazole and Pepcid, which can sometimes impair iron absorption. Regardless, you are not getting enough iron, and this is causing you to be anemic, which is likely contributing to your dizziness. I have ordered oral iron supplementation. You reported that this sometimes gives you constipation. I would suggest starting a bowel regimen with supplemental fiber to help keep you regular, and consider every other day dosing if it is still too much. You were also hypertensive while you were here, I have ordered a medication called lisinopril which will help reduce your blood pressure. Your high blood pressure could also be contributing to your dizziness. Your symptoms are not concerning for vertigo, you have a CT head which showed no acute abnormality, and your vital signs were not orthostatic, meaning your blood pressure did not drop when you stand up. Please follow-up with PCP regarding your iron deficiency anemia and your hypertension I have ordered home health referral, which means people will be coming out to your house to help you with your medications and with physical therapy The x-ray of your arm showed no fracture Print Language: Khmer Patient Instructions: ED Anemia, Iron-Deficiency (Adult) Stand Alone Forms: PCP List, SBIRT Vitals documented within 30 minutes of discharge?: Yes
--- NOTE | 2025-09-27 14:13 | PT Plan of Care ---
PT Plan of Care Physical Therapy Plan of Care: Diagnosis Diagnosis anemia Diagnosis recent shingles flare Referring Provider Nolan Laureano Patient Status Observation Chief Complaint Chief Complaint weakness, dizziness Onset of Chief Complaint [employer] Assessment Assessment Pt is a 74yo F referred for PT eval d/t dizziness and frequent falls. Admitted with anemia, of note had a recent shingles flare across midchest and back. Per chart review not sloughing and no contact precautions. Reports pain in this area as well as BL shoulder pain. PMH includes HTN, asthma, and newly diagnosed AAA 3.2cm. Cleared for eval by hospitalist. Upon PT eval, pt reports chronic dizziness and frequent falls but willing to participate in PT eval. Able to transfer to EOB with additional time for task and CGA overall. When seated at EOB, pt has posterior LOB requiring PT assist to avoid fall and states "this is what happens at home" further explaining she will feel dizzy and lose balance. Brief screen for BPPV or other vestibular cause of dizziness but no nystagmus noted and pt description of dizziness does not indicate vertiginous cause. Pt is tangential and benefits from cues to attend to task. She requires maxA for donning AFOs and CGA to Braulio for stand pivot transfer to chair with her own SPC. Unable to progress gait assessment d/t weakness, fall risk, and pt distractability. Pt would benefit from FWW but she states she cannot fit one in her home. When discussing home safety and mobility, pt is receptive to PT in SNF or home setting but reports several concerns and overall feels this may not benefit her. Given overall presentation of weakness, dizziness, frequent falls, and limited self care capacity, pt may benefit from continued skilled PT. When medically clear, PT rec dc to SNF vs home pending goals of care and progress during acute stay. Goals Improve bed mobility to: Modified Independent Improve supine to sit to: Modified Independent Improve sit to stand to: Modified Independent Improve pivot transfer ability Modified Independent to: Improve sit to supine to: Modified Independent Improve gait ability to: CGA Assistive Device Used: Front Wheeled Walker Improve Sitting Balance to: Good Improve Standing Balance to: Fair PT Plan of Care Duration 3-5x/wk during acute stay Discharge Recommendations Discharge Location SNF vs home Support/Services Needed Home Health P.T. DC Equipment Recommended Front wheeled walker Transport Needs at Discharge POV vs wc van
[2025-09-27 15:06] VITALS: BP 169/76; TEMP 97.9; O2SAT 94
== END 2025-09-27 15:06 | disposition home or self-care (01) ==
LOC: ED 17:45 → MS2 17:45
PROVIDERS: ADMIT Nurse Practitioner Acute Care; ATTEND Nurse Practitioner Acute Care
DX: I71.40 Abdominal aortic aneurysm, without rupture, unspecified; Z91.81 History of falling; G89.29 Other chronic pain; B02.9 Zoster without complications; M25.512 Pain in left shoulder; I10 Essential (primary) hypertension; J45.909 Unspecified asthma, uncomplicated; R41.89 Other symptoms and signs involving cognitive functions and awareness; F17.210 Nicotine dependence, cigarettes, uncomplicated; F43.10 Post-traumatic stress disorder, unspecified; D50.9 Iron deficiency anemia, unspecified